=== PATIENT | male | born 1965 | race Caucasian/White ===

== ENCOUNTER → 2016-12-28 | Outpatient (CLI) | payer OTHER ==
--- NOTE | 2016-12-28 23:04 | MR ---
EXAMINATION TYPE: MR knee LT wo con DATE OF EXAM: 12/28/2016 6:12 PM COMPARISON: NONE HISTORY: Left Knee Pain for 30 years TECHNIQUE: Multiplanar, multisequence imaging of the left knee is performed without IV contrast. FINDINGS: The anterior and posterior cruciate ligaments are intact. There is a small horizontal defect in the a nterior horn of the medial meniscus. There is similar horizontal linear increased signal in the anter ior horn lateral meniscus. The collateral ligaments are intact. There is a small knee joint effusion. I see no bony destructive process. There is no sign of a fracture. There are small subchondral areas of increased signal on both sides of the medial joint space consistent with degenerative cyst format ion. There is slight narrowing of the medial joint space. IMPRESSION: Osteoarthritic changes mainly in the medial joint space. Small horizontal tears of the anterior horn of the lateral meniscus and the medial meniscus. Small degenerative cyst formation in the medial comp artment on both sides of the medial joint space. Small joint effusion.
== END | disposition home or self-care (01) ==
LOC: RADMRIMAIN 17:35
PROVIDERS: ATTEND Orthopaedic Surgery
DX: S83.282A Other tear of lateral meniscus, current injury, left knee, initial encounter (principal); M17.12 Unilateral primary osteoarthritis, left knee; M25.862 Other specified joint disorders, left knee

== ENCOUNTER 2019-09-22 11:52 | Inpatient (IN) | payer OTHER ==
[2019-09-22] MEDS ORDERED: KETOROLAC 60 MG/2 ML VIAL IVP STA (12:35)
[2019-09-22] MEDS ORDERED: ONDANSETRON 4 MG/2 ML VIAL IVP STA (12:35)
[2019-09-22] MEDS ORDERED: HYDROmorphone 1 MG/ML 1 ML SYRINGE IVP STA (12:35)
--- NOTE | 2019-09-22 12:40 | ED ---
General Adult HPI - General Chief complaint: Fall Stated complaint: Fell shoulder pain/[facility] Time Seen by Provider: 09/22/19 12:15 Source: patient, RN notes reviewed, old records reviewed Mode of arrival: wheelchair Limitations: no limitations - History of Present Illness Initial comments: This is a 53-year-old male who presents emergency Department complaining of left lateral left anterior rib pain. Patient states he fell on the ice yesterday went [facility] where they diagnosed him with 5 fractured ribs. Patient states the pain is unbearable today and he is not short of breath but it is difficult to breathe. His any kind of movement makes the pain worse. Patient denies any other injury at this time. Patient states yesterday did a CAT scan of his chest and an x-ray of his chest as well as a shoulder x-ray. Patient denies any fevers. Patient denies any belly pain. Patient has any back pain. Patient states he did hit his head history also CAT scan his head was normal. Patient denies any headache today or any neck pain today - Related Data Allergies Allergy/AdvReac Type Severity Reaction Status Date / Time Sulfa (Sulfonamide Allergy Rash/Hives Verified 09/22/19 12:19 Antibiotics) Review of Systems ROS Statement: Those systems with pertinent positive or pertinent negative responses have been documented in the HPI. ROS Other: All systems not noted in ROS Statement are negative. Past Medical History Past Medical History: Hypertension History of Any Multi-Drug Resistant Organisms: None Reported Past Surgical History: No Surgical Hx Reported Past Psychological History: Anxiety, Depression Smoking Status: Never smoker Past Alcohol Use History: None Reported Past Drug Use History: None Reported General Exam - General Exam Comments Initial Comments: GENERAL: Patient is well-developed and well-nourished. Patient is nontoxic and well- hydrated and is in moderate distress. Patient is diaphoretic ENT: Neck is soft and supple. No significant lymphadenopathy is noted. Oropharynx is clear. Moist mucous membranes. Neck has full range of motion without eliciting any pain. EYES: The sclera were anicteric and conjunctiva were pink and moist. Extraocular movements were intact and pupils were equal round and reactive to light. Eyelids were unremarkable. PULMONARY: Unlabored respirations. Good breath sounds bilaterally. No audible rales rhonchi or wheezing was noted. CARDIOVASCULAR: There is a regular rate and rhythm without any murmurs gallops or rubs. Patient has significant left anterior chest wall pain as well as left lateral chest wall pain. ABDOMEN: Soft and nontender with normal bowel sounds. No palpable organomegaly was noted. There is no palpable pulsatile mass. SKIN: Skin is clear with no lesions or rashes and otherwise unremarkable. NEUROLOGIC: Patient is alert and oriented x3. Cranial nerves II through XII are grossly intact. Motor and sensory are also intact. Normal speech, volume and content. Symmetrical smile. MUSCULOSKELETAL: Normal extremities with adequate strength and full range of motion. Moving the left arm does elicit pain in the chest and a little pain in the shoulder. Patient's pain. To be anterior shoulder LYMPHATICS: No significant lymphadenopathy is noted PSYCHIATRIC: Normal psychiatric evaluation. Limitations: no limitations Course Vital Signs 09/22/19 09/22/19 12:15 13:39 Temperature 99.2 F Pulse Rate 105 H 95 Respiratory 30 H 28 H Rate Blood Pressure 147/98 142/64 O2 Sat by Pulse 91 L 92 L Oximetry Medical Decision Making - Medical Decision Making Patient was given Toradol and Dilaudid when he arrived and was feeling considerably better but still having quite a bit of pain and the oxygen down to about 9192% on room air. Chest x-ray shows subcutaneous air and rib fractures. I reviewed the x-rays and CAT scan from [facility] from yesterday. I spoke with Dr. Borrero he wanted the patient admitted to him with a consult to anesthesia and pulmonary. At this time he did not want a CAT scan of the chest. I wrote admitting orders Disposition Clinical Impression: Subcutaneous air, Multiple fractures of ribs of left side Disposition: ADMITTED IP TO THIS HOSP Referrals: Joseph Turner DO [Primary Care Provider] - 1-2 days Time of Disposition: 14:04
--- NOTE | 2019-09-22 13:24 | XR ---
EXAMINATION TYPE: XR chest 2V DATE OF EXAM: 09/22/2019 COMPARISON: Outside study 09/21/2019 HISTORY: Shortness of breath TECHNIQUE: Frontal and lateral views of the chest are obtained. FINDINGS: Lung volumes are diminished. There is subcutaneous emphysema along the left chest wall extending into the neck. Multiple left-sided rib fractures are again noted. Definite pneumothorax not identified wi th certainty. Basilar atelectasis and elevation right hemidiaphragm. Heart size is stable. Mediastinal structures are stable and grossly unremarkable. No evidence for hilar prominence. Degenerative changes dorsal spine. IMPRESSION: 1. There is subcutaneous emphysema along the left chest wall extending into the neck. Multiple left-s ided rib fractures are again noted. Definite pneumothorax not identified with certainty. Basilar atel ectasis and elevation right hemidiaphragm.
[2019-09-22] MEDS ORDERED: NALOXONE 0.4 MG/ML 1 ML VIAL IV PRN (14:05)
[2019-09-22] MEDS: HYDROmorphone 1 MG/ML 1 ML SYRINGE IVP PRN ×3 (15:19→23:32)
[2019-09-22] MEDS: LIDOCAINE 5% PATCH TOPICAL SCH (18:48)
[2019-09-22] MEDS ORDERED: ALPRAZolam 0.25 MG TAB PO PRN (20:38)
[2019-09-22] MEDS ORDERED: ONDANSETRON 4 MG TAB PO PRN (20:38)
[2019-09-22] MEDS: AMITRIPTYLINE HCL 25 MG TAB PO SCH (21:54)
[2019-09-22] MEDS: busPIRone HCl 5 MG TAB PO SCH (21:54)
[2019-09-22] MEDS: TAMSULOSIN 0.4 MG CAP.ER.24H PO SCH (21:54)
[2019-09-22] MEDS: HYDROcodone/APAP 10-325MG 1 EACH TAB PO PRN (21:54)
[2019-09-22] MEDS: PANTOPRAZOLE 40 MG TABLET PO SCH (21:58)
[2019-09-23 00:29] LABS: Glucose,Whole Blood 135 mg/dL (75-99)
--- NOTE | 2019-09-23 01:24 | XR ---
EXAMINATION TYPE: XR chest 1V portable DATE OF EXAM: 09/23/2019 COMPARISON: Yesterday HISTORY: Difficulty breathing TECHNIQUE: Single view FINDINGS: There is poor inspiration. There is elevation of the diaphragms. There is apparent soft tis ramy air on the left lateral chest wall and base of the neck. There is no heart failure. There is no p neumothorax. IMPRESSION: Atelectasis at the lung bases unchanged compared to yesterday. Soft tissue air on the lef t side. No heart failure seen.
[2019-09-23] MEDS ORDERED: RX INFO: IV CONTRAST WAS GIVEN 1 EACH MISC MISCELLANE PRN (02:33)
[2019-09-23 03:28] LABS: Basophils # (A) 0.3 k/uL (0-0.2); Basophils % (A) 2 %; Eosinophils # (A) 0.3 k/uL (0-0.7); Eosinophils % (A) 1 %; HCT 45.6 % (39.0-53.0); HGB 14.8 gm/dL (13.0-17.5); Lymphocytes # (A) 0.7 k/uL (1.0-4.8); Lymphocytes % (A) 3 %; MCH 29.6 pg (25.0-35.0); MCHC 32.5 g/dL (31.0-37.0); MCV 91.1 fL (80.0-100.0); Mean Platelet Volume 7.3; Monocytes # (A) 1.3 k/uL (0-1.0); Monocytes % (A) 6 %; Neutrophils # (A) 19.4 k/uL (1.3-7.7); Neutrophils % (A) 87 %; Platelet Count 215 k/uL (150-450); RDW 13.2 % (11.5-15.5); WBC 22.3 k/uL (3.8-10.6)
[2019-09-23 03:34] LABS: Calcium 8.9 mg/dL (8.4-10.2); Potassium 4.6 mmol/L (3.5-5.1)
[2019-09-23] MEDS: HYDROmorphone 1 MG/ML 1 ML SYRINGE IVP PRN ×3 (03:40→14:23)
--- NOTE | 2019-09-23 04:27 | CT ---
EXAMINATION TYPE: CT chest angio for PE DATE OF EXAM: 09/23/2019 COMPARISON: HISTORY: SOB CT DLP: 1073 mGycm Automated exposure control for dose reduction was used. CONTRAST: Performed with IV Contrast, patient injected with 80 mL of Isovue 370. Multiple axial sections were obtained from the thoracic inlet to the diaphragm with intravenous contr ast. There are 3-D post processed images. There is extensive soft tissue air on the left side of the chest extending into the neck. There is no mediastinal adenopathy. There are no hilar masses. Heart size is normal. There is some atelectasis a t the lung bases. No pneumothorax. Thoracic aorta shows no aneurysm or dissection. Exam limited by zora alonzo's size. I see no filling defects in the pulmonary arteries. The bony thorax is intact. IMPRESSION: No evidence of pulmonary embolism. Extensive left-sided soft tissue air. Bilateral infiltrates and atelectasis in the mid and lower lung vela.
[2019-09-23] MEDS: HYDROcodone/APAP 10-325MG 1 EACH TAB PO PRN ×2 (06:14→09:56)
[2019-09-23] MEDS: PANTOPRAZOLE 40 MG TABLET PO SCH ×2 (06:23→18:26)
[2019-09-23] MEDS: LIDOCAINE 5% PATCH TOPICAL SCH (08:20)
[2019-09-23] MEDS: LISINOPRIL 20 MG TAB PO SCH (08:21)
[2019-09-23] MEDS: buPROPion XL 300 MG TAB.ER.24H PO SCH (08:21)
[2019-09-23] MEDS ORDERED: NON FORMULARY DRUG (Fluoxetine Hcl [Prozac] 40 MG) PO SCH (09:00)
[2019-09-23] MEDS ORDERED: FLUoxetine HCL 20 MG CAP PO SCH (09:00)
[2019-09-23] MEDS ORDERED: methylPREDNISolone SOD SUCCI 40 MG/ML 1 ML VIAL IV SCH (09:45)
[2019-09-23 11:30] LABS: ABG Base Excess 0.9 mmol/L; ABG HCO3 26 mmol/L (21-25); ABG PCO2 46 mmHg (35-45); ABG PH 7.36 (7.35-7.45); ABG PO2 92 mmHg (83-108); ABG TCO2 28 mmol/L (19-24); Allen Test Performed? Yes
[2019-09-23] MEDS: SODIUM CHLORIDE 0.9% 1,000 ML IV SCH ×2 (11:46→21:35)
[2019-09-23] MEDS: IPRATROPIUM-ALBUTEROL 3 ML NEB INHALATION SCH ×3 (11:50→20:09)
--- NOTE | 2019-09-23 13:02 | US ---
EXAMINATION TYPE: US kidneys/renal and bladder DATE OF EXAM: 09/23/2019 COMPARISON: NONE CLINICAL HISTORY: assess for CKD. CKD, exam done portable. EXAM MEASUREMENTS: Right Kidney: 11.9 x 5.9 x 5.3 cm Left Kidney: n/a Difficult and limited study due to patient body habitus Right Kidney: limited visualization, no hydronephrosis or masses seen Left Kidney: not visualized due to overlying bowel gas Bladder: wnl, sonolucent Bilateral Jets seen: no IMPRESSION: Limited examination with nonvisualization of the left kidney. Ultrasound portions visualized are unre markable
--- NOTE | 2019-09-23 13:52 | P.GSCN ---
History of Present Illness Consult date: 09/23/19 Reason for Consult: Fractured ribs Requesting physician: Leonela Lim History of present illness: This is a 53-year-old active gentleman who follows on an outpatient basis with Dr. Joseph Angel. He has a previous medical history of hypertension, anxiety/depression. Apparently he fell on the ice on Saturday in the parking lot on the way to his truck. He states he believes he fell on his shoulder but he blacked out so he is not positive, and there were no witnesses to his fall. He went to [facility] for evaluation, chest x-ray completed there demonstrated left-sided rib fractures. In addition a CT of the brain was completed per the emergency room notes, and there was no acute head injury. He was treated with pain medication and discharged home. Once home his pain continued to increase and he had increased difficulty breathing so he presented to [facility] emergency room for further evaluation and treatment. Chest x-ray demonstrated low lung volumes, subcutaneous emphysema on the left chest wall, and re- demonstration of left-sided rib fractures. He was admitted for pain control with consultation placed to Dr. Lim from pulmonology as well as anesthesia. He continued to have pain and increased shortness of breath and was taken for chest CTA this morning which confirmed subcutaneous emphysema, atelectasis, and rib fractures in ribs 2-7 with some displacement of rib #[address] Villaseñor from cardiothoracic surgery was consulted for recommendations. Review of Systems Review of systems was completed and was negative except as noted. - Cardiovascular Reports chest pain, Reports shortness of breath Past Medical History Past Medical History: Hypertension Additional Past Medical History / Comment(s): Fall from standing from ice with temporary loss of consciousness, rib fractures History of Any Multi-Drug Resistant Organisms: None Reported Past Surgical History: Tonsillectomy Additional Past Surgical History / Comment(s): (R) ankle repair, urethral strictures Past Anesthesia/Blood Transfusion Reactions: No Reported Reaction Past Psychological History: Anxiety, Depression Smoking Status: Never smoker Past Alcohol Use History: None Reported Past Drug Use History: None Reported - Past Family History Father Family Medical History: Renal Disease Additional Family Medical History / Comment(s): Still living, HD patient Mother Family Medical History: No Reported History Medications and Allergies Home Medications Medication Instructions Recorded Confirmed Type ALPRAZolam [Xanax] 0.25 mg PO BID PRN 09/22/19 09/22/19 History Amitriptyline HCl [Elavil] 25 mg PO HS 09/22/19 09/22/19 History Deplin .3/4 1 tab PO DAILY@1700 09/22/19 09/22/19 History Enalapril [Vasotec] 10 mg PO DAILY 09/22/19 09/22/19 History FLUoxetine HCL [PROzac] 20 mg PO DAILY 09/22/19 09/22/19 History FLUoxetine HCL [PROzac] 40 mg PO DAILY 09/22/19 09/22/19 History HYDROcodone/APAP 10-325MG [[place] 1 tab PO Q6HR PRN 09/22/19 09/22/19 History 10-325] Nortriptyline [Pamelor] 50 mg PO HS 09/22/19 09/22/19 History Omeprazole 20 mg PO BID 09/22/19 09/22/19 History Ondansetron [Zofran] 4 - 8 mg PO Q8H PRN 09/22/19 09/22/19 History Tamsulosin [Flomax] 0.4 mg PO HS 09/22/19 09/22/19 History buPROPion HCL [Wellbutrin XL] 300 mg PO DAILY 09/22/19 09/22/19 History buPROPion XL [Wellbutrin Xl] 150 mg PO DAILY 09/22/19 09/22/19 History busPIRone HCL 15 mg PO HS 09/22/19 09/22/19 History Allergies Allergy/AdvReac Type Severity Reaction Status Date / Time Sulfa (Sulfonamide Allergy Rash/Hives Verified 09/22/19 12:19 Antibiotics) Surgical - Exam Vital Signs Temp Pulse Resp BP Pulse Ox 99.2 F 105 H 30 H 147/98 91 L 09/22/19 12:15 09/22/19 12:15 09/22/19 12:15 09/22/19 12:15 09/22/19 12:15 - General well developed, well nourished, moderate distress, moderate pain, obese - Eyes PERRL, normal ocular movement - ENT no hearing loss - Neck no masses, no bruits, trachea midline - Respiratory Lungs sounds diminished bilaterally. Respirations even but slightly taccypneic. Currently on BiPAP at 50%, IPAP 14, EPAP 4. Was only able to achieve 500 mL on his incentive spirometry. There does appear to be some subcu emphysema on the left chest wall with left chest appearing slightly larger than the right chest. - Cardiovascular S1, S2 present. Tachycardic but regular rate and rhythm, sinus tach on telemetry. Palpable peripheral pulses bilaterally. No edema present. No calf pain or tenderness noted. - Abdomen Abdomen: soft, non tender, bowel sounds - Genitourinary Deferred - Rectum Deferred - Integumentary no rash, no growths - Neurologic normal coordination, normal sensation - Musculoskeletal normal posture - Psychiatric oriented to time, oriented to person, oriented to place, speech is normal Results - Labs 09/23/19 03:09 09/23/19 03:09 Abnormal Lab Results - Last 24 Hours (Table) 09/23/19 09/23/19 09/23/19 Range/Units 00:17 03:09 03:09 WBC 22.3 H (3.8-10.6) k/uL Neutrophils # 19.4 H (1.3-7.7) k/uL Lymphocytes # 0.7 L (1.0-4.8) k/uL Monocytes # 1.3 H (0-1.0) k/uL Basophils # 0.3 H (0-0.2) k/uL ABG pCO2 (35-45) mmHg ABG HCO3 (21-25) mmol/L ABG Total CO2 (19-24) mmol/L Sodium 132 L (137-145) mmol/L Chloride 94 L (98-107) mmol/L BUN 43 H (9-20) mg/dL Creatinine 1.40 H (0.66-1.25) mg/dL Glucose 141 H (74-99) mg/dL POC Glucose (mg/dL) 135 H (75-99) mg/dL 09/23/19 Range/Units 11:23 WBC (3.8-10.6) k/uL Neutrophils # (1.3-7.7) k/uL Lymphocytes # (1.0-4.8) k/uL Monocytes # (0-1.0) k/uL Basophils # (0-0.2) k/uL ABG pCO2 46 H (35-45) mmHg ABG HCO3 26 H (21-25) mmol/L ABG Total CO2 28 H (19-24) mmol/L Sodium (137-145) mmol/L Chloride (98-107) mmol/L BUN (9-20) mg/dL Creatinine (0.66-1.25) mg/dL Glucose (74-99) mg/dL POC Glucose (mg/dL) (75-99) mg/dL Diabetes panel 09/23/19 Range/Units 03:09 Sodium 132 L (137-145) mmol/L Potassium 4.6 (3.5-5.1) mmol/L Chloride 94 L (98-107) mmol/L Carbon Dioxide 28 (22-30) mmol/L BUN 43 H (9-20) mg/dL Creatinine 1.40 H (0.66-1.25) mg/dL Glucose 141 H (74-99) mg/dL Calcium 8.9 (8.4-10.2) mg/dL Calcium panel 09/23/19 Range/Units 03:09 Calcium 8.9 (8.4-10.2) mg/dL Pituitary panel 09/23/19 Range/Units 03:09 Sodium 132 L (137-145) mmol/L Potassium 4.6 (3.5-5.1) mmol/L Chloride 94 L (98-107) mmol/L Carbon Dioxide 28 (22-30) mmol/L BUN 43 H (9-20) mg/dL Creatinine 1.40 H (0.66-1.25) mg/dL Glucose 141 H (74-99) mg/dL Calcium 8.9 (8.4-10.2) mg/dL Adrenal panel 09/23/19 Range/Units 03:09 Sodium 132 L (137-145) mmol/L Potassium 4.6 (3.5-5.1) mmol/L Chloride 94 L (98-107) mmol/L Carbon Dioxide 28 (22-30) mmol/L BUN 43 H (9-20) mg/dL Creatinine 1.40 H (0.66-1.25) mg/dL Glucose 141 H (74-99) mg/dL Calcium 8.9 (8.4-10.2) mg/dL Assessment and Plan Assessment: 1. Fall from standing with loss of consciousness with subsequent rib fractures 2. Left-sided chest pain, shortness of breath secondary to rib fractures 3. Subcutaneous emphysema 4. History of hypertension 5. History of anxiety/depression Plan: The patient was seen and examined at the bedside in the intensive care unit with Dr. Villaseñor. Chart/diagnostics were reviewed. No recommendations for surgery at this time. Pain control per anesthesia. Pulmonary management per Dr. Lim. Medical management of other comorbidities per primary care service. Thank you Dr. Lim for this consult. Please call us with any further questions. Time with Patient: Greater than 30
[2019-09-23 14:02] LABS: Appearance,Urine Clear (Clear); Bacteria,Urine Rare /hpf; Bilirubin,Urine Negative (Negative); Blood,Urine Negative (Negative); Color,Urine Yellow; Glucose,Urine (UA) Negative (Negative); Ketones,Urine Negative (Negative); Leukocyte Esterase,Urine Trace (Negative); Mucus,Urine Few /hpf; Nitrite,Urine Negative (Negative); PH, Urine 5.5 (5.0-8.0); Protein,Urine Trace (Negative); RBC,Urine 3 /hpf (0-5); Squamous Epithelial Cell,Urine 3 /hpf (0-4); Urobilinogen,Urine <2.0 mg/dL (<2.0); WBC,Urine 7 /hpf (0-5)
[2019-09-23 14:04] LABS: Specific Gravity,Urine >1.050 (1.001-1.035)
--- NOTE | 2019-09-23 14:18 | P.GSHP ---
History of Present Illness H&P Date: 09/23/19 Chief Complaint: pain CHIEF COMPLAINT: pain HISTORY OF PRESENT ILLNESS: 53-year-old male who fell 2 days ago on a patch of ice. Patient was evaluated at [facility]. He was diagnosed with rib fractures and discharged home. Patient reports the pain continued to get worse along with some worsening shortness of breath so patient presented to the ER for further evaluation. Patient is currently resting in bed. He is on a bipap at 50% Fio2. PAST MEDICAL HISTORY: See list. PAST SURGICAL HISTORY: See list. SOCIAL HISTORY: No illicit drug use. REVIEW OF SYSTEMS: CONSTITUTIONAL: Denies fever or chills. HEENT: Denies blurred vision, vision changes, or eye pain. Denies hemoptysis CARDIOVASCULAR: Denies chest pain with inspiration secondary to rib fractures RESPIRATORY: Reports shortness of breath. GASTROINTESTINAL: Refer to [facility] for pertinent findings HEMATOLOGIC: Denies bleeding disorders. GENITOURINARY: Denies any blood in urine. SKIN: Denies pruitis. Denies rash. PHYSICAL EXAM: VITAL SIGNS: Reviewed. GENERAL: Well-developed in no acute distress. RESP: On bipap. Respirations equal. Subcutaneous emphysema present on the left side of chest. HEENT: No sclera icterus. Extraocular movements grossly intact. Moist buccal mucosa. Head is atraumatic, normocephalic. ABDOMEN: Soft. Nondistended. Nontender. NEUROLOGIC: Alert and oriented. Cranial nerves II through XII grossly intact. LABORATORY DATA: WBC 22.3. Hemoglobin 14.8. Platelet count 215. Sodium 132. Potassium 4.6. BUN 43. Creatinine 1.4. IMAGIN. Chest x-ray: Subcutaneous emphysema along the left chest wall extending to the neck. Multiple left-sided rib fractures are noted. 2. CTA: No evidence of pulmonary embolism. Extensive left-sided soft tissue air. Bilateral infiltrates and atelectasis in the mid and lower lung vela. ASSESSMENT: 1. Recent fall from standing 2. Left sided rib fractures 3. Subcutaneous emphysema PLAN: -Continue ICU management per Dr. Lim -Continue bipap -Incentive spirometer 10 times an hour -Activity as tolerated -Cardiothoracic surgery consulted. Await recommendations -Anesthesia consult placed for pain management. Nurse practitioner note has been reviewed by physician. Signing provider agrees with the documented findings, assessment, and plan of care. Past Medical History Past Medical History: Hypertension Additional Past Medical History / Comment(s): Fall from standing from ice with temporary loss of consciousness, rib fractures History of Any Multi-Drug Resistant Organisms: None Reported Past Surgical History: Tonsillectomy Additional Past Surgical History / Comment(s): (R) ankle repair, urethral strictures Past Anesthesia/Blood Transfusion Reactions: No Reported Reaction Past Psychological History: Anxiety, Depression Smoking Status: Never smoker Past Alcohol Use History: None Reported Past Drug Use History: None Reported - Past Family History Father Family Medical History: Renal Disease Additional Family Medical History / Comment(s): Still living, HD patient Mother Family Medical History: No Reported History Medications and Allergies Home Medications Medication Instructions Recorded Confirmed Type ALPRAZolam [Xanax] 0.25 mg PO BID PRN 09/22/19 09/22/19 History Amitriptyline HCl [Elavil] 25 mg PO HS 09/22/19 09/22/19 History Deplin 15/90.3/4 1 tab PO DAILY@1700 09/22/19 09/22/19 History Enalapril [Vasotec] 10 mg PO DAILY 09/22/19 09/22/19 History FLUoxetine HCL [PROzac] 20 mg PO DAILY 09/22/19 09/22/19 History FLUoxetine HCL [PROzac] 40 mg PO DAILY 09/22/19 09/22/19 History HYDROcodone/APAP 10-325MG [[place] 1 tab PO Q6HR PRN 09/22/19 09/22/19 History 10-325] Nortriptyline [Pamelor] 50 mg PO HS 09/22/19 09/22/19 History Omeprazole 20 mg PO BID 09/22/19 09/22/19 History Ondansetron [Zofran] 4 - 8 mg PO Q8H PRN 09/22/19 09/22/19 History Tamsulosin [Flomax] 0.4 mg PO HS 09/22/19 09/22/19 History buPROPion HCL [Wellbutrin XL] 300 mg PO DAILY 09/22/19 09/22/19 History buPROPion XL [Wellbutrin Xl] 150 mg PO DAILY 09/22/19 09/22/19 History busPIRone HCL 15 mg PO HS 09/22/19 09/22/19 History Allergies Allergy/AdvReac Type Severity Reaction Status Date / Time Sulfa (Sulfonamide Allergy Rash/Hives Verified 09/22/19 12:19 Antibiotics) Surgical - Exam Vital Signs Temp Pulse Resp BP Pulse Ox 99.2 F 105 H 30 H 147/98 91 L 09/22/19 12:15 09/22/19 12:15 09/22/19 12:15 09/22/19 12:15 09/22/19 12:15 Results - Labs 09/23/19 03:09 09/23/19 03:09 Abnormal Lab Results - Last 24 Hours (Table) 09/23/19 09/23/19 09/23/19 Range/Units 00:17 03:09 03:09 WBC 22.3 H (3.8-10.6) k/uL Neutrophils # 19.4 H (1.3-7.7) k/uL Lymphocytes # 0.7 L (1.0-4.8) k/uL Monocytes # 1.3 H (0-1.0) k/uL Basophils # 0.3 H (0-0.2) k/uL ABG pCO2 (35-45) mmHg ABG HCO3 (21-25) mmol/L ABG Total CO2 (19-24) mmol/L Sodium 132 L (137-145) mmol/L Chloride 94 L (98-107) mmol/L BUN 43 H (9-20) mg/dL Creatinine 1.40 H (0.66-1.25) mg/dL Glucose 141 H (74-99) mg/dL POC Glucose (mg/dL) 135 H (75-99) mg/dL Ur Specific [place] (1.001-1.035) Urine Protein (Negative) Ur Leukocyte Esterase (Negative) Urine WBC (0-5) /hpf Urine Bacteria (None) /hpf Urine Mucus (None) /hpf 09/23/19 09/23/19 Range/Units 11:23 13:25 WBC (3.8-10.6) k/uL Neutrophils # (1.3-7.7) k/uL Lymphocytes # (1.0-4.8) k/uL Monocytes # (0-1.0) k/uL Basophils # (0-0.2) k/uL ABG pCO2 46 H (35-45) mmHg ABG HCO3 26 H (21-25) mmol/L ABG Total CO2 28 H (19-24) mmol/L Sodium (137-145) mmol/L Chloride (98-107) mmol/L BUN (9-20) mg/dL Creatinine (0.66-1.25) mg/dL Glucose (74-99) mg/dL POC Glucose (mg/dL) (75-99) mg/dL Ur Specific [place] >1.050 H (1.001-1.035) Urine Protein Trace H (Negative) Ur Leukocyte Esterase Trace H (Negative) Urine WBC 7 H (0-5) /hpf Urine Bacteria Rare H (None) /hpf Urine Mucus Few H (None) /hpf Diabetes panel 09/23/19 Range/Units 03:09 Sodium 132 L (137-145) mmol/L Potassium 4.6 (3.5-5.1) mmol/L Chloride 94 L (98-107) mmol/L Carbon Dioxide 28 (22-30) mmol/L BUN 43 H (9-20) mg/dL Creatinine 1.40 H (0.66-1.25) mg/dL Glucose 141 H (74-99) mg/dL Calcium 8.9 (8.4-10.2) mg/dL Calcium panel 09/23/19 Range/Units 03:09 Calcium 8.9 (8.4-10.2) mg/dL Pituitary panel 09/23/19 Range/Units 03:09 Sodium 132 L (137-145) mmol/L Potassium 4.6 (3.5-5.1) mmol/L Chloride 94 L (98-107) mmol/L Carbon Dioxide 28 (22-30) mmol/L BUN 43 H (9-20) mg/dL Creatinine 1.40 H (0.66-1.25) mg/dL Glucose 141 H (74-99) mg/dL Calcium 8.9 (8.4-10.2) mg/dL Adrenal panel 09/23/19 Range/Units 03:09 Sodium 132 L (137-145) mmol/L Potassium 4.6 (3.5-5.1) mmol/L Chloride 94 L (98-107) mmol/L Carbon Dioxide 28 (22-30) mmol/L BUN 43 H (9-20) mg/dL Creatinine 1.40 H (0.66-1.25) mg/dL Glucose 141 H (74-99) mg/dL Calcium 8.9 (8.4-10.2) mg/dL
--- NOTE | 2019-09-23 14:29 | P.CNPUL ---
History of Present Illness Consult date: 09/23/19 Reason for consult: other (Multiple rib fractures and subcutaneous emphysema) Chief complaint: Chest pain and shortness of breath History of present illness: This is a 53-year-old white male with history of hypertension, depression, patient fell on ice on Saturday, 3 days ago. He landed on his left side and left shoulder. Patient developed significant pain and crepitation in the left sided chest wall area and neck area. Patient was seen at [facility], and he was diagnosed as having multiple left-sided rib fractures. Workup for acute head injury was negative. Patient was placed on mostly pain medications and sent home from the ER. However his shortness of breath has become more pronounced, and has been developing more left-sided chest pain. Presented to the ER here yesterday, and he was noted to have significant subcutaneous emphysema, multiple left-sided rib fractures, patient was admitted, and based on the initial chest x-ray, there was no evidence of pneumothorax. Patient was admitted, however late last night, the patient developed more shortness of breath, and he was developing more diaphoresis. Transferred to the ICU with worsening shortness of breath, and patient was noted to be diaphoretic. CT angiogram of the chest showed no evidence of pulmonary embolism, however there was evidence of significant subcutaneous emphysema, atelectasis, multiple rib fractures 2 through 7, some displacement of rib #6 and rib #7. There was also evidence of small left-sided pneumothorax. Not appreciated on the chest x-ray, but could be seen on the CT of the chest, extremely small and minimal. Patient was admitted to the ICU, and I was asked to see him on consultation. After reviewing his est x-ray, CT of the chest, and after evaluating the patient, I recommended cardiothoracic surgery to evaluate the patient, and the option would be either conservatively measures or possibly place a left sided chest tube since his subcutaneous emphysema seems to be getting worse, and he clearly has a small tiny left-sided pneumothorax. In the meantime I have recommended anesthesia to see the patient, and the patient will be going down for an epidural catheter placement for pain control. During my evaluation, patient was noted to have extremely shallow breathing, and I recommended placing the patient on BiPAP with IPAP of 14 and EPAP of 4. That seemed to help him significantly, and he was noted to breathe much easier while on BiPAP. I also recommended an echocardiogram to rule out any possibility of cardiac contusion, troponin was also ordered. EKG showed no evidence of acute ischemic changes Review of Systems Constitutional: Denies fever chills or weight loss. HEENT: Denies headache blurred vision dizziness sore throat or earache Pulmonary: As noted in HPI. Cardiac: As noted in HPI. Denies any chest pain, denies any palpitations, but he seems to be quite diaphoretic. GI: Denies any nausea vomiting abdominal pain melena or hematemesis. Genitourinary: Denies any dysuria frequency urgency or hematuria. Musculoskeletal: Mostly left sided chest wall pain. Skin: Denies any rashes. Psychiatric: History of depression presently inactive. Hematologic: Denies any clotting bleeding or bruising Neurologic: Denies any headache blurred vision dizziness or syncope. Lymphatics: Denies any lymphadenopathy. Past Medical History Past Medical History: Hypertension Additional Past Medical History / Comment(s): Fall from standing from ice with temporary loss of consciousness, rib fractures History of Any Multi-Drug Resistant Organisms: None Reported Past Surgical History: Tonsillectomy Additional Past Surgical History / Comment(s): (R) ankle repair, urethral strictures Past Anesthesia/Blood Transfusion Reactions: No Reported Reaction Past Psychological History: Anxiety, Depression Smoking Status: Never smoker Past Alcohol Use History: None Reported Past Drug Use History: None Reported - Past Family History Father Family Medical History: Renal Disease Additional Family Medical History / Comment(s): Still living, HD patient Mother Family Medical History: No Reported History Medications and Allergies Home Medications Medication Instructions Recorded Confirmed Type ALPRAZolam [Xanax] 0.25 mg PO BID PRN 09/22/19 09/22/19 History Amitriptyline HCl [Elavil] 25 mg PO HS 09/22/19 09/22/19 History Deplin 15/90.3/4 1 tab PO DAILY@1700 09/22/19 09/22/19 History Enalapril [Vasotec] 10 mg PO DAILY 09/22/19 09/22/19 History FLUoxetine HCL [PROzac] 20 mg PO DAILY 09/22/19 09/22/19 History FLUoxetine HCL [PROzac] 40 mg PO DAILY 09/22/19 09/22/19 History HYDROcodone/APAP 10-325MG [[place] 1 tab PO Q6HR PRN 09/22/19 09/22/19 History 10-325] Nortriptyline [Pamelor] 50 mg PO HS 09/22/19 09/22/19 History Omeprazole 20 mg PO BID 09/22/19 09/22/19 History Ondansetron [Zofran] 4 - 8 mg PO Q8H PRN 09/22/19 09/22/19 History Tamsulosin [Flomax] 0.4 mg PO HS 09/22/19 09/22/19 History buPROPion HCL [Wellbutrin XL] 300 mg PO DAILY 09/22/19 09/22/19 History buPROPion XL [Wellbutrin Xl] 150 mg PO DAILY 09/22/19 09/22/19 History busPIRone HCL 15 mg PO HS 09/22/19 09/22/19 History Allergies Allergy/AdvReac Type Severity Reaction Status Date / Time Sulfa (Sulfonamide Allergy Rash/Hives Verified 09/22/19 12:19 Antibiotics) Physical Exam Vitals: Vital Signs Temp Pulse Pulse Resp BP BP Pulse Ox 09/23/19 12:11 100 09/23/19 12:00 99.4 F 101 H 21 106/85 09/23/19 11:54 98 09/23/19 11:00 99 21 115/86 09/23/19 10:00 99 26 H 106/83 95 09/23/19 09:00 104 H 33 H 125/102 95 09/23/19 08:00 98.4 F 99 23 148/98 96 09/23/19 07:00 97 19 148/98 94 L 09/23/19 06:00 101 H 20 141/91 95 09/23/19 05:00 101 H 19 166/99 94 L 09/23/19 04:00 98.6 F 92 19 144/85 94 L 09/23/19 03:00 92 20 157/104 94 L 09/23/19 02:00 93 26 H 139/99 96 09/23/19 01:00 98.5 F 93 25 H 143/89 95 09/22/19 20:00 98.2 F 101 H 30 H 140/90 94 L 09/22/19 17:01 97.2 F L 98 24 121/89 92 L 09/22/19 15:00 93 24 144/71 91 L Intake and Output 09/22/19 09/23/19 09/23/19 22:59 06:59 14:59 Intake Total 100 245 Output Total 200 355 100 Balance -100 -355 145 Intake: Intake, IV Titration 125 Amount Sodium Chloride 0.9% 1, 125 000 ml @ 125 mls/hr IV . Q8H [facility] Rx#:[id number] Oral 100 120 Output: Urine 200 355 100 Other: Voiding Method Toilet Urinal # Voids 1 Weight 129.274 kg Physical Exam: Revealed a 53-year-old white male diaphoretic looking, complaining of severe pain in the left sided chest wall area Head: Atraumatic normocephalic. HEENT:[Neck is supple.] [No neck masses.] [No thyromegaly.] [No JVD.] PERRLA, EOMI, mild body less 4. Chest: [Palpable subcutaneous emphysema noted on the left side of the chest, tenderness on palpation, diminished breath sounds at the bases especially at the left base. Left side of the chest seems to be larger than the right side of the chest secondary to subcutaneous emphysema. Cardiac Exam: [Normal S1 and S2, no S3 gallop, no murmur.] Abdomen: Obese [Soft, nontender, no megaly, no rebound, no guarding, normal bowel sounds.] Extremities: [No clubbing, no edema, no cyanosis.] Neurological Exam: [No focal neurologic deficit.] Alert oriented 3. Psychiatric: Normal mood, affect and normal mental status examination. Skin: No rashes. Results - Laboratory Findings CBC and BMP: 09/23/19 03:09 09/23/19 03:09 ABG ABG pH 7.36 (7.35-7.45) 09/23/19 11:23 ABG pCO2 46 mmHg (35-45) H 09/23/19 11:23 ABG pO2 92 mmHg (83-108) 09/23/19 11:23 ABG O2 Saturation 97.0 % (94-97) 09/23/19 11:23 Abnormal lab findings: Abnormal Labs 09/23/19 09/23/19 09/23/19 00:17 03:09 03:09 WBC 22.3 H Neutrophils # 19.4 H Lymphocytes # 0.7 L Monocytes # 1.3 H Basophils # 0.3 H ABG pCO2 ABG HCO3 ABG Total CO2 Sodium 132 L Chloride 94 L BUN 43 H Creatinine 1.40 H Glucose 141 H POC Glucose (mg/dL) 135 H Ur Specific [place] Urine Protein Ur Leukocyte Esterase Urine WBC Urine Bacteria Urine Mucus 09/23/19 09/23/19 11:23 13:25 WBC Neutrophils # Lymphocytes # Monocytes # Basophils # ABG pCO2 46 H ABG HCO3 26 H ABG Total CO2 28 H Sodium Chloride BUN Creatinine Glucose POC Glucose (mg/dL) Ur Specific [place] >1.050 H Urine Protein Trace H Ur Leukocyte Esterase Trace H Urine WBC 7 H Urine Bacteria Rare H Urine Mucus Few H - Diagnostic Findings Chest x-ray: image reviewed (As noted in HPI.) CT scan - chest: image reviewed Assessment and Plan Assessment: Impression: Multiple left-sided rib fractures Small left-sided pneumothorax Significant left sided subcutaneous emphysema secondary to pneumothorax Severe pain secondary to multiple rib fractures History of hypertension History of depression. Recommendation: Placed on BiPAP because the patient seems to be having extremely shallow breathing, and obviously developing more atelectasis at the left base. Need control, I think epidural catheter placement would be an excellent idea and he is scheduled to have one in the next 2 hours. Encourage incentive spirometry. Continue bronchodilators. Reviewed EKG and recommended echocardiogram. Patient may benefit from left-sided chest tube placement if he continues to have worsening subcutaneous emphysema. However that decision will be made by the trauma surgeon will admit the patient and the thoracic surgery on consultation. We'll continue to follow. Patient will be kept in the ICU for the next 24 hours at least. Time with Patient: Greater than 30
--- NOTE | 2019-09-23 15:00 | ECHOF ---
Referral Reason:cardiac contusion MEASUREMENTS -------- HEIGHT: 182.9 cm WEIGHT: 129.3 kg BP: MV E Gwyn: 0.59 m/s MV DecT: 191 ms MV A Gwyn: 0.76 m/s MV E/A Ratio: 0.78 RAP: 5.00 mmHg RVSP: 12.80 mmHg FINDINGS -------- Resting tachycardia (HR>100bpm). This was a technically difficult study with suboptimal views. Limited Study. Pt has multiple rib fr actures Grossly normal LV size and systolic function. Unable to comment on regional wall motion. The RV was not well visualized. The left atrium was not well visualized. The right atrium was not well visualized. Lumason used The aortic valve was not well visualized. The mitral valve was not well visualized. The tricuspid valve was not well visualized. The pulmonic valve was not well visualized. There is no pericardial effusion. CONCLUSIONS -------- 1. Resting tachycardia (HR>100bpm). 2. This was a technically difficult study with suboptimal views. 3. Limited Study. Pt has multiple rib fractures 4. Grossly normal LV size and systolic function. Unable to comment on regional wall motion. 5. The RV was not well visualized. 6. The left atrium was not well visualized. 7. The right atrium was not well visualized. 8. Lumason used 9. The aortic valve was not well visualized. 10. The mitral valve was not well visualized. 11. The tricuspid valve was not well visualized. 12. The pulmonic valve was not well visualized. 13. There is no pericardial effusion. BLACK POWDER GLAZING OPERATOR: Korin Crowe RDCS
[2019-09-23] MEDS ORDERED: SODIUM CHLORIDE 0.9% 1,000 ML IV ONE (15:20)
[2019-09-23] MEDS ORDERED: NALOXONE 0.4 MG/ML 1 ML VIAL IV PRN (15:44)
--- NOTE | 2019-09-23 15:53 | P.PCN ---
Date of Procedure: 09/23/19 Description of Procedure: Pre- procedural diagnosis: 1-Multiple rib fractures T2 to T7 Post-procedural diagnosis: 1. Multiple rib fractures T2 to T7 PROCEDURE 1. Continuous thoracic epidural with indwelling catheter ANESTHESIA: Local with 1% lidocaine EBL:None PROCEDURE INDICATION: Consult placed to anesthesia services for thoracic epidural placement for analgesia secondary to multiple rib fractures. Patient having difficulty with adequate respiration and endorsing pleuritic chest pain as well as dyspnea with breathing. PROCEDURE DESCRIPTION / TECHNIQUE: The patient was seen and identified in the preoperative area. Risks, benefits, complications including but not limited to infections ,bleeding ,allergic reaction to the medications ,nerve damage and not complete pain releif, and alternatives were discussed with the patient. The patient agreed to proceed with the procedure and signed the consent. Procedure was done in ICU, patient was placed in the upright position with continuous EKG, blood pressure and SpO2 monitoring. The midthoracic region was prepped sterilely with Betadine 3. Utilizing palpation of spinous process, and localized with 25-gauge needle with 1% lidocaine between T6-T7 paramedian to the T7 spinous process. An 18-gauge 3- 1/2 cm was advanced until T7 lamina was contacted, I then redirected superior and medially, walking off the lamina into the ligamentum flavum. I then utilized a loss or resistance syringe containing 5 mL of preservative-free normal saline and advanced through the ligament until a "loss of resistance" was appreciated. Loss of resistance occurred at 7-1/2 cm. Epidural catheter was then threaded without resistance or difficulty and the Touhy was removed. Epidural catheter was left at 16 cm. Test dose of 1-1/2% lidocaine with 1- 200,000 epi was then administered, 4 mL. Patient denied any motor sensory deficits, any tinnitus, any metallic tastes in the perioral region. Patient did note relief with test dose, and endorsed ease with respiration. Drape was then removed, alcohol swab was utilized to clean the affected area, securement dressing was placed. COMPLICATIONS: None DISPOSITION / PLANS: We'll continue to follow on a daily basis. Please contact anesthesia for any complications or issues.
--- NOTE | 2019-09-23 15:58 | P.PAINCN ---
History of Present Illness - Reason for Consult Consult date: 09/23/19 - History of Present Illness This is a 53-year-old white male with history of hypertension, depression, patient fell on ice on Saturday, 3 days ago. He landed on his left side and left shoulder. Patient developed significant pain and crepitation in the left sided chest wall area and neck area. Patient was seen at [facility], and he was diagnosed as having multiple left-sided rib fractures. Workup for acute head i njury was negative. Patient was placed on mostly pain medications and sent home from the ER. However his shortness of breath has become more pronounced, and has been developing more left-sided chest pain. Presented to the ER here yesterday, and he was noted to have significant subcutaneous emphysema, multiple left-sided rib fractures, patient was admitted, and based on the initial chest x-ray, there was no evidence of pneumothorax. Pain management was contacted for placement of a continuous thoracic epidural for analgesia. Patient is not on any anticoagulation, has been having significa nt dyspnea on exertion, pleuritic chest pain, as well as significant pain with mobilization. He denies any bowel or bladder incontinence, any radicular symptoms into his upper or lower extremities. Review of Systems 14 point review of systems negative except as mentioned in HPI. Past Medical History Past Medical History: Hypertension Additional Past Medical History / Comment(s): Fall from standing from ice with temporary loss of consciousness, rib fractures History of Any Multi-Drug Resistant Organisms: None Reported Past Surgical History: Tonsillectomy Additional Past Surgical History / Comment(s): (R) ankle repair, urethral strictures Past Anesthesia/Blood Transfusion Reactions: No Reported Reaction Past Psychological History: Anxiety, Depression Smoking Status: Never smoker Past Alcohol Use History: None Reported Past Drug Use History: None Reported - Past Family History Father Family Medical History: Renal Disease Additional Family Medical History / Comment(s): Still living, HD patient Mother Family Medical History: No Reported History Medications and Allergies Home Medications Medication Instructions Recorded Confirmed Type ALPRAZolam [Xanax] 0.25 mg PO BID PRN 09/22/19 09/22/19 History Amitriptyline HCl [Elavil] 25 mg PO HS 09/22/19 09/22/19 History [place]in .3/4 1 tab PO DAILY@1700 09/22/19 09/22/19 History Enalapril [Vasotec] 10 mg PO DAILY 09/22/19 09/22/19 History FLUoxetine HCL [PROzac] 20 mg PO DAILY 09/22/19 09/22/19 History FLUoxetine HCL [PROzac] 40 mg PO DAILY 09/22/19 09/22/19 History HYDROcodone/APAP 10-325MG [[place] 1 tab PO Q6HR PRN 09/22/19 09/22/19 History 10-325] Nortriptyline [Pamelor] 50 mg PO HS 09/22/19 09/22/19 History Omeprazole 20 mg PO BID 09/22/19 09/22/19 History Ondansetron [Zofran] 4 - 8 mg PO Q8H PRN 09/22/19 09/22/19 History Tamsulosin [Flomax] 0.4 mg PO HS 09/22/19 09/22/19 History buPROPion HCL [Wellbutrin XL] 300 mg PO DAILY 09/22/19 09/22/19 History buPROPion XL [Wellbutrin Xl] 150 mg PO DAILY 09/22/19 09/22/19 History busPIRone HCL 15 mg PO HS 09/22/19 09/22/19 History Allergies Allergy/AdvReac Type Severity Reaction Status Date / Time Sulfa (Sulfonamide Allergy Rash/Hives Verified 09/22/19 12:19 Antibiotics) Physical Exam Vitals: Vital Signs Temp Pulse Pulse Resp BP BP Pulse Ox 09/23/19 15:31 98 18 94 L 09/23/19 15:25 99 18 99/72 95 09/23/19 15:20 103 H 20 100/72 94 L 09/23/19 14:01 22 123/90 09/23/19 13:00 95 26 H 116/82 09/23/19 12:11 100 09/23/19 12:00 99.4 F 101 H 21 106/85 09/23/19 11:54 98 09/23/19 11:00 99 21 115/86 09/23/19 10:00 99 26 H 106/83 95 09/23/19 09:00 104 H 33 H 125/102 95 09/23/19 08:00 98.4 F 99 23 148/98 96 09/23/19 07:00 97 19 148/98 94 L 01/15/20 06:00 101 H 20 141/91 95 09/23/19 05:00 101 H 19 166/99 94 L 09/23/19 04:00 98.6 F 92 19 144/85 94 L 09/23/19 03:00 92 20 157/104 94 L 09/23/19 02:00 93 26 H 139/99 96 09/23/19 01:00 98.5 F 93 25 H 143/89 95 09/22/19 20:00 98.2 F 101 H 30 H 140/90 94 L 09/22/19 17:01 97.2 F L 98 24 121/89 92 L Intake and Output 09/23/19 09/23/19 09/23/19 06:59 14:59 22:59 Intake Total 620 Output Total 355 350 Balance -355 270 Intake: Intake, IV Titration 375 Amount Sodium Chloride 0.9% 1, 375 000 ml @ 125 mls/hr IV . Q8H [facility] Rx#:[id number] Oral 245 Output: Urine 355 350 Other: Voiding Method Urinal Weight 129.274 kg - Constitutional General appearance: cooperative, mild distress, obese - EENT Eyes: PERRLA, dentition normal ENT: hearing grossly normal, normal oropharynx - Neck Neck: normal ROM - Musculoskeletal Musculoskeletal: strength equal bilaterally - Psychiatric Psychiatric: A&O x's 3, appropriate affect, intact judgment & insight Results CBC & Chem 7: 09/23/19 03:09 09/23/19 03:09 Labs: Abnormal Lab Results - Last 24 Hours (Table) 09/23/19 09/23/19 09/23/19 Range/Units 00:17 03:09 03:09 WBC 22.3 H (3.8-10.6) k/uL Neutrophils # 19.4 H (1.3-7.7) k/uL Lymphocytes # 0.7 L (1.0-4.8) k/uL Monocytes # 1.3 H (0-1.0) k/uL Basophils # 0.3 H (0-0.2) k/uL ABG pCO2 (35-45) mmHg ABG HCO3 (21-25) mmol/L ABG Total CO2 (19-24) mmol/L Sodium 132 L (137-145) mmol/L Chloride 94 L (98-107) mmol/L BUN 43 H (9-20) mg/dL Creatinine 1.40 H (0.66-1.25) mg/dL Glucose 141 H (74-99) mg/dL POC Glucose (mg/dL) 135 H (75-99) mg/dL Ur Specific [place] (1.001-1.035) Urine Protein (Negative) Ur Leukocyte Esterase (Negative) Urine WBC (0-5) /hpf Urine Bacteria (None) /hpf Urine Mucus (None) /hpf 09/23/19 09/23/19 Range/Units 11:23 13:25 WBC (3.8-10.6) k/uL Neutrophils # (1.3-7.7) k/uL Lymphocytes # (1.0-4.8) k/uL Monocytes # (0-1.0) k/uL Basophils # (0-0.2) k/uL ABG pCO2 46 H (35-45) mmHg ABG HCO3 26 H (21-25) mmol/L ABG Total CO2 28 H (19-24) mmol/L Sodium (137-145) mmol/L Chloride (98-107) mmol/L BUN (9-20) mg/dL Creatinine (0.66-1.25) mg/dL Glucose (74-99) mg/dL POC Glucose (mg/dL) (75-99) mg/dL Ur Specific [place] >1.050 H (1.001-1.035) Urine Protein Trace H (Negative) Ur Leukocyte Esterase Trace H (Negative) Urine WBC 7 H (0-5) /hpf Urine Bacteria Rare H (None) /hpf Urine Mucus Few H (None) /hpf Assessment and Plan Assessment: 1. Multiple fractures left T2 to T7 Plan: Plan for today is to place a continuous thoracic epidural between T5 and T7 for adequate analgesia. PQRS Measure Charge Sheet PQRS Narrative: Smoking Status Never smoker Do You Want the Pneumonia No Vaccine AT THIS TIME? Blood Pressure [Right Arm] 99/72 Blood Pressure 123/90 Pain Intensity [Left Chest] 3 Pain Intensity 5 Pain Scale Used Numeric (1 - 10) Scale Used Numeric (1 - 10) Home Medications: Ambulatory Orders ALPRAZolam [Xanax] 0.25 mg PO BID PRN 09/22/19 Amitriptyline HCl [Elavil] 25 mg PO HS 09/22/19 [place] .3/4 1 tab PO DAILY@1700 09/22/19 Enalapril [Vasotec] 10 mg PO DAILY 09/22/19 FLUoxetine HCL [PROzac] 20 mg PO DAILY 09/22/19 FLUoxetine HCL [PROzac] 40 mg PO DAILY 09/22/19 HYDROcodone/APAP 10-325MG [[place] 10-325] 1 tab PO Q6HR PRN 09/22/19 Nortriptyline [Pamelor] 50 mg PO HS 09/22/19 Omeprazole 20 mg PO BID 09/22/19 Ondansetron [Zofran] 4 - 8 mg PO Q8H PRN 09/22/19 Tamsulosin [Flomax] 0.4 mg PO HS 09/22/19 buPROPion HCL [Wellbutrin XL] 300 mg PO DAILY 09/22/19 buPROPion XL [Wellbutrin Xl] 150 mg PO DAILY 09/22/19 busPIRone HCL 15 mg PO HS 09/22/19
--- NOTE | 2019-09-23 16:22 | P.CONS ---
History of Present Illness - Reason for Consult Consult date: 09/23/19 Medical management Requesting physician: Gilmar Borrero - Chief Complaint rib fractures - History of Present Illness Consultation: This is a pleasant [address] Joseph Angel. Chronic stable medical conditions include hypertension, anxiety, depression, bladder outflow obstruction for which patient takes Flomax. Patient slipped on ice 2 days ago and suffered a fall following on his left chest wall. Patient went to [facility]. He was managed conservatively. Patient continued to feel short of breath. And of course uncontrolled pain. He presented down here. Admitted to the trauma service of Dr. Borrero. Patient is using the IS. No fever no c hills. Did not pass out. Significant pain present. Patient is requiring BiPAP earlier because of shortness of breath. Review of systems: GEN.: Tired EYES: None HEENT: None NECK: None RESPIRATORY: Short of breath and splinting with deep breath CARDIOVASCULAR: None GASTROINTESTINAL: None GENITOURINARY: None MUSCULOSKELETAL: Left chest wall pain LYMPHATICS: None HEMATOLOGICAL: None PSYCHIATRY: None NEUROLOGICAL: None. 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 EYES: Pupils equal. Conjunctiva normal. HEENT: External appearance of nose and ears normal, oral cavity grossly normal. NECK: JVD not raised; masses not palpable. HEART: First and second heart sounds are normal; no edema. LUNGS: Respiratory rate increased, diminished breath sounds on the left side. ABDOMEN: Soft, nontender, liver spleen not palpable, no masses palpable. PSYCH: Alert and oriented x3; mood and affect anxiousl. NEUROLOGICAL: Cranial nerves grossly intact; no facial asymmetry, power and sensation grossly intact. LYMPHATICS: No lymph nodes palpable in the axilla and neck CHEST full: Tenderness of the left chest wall INVESTIGATIONS, reviewed in the clinical context: White count 22.3 hemoglobin 14.8 potassium 4.6. 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 -Obesity BMI 36.6 -Renal failure, unclear at this time it is acute versus chronic. Plan: UA has been ordered. Renal ultrasound. ALSO HELP TO DETERMINE IF THERE IS ANY POSTVOID RESIDUAL. HE NEEDS RENAL OFFENSIVE MEDICATION BE TAKEN OFF. OTHER MEDICATIONS TO CONTINUE. PATIENT TO USE RESPIRATORY SPIROMETER FOR PULMONARY TOILET. Patient is being hydrated. We'll check patient's creatinine kinase to rule out rhabdomyolysis. Care was discussed the patient daughter the bedside. Questions were answered. Past Medical History Past Medical History: Hypertension History of Any Multi-Drug Resistant Organisms: None Reported Past Surgical History: Tonsillectomy Additional Past Surgical History / Comment(s): (R) ankle repair, urethral strictures Past Psychological History: Anxiety, Depression Smoking Status: Never smoker Past Alcohol Use History: None Reported Past Drug Use History: None Reported - Past Family History Father Family Medical History: Renal Disease Additional Family Medical History / Comment(s): Still living, HD patient Mother Family Medical History: No Reported History Medications and Allergies Home Medications Medication Instructions Recorded Confirmed Type ALPRAZolam [Xanax] 0.25 mg PO BID PRN 09/22/19 09/22/19 History Amitriptyline HCl [Elavil] 25 mg PO HS 09/22/19 09/22/19 History Deplin 15.3/4 1 tab PO DAILY@1700 09/22/19 09/22/19 History Enalapril [Vasotec] 10 mg PO DAILY 09/22/19 09/22/19 History FLUoxetine HCL [PROzac] 20 mg PO DAILY 09/22/19 09/22/19 History FLUoxetine HCL [PROzac] 40 mg PO DAILY 09/22/19 09/22/19 History HYDROcodone/APAP 10-325MG [[place] 1 tab PO Q6HR PRN 09/22/19 09/22/19 History 10-325] Nortriptyline [Pamelor] 50 mg PO HS 09/22/19 09/22/19 History Omeprazole 20 mg PO BID 09/22/19 09/22/19 History Ondansetron [Zofran] 4 - 8 mg PO Q8H PRN 09/22/19 09/22/19 History Tamsulosin [Flomax] 0.4 mg PO HS 09/22/19 09/22/19 History buPROPion HCL [Wellbutrin XL] 300 mg PO DAILY 09/22/19 09/22/19 History buPROPion XL [Wellbutrin Xl] 150 mg PO DAILY 09/22/19 09/22/19 History busPIRone HCL 15 mg PO HS 09/22/19 09/22/19 History Allergies Allergy/AdvReac Type Severity Reaction Status Date / Time Sulfa (Sulfonamide Allergy Rash/Hives Verified 09/22/19 12:19 Antibiotics) Physical Exam Vitals: Vital Signs Temp Pulse Pulse Resp BP BP Pulse Ox 09/23/19 07:00 97 19 148/98 94 L 09/23/19 06:00 101 H 20 141/91 95 09/23/19 05:00 101 H 19 166/99 94 L 09/23/19 04:00 98.6 F 92 19 144/85 94 L 09/23/19 03:00 92 20 157/104 94 L 09/23/19 02:00 93 26 H 139/99 96 09/23/19 01:00 98.5 F 93 25 H 143/89 95 09/22/19 20:00 98.2 F 101 H 30 H 140/90 94 L 09/22/19 17:01 97.2 F L 98 24 121/89 92 L 09/22/19 15:00 93 24 144/71 91 L 09/22/19 13:39 95 28 H 142/64 92 L 09/22/19 12:15 99.2 F 105 H 30 H 147/98 91 L Intake and Output 09/22/19 09/23/19 09/23/19 22:59 06:59 14:59 Intake Total 100 120 Output Total 200 355 100 Balance -100 -355 20 Intake: Oral 100 120 Output: Urine 200 355 100 Other: Voiding Method Toilet # Voids 1 Weight 129.274 kg Results CBC & Chem 7: 09/23/19 03:09 09/23/19 03:09 Labs: Abnormal Lab Results - Last 24 Hours (Table) 09/23/19 09/23/19 09/23/19 Range/Units 00:17 03:09 03:09 WBC 22.3 H (3.8-10.6) k/uL Neutrophils # 19.4 H (1.3-7.7) k/uL Lymphocytes # 0.7 L (1.0-4.8) k/uL Monocytes # 1.3 H (0-1.0) k/uL Basophils # 0.3 H (0-0.2) k/uL Sodium 132 L (137-145) mmol/L Chloride 94 L (98-107) mmol/L BUN 43 H (9-20) mg/dL Creatinine 1.40 H (0.66-1.25) mg/dL Glucose 141 H (74-99) mg/dL POC Glucose (mg/dL) 135 H (75-99) mg/dL
[2019-09-23] MEDS: ROPIVACAINE 250 MG, fentaNYL (PF) 1,250 MCG in SODIUM CHLORIDE 0.9% 175 ML EPIDURAL PRN (16:39)
[2019-09-23] MEDS: DEPLIN PO SCH (18:23)
[2019-09-23] MEDS: AMITRIPTYLINE HCL 25 MG TAB PO SCH (21:34)
[2019-09-23] MEDS: TAMSULOSIN 0.4 MG CAP.ER.24H PO SCH (21:34)
[2019-09-23] MEDS: busPIRone HCl 5 MG TAB PO SCH (21:34)
[2019-09-24 05:14] LABS: Basophils % (A) 0 %; Eosinophils # (A) 0.1 k/uL (0-0.7); Eosinophils % (A) 1 %; HCT 36.4 % (39.0-53.0); HGB 12.3 gm/dL (13.0-17.5); Lymphocytes # (A) 0.7 k/uL (1.0-4.8); Lymphocytes % (A) 4 %; MCH 30.6 pg (25.0-35.0); MCHC 33.8 g/dL (31.0-37.0); MCV 90.5 fL (80.0-100.0); Mean Platelet Volume 8.6; Monocytes # (A) 1.2 k/uL (0-1.0); Monocytes % (A) 7 %; Neutrophils # (A) 15.5 k/uL (1.3-7.7); Neutrophils % (A) 87 %; Platelet Count 183 k/uL (150-450); RBC 4.02 m/uL (4.30-5.90); RDW 13.4 % (11.5-15.5); WBC 17.9 k/uL (3.8-10.6)
[2019-09-24 05:30] LABS: Calcium 7.5 mg/dL (8.4-10.2); Potassium 4.1 mmol/L (3.5-5.1)
[2019-09-24] MEDS: PANTOPRAZOLE 40 MG TABLET PO SCH ×2 (06:14→18:31)
[2019-09-24] MEDS: SODIUM CHLORIDE 0.9% 1,000 ML IV SCH ×4 (06:14→23:47)
--- NOTE | 2019-09-24 07:47 | P.PN ---
Progress Note - Text Progress Note Date: 09/24/19 53-year-old gentleman status post thoracic epidural insertion secondary to multiple fractures catheter day #2. Patient doing well VAS 0 out of 10 in severity. No complaints of dyspnea on exertion or chest pain. Patient yet to ambulate will likely get out of bed today. Continue epidural settings are currently.
--- NOTE | 2019-09-24 08:12 | XR ---
EXAMINATION TYPE: XR chest 1V portable DATE OF EXAM: 09/24/2019 Comparison: 09/23/2019 Clinical History: 53-year-old male follow-up pneumothorax Findings: Very low lung volumes with crowded vascular markings, possible pulmonary vascular congestion. Patchy left basilar opacity. Small effusion difficult to exclude. Persistent subcutaneous emphysema left hem ithorax. Heart upper limits of normal in size. Multiple left-sided rib fractures. Impression: 1. Marked hypoventilatory changes, possible mild pulmonary vascular congestion. 2. Small left effusion with adjacent atelectasis and/or consolidation. 3. Persistent subcutaneous emphysema throughout the left hemithorax. Trace left pneumothorax seen on CT not radiographically apparent. No enlarging pneumothorax seen. Multiple left-sided rib fractures.
[2019-09-24] MEDS: IPRATROPIUM-ALBUTEROL 3 ML NEB INHALATION SCH ×4 (08:24→18:58)
[2019-09-24] MEDS: buPROPion XL 300 MG TAB.ER.24H PO SCH (08:34)
[2019-09-24] MEDS: LIDOCAINE 5% PATCH TOPICAL SCH (08:35)
[2019-09-24] MEDS: LISINOPRIL 20 MG TAB PO SCH (08:35)
[2019-09-24] MEDS: FLUOXETINE 20 MG PO SCH (08:36)
--- NOTE | 2019-09-24 12:57 | P.PN ---
Subjective Progress Note Date: 09/24/19 Principal diagnosis: Multiple rib fractures secondary to fall. subcutaneous emphysema This is a 53-year-old white male with history of hypertension, depression, patient fell on ice on Saturday, 3 days ago. He landed on his left side and left shoulder. Patient developed significant pain and crepitation in the left sided chest wall area and neck area. Patient was seen at [facility], and he was diagnosed as having multiple left-sided rib fractures. Workup for acute head injury was negative. Patient was placed on mostly pain medications and sent home from the ER. However his shortness of breath has become more pronounced, and has been developing more left-sided chest pain. Presented to the ER here yesterday, and he was noted to have significant subcutaneous emphysema, multiple left-sided rib fractures, patient was admitted, and based on the initial chest x-ray, there was no evidence of pneumothorax. Patient was admitted, however late last night, the patient developed more shortness of breath, and he was developing more diaphoresis. Transferred to the ICU with worsening shortness of breath, and patient was noted to be diaphoretic. CT angiogram of the chest showed no evidence of pulmonary embolism, however there was evidence of significant subcutaneous emphysema, atelectasis, multiple rib fractures 2 through 7, some displacement of rib #6 and rib #7. There was also evidence of small left-sided pneumothorax. Not appreciated on the chest x-ray, but could be seen on the CT of the chest, extremely small and minimal. Patient was admitted to the ICU, and I was asked to see him on consultation. After reviewing his chest x-ray, CT of the chest, and after evaluating the patient, I recommended cardiothoracic surgery to evaluate the patient, and the option would be either conservatively measures or possibly place a left sided chest tube since his subcutaneous emphysema seems to be getting worse, and he clearly has a small tiny left-sided pneumothorax. In the meantime I have recommended anesthesia to see the patient, and the patient will be going down for an epidural catheter placement for pain control. During my evaluation, patient was noted to have extremely shallow breathing, and I recommended placing the patient on BiPAP with IPAP of 14 and EPAP of 4. That seemed to help him significantly, and he was noted to breathe much easier while on BiPAP. I also recommended an echocardiogram to rule out any possibility of cardiac contusion, troponin was also ordered. EKG showed no evidence of acute ischemic changes Patient was reevaluated today on 09/24/2019, remains in the ICU, feeling much better, remains on epidural for pain control. Patient seems to be breathing easier, compliant with his incentive spirometer. Chest x-ray is reassuring. No evidence of pneumothorax on the chest x-ray, and the subcutaneous emphysema seems to be less. However his kidney functioning seems to be a bit worse, patient developed acute kidney injury most likely related to the contrast media that he received rule out thromboembolic disease when the patient became extremely short of breath and diaphoretic. At that time he was transferred to the ICU. Objective - Vital Signs Vital signs: Vital Signs Temp 98.3 F 09/24/19 08:00 Pulse 90 09/24/19 12:43 Resp 15 09/24/19 12:01 BP 122/84 09/24/19 11:00 Pulse Ox 94 L 09/24/19 12:01 Intake & Output 09/23/19 09/24/19 09/24/19 18:59 06:59 18:59 Intake Total 1989 1910 1432.6 Output Total 350 500 250 Balance 1640 1410 1182.6 Weight 129.274 kg Intake: IV 0 1375 800 Sodium Chloride 0.9% 1, 1375 800 000 ml @ 150 mls/hr IV . Q6H40M BERRY Rx#:[id number] Intake, IV Titration 1625 135 32.6 Amount Ropivacaine 250 mg 10 32.6 fentaNYL (PF) 1,250 mcg In Sodium Chloride 0.9% 175 ml @ Per Protocol EPIDURAL .Q0M PRN Rx#: [id number] Sodium Chloride 0.9% 1, 1625 125 000 ml @ 150 mls/hr IV . Q6H40M BERRY Rx#:[id number] Oral 365 400 600 Output: Urine 350 500 250 Other: Voiding Method Urinal Urinal Urinal - Exam Physical Exam: Revealed a 53-year-old white male in no distress. On few liters nasal cannula Head: Atraumatic normocephalic. HEENT:[Neck is supple.] [No neck masses.] [No thyromegaly.] [No JVD.] PERRLA, EOMI, mild body less 4. Chest: [Palpable subcutaneous emphysema noted on the left side of the chest, tenderness on palpation, diminished breath sounds at the bases especially at the left base. Cardiac Exam: [Normal S1 and S2, no S3 gallop, no murmur.] Abdomen: Obese [Soft, nontender, no megaly, no rebound, no guarding, normal bowel sounds.] Extremities: [No clubbing, no edema, no cyanosis.] Neurological Exam: [No focal neurologic deficit.] Alert oriented 3. Psychiatric: Normal mood, affect and normal mental status examination. Skin: No rashes. - Labs CBC & Chem 7: 09/24/19 04:50 09/24/19 04:50 Labs: Abnormal Lab Results - Last 24 Hours (Table) 09/23/19 09/24/19 09/24/19 Range/Units 13:25 04:50 04:50 WBC 17.9 H (3.8-10.6) k/uL RBC 4.02 L (4.30-5.90) m/uL Hgb 12.3 L (13.0-17.5) gm/dL Hct 36.4 L (39.0-53.0) % Neutrophils # 15.5 H (1.3-7.7) k/uL Lymphocytes # 0.7 L (1.0-4.8) k/uL Monocytes # 1.2 H (0-1.0) k/uL Sodium 130 L (137-145) mmol/L BUN 69 H (9-20) mg/dL Creatinine 2.70 H (0.66-1.25) mg/dL Glucose 111 H (74-99) mg/dL Calcium 7.5 L (8.4-10.2) mg/dL Ur Specific [place] >1.050 H (1.001-1.035) Urine Protein Trace H (Negative) Ur Leukocyte Esterase Trace H (Negative) Urine WBC 7 H (0-5) /hpf Urine Bacteria Rare H (None) /hpf Urine Mucus Few H (None) /hpf Assessment and Plan Assessment: Impression: Multiple left-sided rib fractures Small left-sided pneumothorax, not seen on chest x-ray Significant left sided subcutaneous emphysema secondary to pneumothorax, improving. Severe pain secondary to multiple rib fractures, better controlled with epidural History of hypertension History of depression. Acute kidney injury secondary most likely to contrast media. Recommendation: Continue oxygen Continue incentive spirometry Health Policy Manager nephrology for his acute kidney injury Ambulate as much as possible Transfer patient out of the ICU to a regular medical floor Continue bronchodilators. We'll continue to follow. Time with Patient: Less than 30
--- NOTE | 2019-09-24 13:38 | P.PN ---
Subjective Progress Note Date: 09/24/19 CHIEF COMPLAINT: pain HISTORY OF PRESENT ILLNESS: Patient examined at the bedside with Dr. Borrero. Patient had epidural placed yesterday. His pain is much better controlled today. Reports he is breathing easier today as well. He is on nasal cannula. Using incentive spirometer. PHYSICAL EXAM: VITAL SIGNS: Reviewed. GENERAL: Well-developed in no acute distress. RESP: Respirations equal. Subcutaneous emphysema present on the left side of chest. HEENT: No sclera icterus. Extraocular movements grossly intact. Moist buccal mucosa. Head is atraumatic, normocephalic. ABDOMEN: Soft. Nondistended. Nontender. NEUROLOGIC: Alert and oriented. Cranial nerves II through XII grossly intact. ASSESSMENT: 1. Recent fall from standing 2. Left sided rib fractures 3. Subcutaneous emphysema PLAN: -Pulmonary, Dr. Lim, following -Incentive spirometer 10 times an hour -Activity as tolerated -Continue epidural -Medical management per Dr. Contreras Nurse practitioner note has been reviewed by physician. Signing provider agrees with the documented findings, assessment, and plan of care. Objective - Vital Signs Vital signs: Vital Signs Temp 98.3 F 09/24/19 08:00 Pulse 100 09/24/19 12:54 Resp 15 09/24/19 12:01 BP 122/84 09/24/19 11:00 Pulse Ox 94 L 09/24/19 12:01 Intake & Output 09/23/19 09/24/19 09/24/19 18:59 06:59 18:59 Intake Total 19890 1432.6 Output Total 350 500 250 Balance 1640 1410 1182.6 Weight 129.274 kg Intake: IV 0 1375 800 Sodium Chloride 0.9% 1, 1375 800 000 ml @ 150 mls/hr IV . Q6H40M BERRY Rx#:[id number] Intake, IV Titration 1625 135 32.6 Amount Ropivacaine 250 mg 10 32.6 fentaNYL (PF) 1,250 mcg In Sodium Chloride 0.9% 175 ml @ Per Protocol EPIDURAL .Q0M PRN Rx#: [id number] Sodium Chloride 0.9% 1, 1625 125 000 ml @ 150 mls/hr IV . Q6H40M BERRY Rx#:[id number] Oral 365 400 600 Output: Urine 350 500 250 Other: Voiding Method Urinal Urinal Urinal - Labs CBC & Chem 7: 09/24/19 04:50 09/24/19 04:50 Labs: Abnormal Lab Results - Last 24 Hours (Table) 09/23/19 09/24/19 09/24/19 Range/Units 13:25 04:50 04:50 WBC 17.9 H (3.8-10.6) k/uL RBC 4.02 L (4.30-5.90) m/uL Hgb 12.3 L (13.0-17.5) gm/dL Hct 36.4 L (39.0-53.0) % Neutrophils # 15.5 H (1.3-7.7) k/uL Lymphocytes # 0.7 L (1.0-4.8) k/uL Monocytes # 1.2 H (0-1.0) k/uL Sodium 130 L (137-145) mmol/L BUN 69 H (9-20) mg/dL Creatinine 2.70 H (0.66-1.25) mg/dL Glucose 111 H (74-99) mg/dL Calcium 7.5 L (8.4-10.2) mg/dL Ur Specific [place] >1.050 H (1.001-1.035) Urine Protein Trace H (Negative) Ur Leukocyte Esterase Trace H (Negative) Urine WBC 7 H (0-5) /hpf Urine Bacteria Rare H (None) /hpf Urine Mucus Few H (None) /hpf
[2019-09-24] MEDS ORDERED: HYDROcodone/APAP 7.5-325MG 1 EACH TAB PO ONE (13:40)
[2019-09-24] MEDS: DEPLIN PO SCH (18:30)
--- NOTE | 2019-09-24 20:43 | P.PN ---
Progress Note - Text Progress Note Date: 09/24/19 - Chief Complaint rib fractures Interval history: This is a pleasant [address] Joseph Angel. Chronic stable medical conditions include hypertension, anxiety, depression, bladder outflow obstruction for which patient takes Flomax. Patient slipped on ice 2 days ago and suffered a fall following on his left chest wall. Patient went to [facility]. He was managed conservatively. Patient continued to feel short of breath. And of course uncontrolled pain. He presented down here. Admitted to the trauma service of Dr. Borrero. Patient is using the IS. No fever no chills. Did not pass out. Significant pain present. Patient is requiring BiPAP earlier because of shortness of breath. Today-ICU. Breathing a bit better. Still left chest wall pain present. Oral intake improvement. Has not had a bowel movement for 3-4 days. No nausea vomiting. Awake. at the bedside. Review of systems: Was done for constitutional, cardiovascular, GI, pulmonary. relevant finding as above Active Medications Hydrocodone Bitart/Acetaminophen ([place] 10) 1 each PO Q4H PRN PRN Reason: Pain Last Admin: 09/23/19 09:56 Dose: 1 each Documented by: Albuterol/Ipratropium (Duoneb 0.5 Mg-3 Mg/3 Ml Soln) 3 ml INHALATION RT-QID [facility] Last Admin: 09/24/19 18:58 Dose: 3 ml Documented by: Albuterol/Ipratropium (Duoneb 0.5 Mg-3 Mg/3 Ml Soln) 3 ml INHALATION RT-Q2H PRN PRN Reason: Shortness Of Breath Or Wheezing Alprazolam (Xanax) 0.25 mg PO BID PRN PRN Reason: Anxiety Amitriptyline HCl (Elavil) 25 mg PO HS [facility] Last Admin: 09/23/19 21:34 Dose: 25 mg Documented by: Bupropion HCl (Wellbutrin Xl) 300 mg PO DAILY [facility] Last Admin: 09/24/19 08:34 Dose: 300 mg Documented by: Buspirone HCl (Buspar) 15 mg PO [facility] Last Admin: 09/23/19 21:34 Dose: 15 mg Documented by: Hydromorphone HCl (Dilaudid) 1 mg IVP Q2HR PRN PRN Reason: Breakthrough Pain Last Admin: 09/23/19 14:23 Dose: 1 mg Documented by: Sodium Chloride (Saline 0.9%) 1,000 mls @ 150 mls/hr IV .Q6H40M [facility] Last Admin: 09/24/19 18:31 Dose: 150 mls/hr Documented by: Ropivacaine 250 mg/ Fentanyl Citrate 1,250 mcg/ Sodium Chloride 250 mls @ 0 mls/hr EPIDURAL .Q0M PRN; Protocol PRN Reason: Pain Control Last Infusion: 09/24/19 08:31 Dose: 4 mls/hr Documented by: Lidocaine (Lidoderm) 1 patch TOPICAL DAILY [facility] Last Admin: 09/24/19 08:35 Dose: 1 patch Documented by: Lisinopril (Zestril) 20 mg PO DAILY [facility] Last Admin: 09/24/19 08:35 Dose: 20 mg Documented by: Miscellaneous Information (Rx Info: Iv Contrast Was Given) 1 each MISCELLANE DAILY PRN PRN Reason: Per Protocol Stop: 09/25/19 02:36 Naloxone HCl (Narcan) 0.2 mg IV Q2M PRN PRN Reason: Opioid Reversal Patient's Own Med ( Deplin 15/90.3/4 1 Tab) 1 tab PO DAILY@1700 [facility] Last Admin: 09/24/19 18:30 Dose: Not Given Documented by: Fluoxetine (Prozac) (20 Mg) 1 each PO DAILY [facility] Last Admin: 09/24/19 08:36 Dose: 1 each Documented by: Ondansetron HCl (Zofran) 4 mg PO Q8H PRN PRN Reason: Nausea Pantoprazole Sodium (Protonix) 40 mg PO AC-BID [facility] Last Admin: 09/24/19 18:31 Dose: 40 mg Documented by: Tamsulosin HCl (Flomax) 0.4 mg PO HS [facility] Last Admin: 09/23/19 21:34 Dose: 0.4 mg Documented by: Physical examination: VITAL SIGNS: Pulse 100, 15, 122/84, 94% on nasal cannula GENERAL: BMI 36.6, laying in bed, tired EYES: Pupils equal. Conjunctiva normal. HEENT: External appearance of nose and ears normal, oral cavity grossly normal. NECK: JVD not raised; masses not palpable. HEART: First and second heart sounds are normal; no edema. LUNGS: Respiratory rate increased, diminished breath sounds on the left side. ABDOMEN: Soft, nontender, liver spleen not palpable, no masses palpable. PSYCH: Alert and oriented x3; mood and affect anxiousl. CHEST full: Tenderness of the left chest wall INVESTIGATIONS, reviewed in the clinical context: White count 17.9 hemoglobin 12.3 potassium 4.1 bun 69 creatine 2.70 UA-trace protein White count 22.3 hemoglobin 14.8 potassium 4.6. 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 -Obesity BMI 36.6 -Acute renal failure, worsening. Plan: Await creatinine kinase. Getting IV fluids. We'll stop the Zestril. Getting nephrology opinion. Renal ultrasound. Patient denies taking any NSAIDs. Repeat labs in the morning. Care was discussed with the patient and at the bedside.
[2019-09-24] MEDS: busPIRone HCl 5 MG TAB PO SCH (21:15)
[2019-09-24] MEDS: AMITRIPTYLINE HCL 25 MG TAB PO SCH (21:15)
[2019-09-24] MEDS: TAMSULOSIN 0.4 MG CAP.ER.24H PO SCH (21:17)
[2019-09-24] MEDS: HYDROcodone/APAP 10-325MG 1 EACH TAB PO PRN (21:59)
--- NOTE | 2019-09-24 22:22 | US ---
EXAMINATION TYPE: US kidneys/renal and bladder DATE OF EXAM: 09/24/2019 COMPARISON: US 09/23/2019 CLINICAL HISTORY: Acute kidney injury. Acute kidney injury. EXAM MEASUREMENTS: Right Kidney: 12.5 x 6.9 x 7.3 cm Left Kidney: Not visualized due to overlying bowel gas. Very limited exam. Right Kidney: No hydronephrosis or masses seen Left Kidney: Not visualized Bladder: Possible internal echoes seen posteriorly vs. artifact. Bilateral Jets seen: No IMPRESSION: Left kidney is not visualized. Right kidney shows no hydronephrosis. Large urinary bladde r. No definite bladder stone or mass. No adverse change.
[2019-09-24] MEDS: NORTRIPTYLINE 50 MG PO SCH ×2 (22:36→22:37)
[2019-09-24] MEDS: IPRATROPIUM-ALBUTEROL 3 ML NEB INHALATION PRN (23:52)
[2019-09-25] MEDS: IPRATROPIUM-ALBUTEROL 3 ML NEB INHALATION PRN (03:09)
--- NOTE | 2019-09-25 06:28 | P.PN ---
Progress Note - Text Progress Note Date: 09/25/19 53-year-old male with multiple rib fracture status post thoracic epidural placement catheter day #3. Patient doing well also been comfortably. Rates currently at 8 ML's an hour. VAS is 0 out of 10 in severity. No motor sensory deficits. No back pain or discomfort. Epidural catheter can stay in place for 1 more day, and removed on 09/26. Be cautious of removal if anticoagulation is being given.
[2019-09-25] MEDS: PANTOPRAZOLE 40 MG TABLET PO SCH ×2 (07:26→16:57)
[2019-09-25] MEDS: LIDOCAINE 5% PATCH TOPICAL SCH (07:27)
[2019-09-25] MEDS: buPROPion XL 300 MG TAB.ER.24H PO SCH (07:27)
[2019-09-25] MEDS: SODIUM CHLORIDE 0.9% 1,000 ML IV SCH ×2 (07:28→13:23)
[2019-09-25] MEDS: FLUOXETINE 20 MG PO SCH (07:29)
[2019-09-25 08:14] LABS: Basophils # (A) 0.1 k/uL (0-0.2); Basophils % (A) 1 %; Eosinophils # (A) 0.2 k/uL (0-0.7); Eosinophils % (A) 1 %; HCT 35.3 % (39.0-53.0); Lymphocytes # (A) 0.5 k/uL (1.0-4.8); Lymphocytes % (A) 4 %; MCH 30.9 pg (25.0-35.0); MCV 90.9 fL (80.0-100.0); Monocytes # (A) 1.3 k/uL (0-1.0); Monocytes % (A) 11 %; Neutrophils # (A) 10.4 k/uL (1.3-7.7); Neutrophils % (A) 82 %; Platelet Count 176 k/uL (150-450); RBC 3.89 m/uL (4.30-5.90); RDW 13.3 % (11.5-15.5); WBC 12.7 k/uL (3.8-10.6)
[2019-09-25] MEDS: IPRATROPIUM-ALBUTEROL 3 ML NEB INHALATION SCH ×4 (08:27→21:42)
[2019-09-25 08:42] LABS: Calcium 7.4 mg/dL (8.4-10.2); Potassium 4.6 mmol/L (3.5-5.1)
--- NOTE | 2019-09-25 09:19 | XR ---
EXAMINATION TYPE: XR chest 1V portable DATE OF EXAM: 09/25/2019 COMPARISON: 09/24/2019 INDICATION: Pneumothorax TECHNIQUE: Single frontal view of the chest is obtained. FINDINGS: The heart size is upper limits of normal. The pulmonary vasculature is normal. Some mild infiltrate is at the left base. Correlate for subsegmental atelectasis. IMPRESSION: 1. No pneumothorax evident on the current exam. 2. Subsegmental atelectasis at the left base
--- NOTE | 2019-09-25 10:48 | P.PN ---
Subjective Progress Note Date: 09/25/19 CHIEF COMPLAINT: pain HISTORY OF PRESENT ILLNESS: Patient examined at the bedside. Patient reports shortness of breath is improving. He is currently on 7 L nasal cannula. Oxygen saturations greater than 92%. Patient reports his pain is controlled with epidural. Using IS 10 times an hour. PHYSICAL EXAM: VITAL SIGNS: Reviewed. GENERAL: Well-developed in no acute distress. RESP: Respirations equal. Subcutaneous emphysema present on the left side of chest. HEENT: No sclera icterus. Extraocular movements grossly intact. Moist buccal mucosa. Head is atraumatic, normocephalic. ABDOMEN: Soft. Nondistended. Nontender. NEUROLOGIC: Alert and oriented. Cranial nerves II through XII grossly intact. ASSESSMENT: 1. Recent fall from standing 2. Left sided rib fractures 3. Subcutaneous emphysema PLAN: -Pulmonary, Dr. Lim, following -Incentive spirometer 10 times an hour -Activity as tolerated -Continue epidural. Likely will DC epidural tomorrow -Medical management per Dr. Contreras Nurse practitioner note has been reviewed by physician. Signing provider agrees with the documented findings, assessment, and plan of care. Objective - Vital Signs Vital signs: Vital Signs Temp 97.6 F 09/25/19 05:07 Pulse 100 09/25/19 08:39 Resp 19 09/25/19 08:00 BP 121/77 09/25/19 05:07 Pulse Ox 95 09/25/19 05:07 Intake & Output 09/24/19 09/25/19 09/25/19 18:59 06:59 18:59 Intake Total 1972.6 753.867 Output Total 650 350 0 Balance 1322.6 403.867 0 Intake: IV 1100 300 Sodium Chloride 0.9% 1, 1100 300 000 ml @ 150 mls/hr IV . Q6H40M [facility] Rx#:[id number] Intake, IV Titration 32.6 53.867 Amount Ropivacaine 250 mg 32.6 53.867 fentaNYL (PF) 1,250 mcg In Sodium Chloride 0.9% 175 ml @ Per Protocol EPIDURAL .Q0M PRN Rx#: [id number] Oral 840 400 Output: Urine 650 350 Post Void Residual 0 Other: Voiding Method Urinal Urinal # Voids 1 1 - Labs CBC & Chem 7: 09/25/19 07:12 09/25/19 07:12 Labs: Abnormal Lab Results - Last 24 Hours (Table) 09/24/19 09/25/19 09/25/19 Range/Units 04:50 07:12 07:12 WBC 12.7 H (3.8-10.6) k/uL RBC 3.89 L (4.30-5.90) m/uL Hgb 12.0 L (13.0-17.5) gm/dL Hct 35.3 L (39.0-53.0) % Neutrophils # 10.4 H (1.3-7.7) k/uL Lymphocytes # 0.5 L (1.0-4.8) k/uL Monocytes # 1.3 H (0-1.0) k/uL Sodium 129 L (137-145) mmol/L Carbon Dioxide 19 L (22-30) mmol/L BUN 92 H (9-20) mg/dL Creatinine 3.01 H (0.66-1.25) mg/dL Calcium 7.4 L (8.4-10.2) mg/dL Creatine Kinase 820 H (55-170) U/L
[2019-09-25] MEDS: ROPIVACAINE 250 MG, fentaNYL (PF) 1,250 MCG in SODIUM CHLORIDE 0.9% 175 ML EPIDURAL PRN (11:49)
--- NOTE | 2019-09-25 12:16 | P.PN ---
Subjective Progress Note Date: 09/25/19 Principal diagnosis: Multiple rib fractures secondary to fall, subcutaneous emphysema, suspect pulmonary contusion This is a 53-year-old white male with history of hypertension, depression, patient fell on ice on Saturday, 3 days ago. He landed on his left side and left shoulder. Patient developed significant pain and crepitation in the left sided chest wall area and neck area. Patient was seen at [facility], and he was diagnosed as having multiple left-sided rib fractures. Workup for acute head injury was negative. Patient was placed on mostly pain medications and sent home from the ER. However his shortness of breath has become more pronounced, and has been developing more left-sided chest pain. Presented to the ER here yesterday, and he was noted to have significant subcutaneous emphysema, multiple left-sided rib fractures, patient was admitted, and based on the initial chest x-ray, there was no evidence of pneumothorax. Patient was admitted, however late last night, the patient developed more shortness of breath, and he was developing more diaphoresis. Transferred to the ICU with worsening shortness of breath, and patient was noted to be diaphoretic. CT angiogram of the chest showed no evidence of pulmonary embolism, however there was evidence of significant subcutaneous emphysema, atelectasis, multiple rib fractures 2 through 7, some displacement of rib #6 and rib #7. There was also evidence of small left-sided pneumothorax. Not appreciated on the chest x-ray, but could be seen on the CT of the chest, extremely small and minimal. Patient was admitted to the ICU, and I was asked to see him on consultation. After reviewing his chest x-ray, CT of the chest, and after evaluating the patient, I recommended cardiothoracic surgery to evaluate the patient, and the option would be either conservatively measures or possibly place a left sided chest tube since his subcutaneous emphysema seems to be getting worse, and he clearly has a small tiny left-sided pneumothorax. In the meantime I have recommended anesthesia to see the patient, and the patient will be going down for an epidural catheter placement for pain control. During my evaluation, patient was noted to have extremely shallow breathing, and I recommended placing the patient on BiPAP with IPAP of 14 and EPAP of 4. That seemed to help him significantly, and he was no eugene to breathe much easier while on BiPAP. I also recommended an echocardiogram to rule out any possibility of cardiac contusion, troponin was also ordered. EKG showed no evidence of acute ischemic changes Patient was reevaluated today on 09/24/2019, remains in the ICU, feeling much better, remains on epidural for pain control. Patient seems to be breathing easier, compliant with his incentive spirometer. Chest x-ray is reassuring. No evidence of pneumothorax on the chest x-ray, and the subcutaneous emphysema seems to be less. However his kidney functioning seems to be a bit worse, patie nt developed acute kidney injury most likely related to the contrast media that he received rule out thromboembolic disease when the patient became extremely short of breath and diaphoretic. At that time he was transferred to the ICU. The patient is seen today 09/25/2019 in follow-up on the regular medical floor. He is awake and alert in no acute distress. His pain is better controlled with an epidural pain medications. Anesthesia is following. Lidoderm patch in place. He is less short of breath today compared to yesterday. Still with some wheezing. Receiving DuoNeb inhalations. Still on 7 L high flow nasal cannula. Currently off the BiPAP. O2 saturation 95%. Working well with the incentive spirometer. He is afebrile. White count 12.7. Hemoglobin 12.0. Sodium 129. Creatinine 3.01. Objective - Vital Signs Vital signs: Vital Signs Temp 97.6 F 09/25/19 05:07 Pulse 100 09/25/19 08:39 Resp 19 09/25/19 08:00 BP 121/77 09/25/19 05:07 Pulse Ox 95 09/25/19 05:07 Intake & Output 09/24/19 09/25/19 09/25/19 18:59 06:59 18:59 Intake Total 1972.6 753.867 110.667 Output Total 650 350 0 Balance 1322.6 403.867 110.667 Intake: IV 1100 300 Sodium Chloride 0.9% 1, 1100 300 000 ml @ 150 mls/hr IV . Q6H40M [facility] Rx#:[id number] Intake, IV Titration 32.6 53.867 110.667 Amount Ropivacaine 250 mg 32.6 53.867 110.667 fentaNYL (PF) 1,250 mcg In Sodium Chloride 0.9% 175 ml @ Per Protocol EPIDURAL .Q0M PRN Rx#: [id number] Oral 840 400 Output: Urine 650 350 Post Void Residual 0 Other: Voiding Method Urinal Urinal # Voids 1 1 2 - Exam GENERAL EXAM: Alert, pleasant 53-year-old gentleman, on 7 L high flow nasal cannula, more comfortable in no apparent distress. HEAD: Normocephalic. EYES: Normal reaction of pupils, equal size. NOSE: Clear with pink turbinates. THROAT: No erythema or exudates. NECK: No masses, no JVD. CHEST: No chest wall deformity. LUNGS: Equal air entry with bilateral end expiratory wheeze, crackles in left base, diminished. CVS: S1 and S2 normal with no audible murmur, regular rhythm. ABDOMEN: No hepatosplenomegaly, normal bowel sounds, no guarding or rigidity. SPINE: No scoliosis or deformity SKIN: Subcutaneous emphysema in the left shoulder area No rashes CENTRAL NERVOUS SYSTEM: No focal deficits, tone is normal in all 4 extremities. EXTREMITIES: There is no peripheral edema. No clubbing, no cyanosis. Peripheral pulses are intact. - Labs CBC & Chem 7: 09/25/19 07:12 09/25/19 07:12 Labs: Abnormal Lab Results - Last 24 Hours (Table) 09/24/19 09/25/19 09/25/19 Range/Units 04:50 07:12 07:12 WBC 12.7 H (3.8-10.6) k/uL RBC 3.89 L (4.30-5.90) m/uL Hgb 12.0 L (13.0-17.5) gm/dL Hct 35.3 L (39.0-53.0) % Neutrophils # 10.4 H (1.3-7.7) k/uL Lymphocytes # 0.5 L (1.0-4.8) k/uL Monocytes # 1.3 H (0-1.0) k/uL Sodium 129 L (137-145) mmol/L Carbon Dioxide 19 L (22-30) mmol/L BUN 92 H (9-20) mg/dL Creatinine 3.01 H (0.66-1.25) mg/dL Calcium 7.4 L (8.4-10.2) mg/dL Creatine Kinase 820 H (55-170) U/L Assessment and Plan Assessment: Multiple left-sided rib fractures secondary to previous fall Small left-sided pneumothorax, not seen on chest x-ray today. Subsegmental atelectasis in left lung base him a suspect contusion Significant left sided subcutaneous emphysema secondary to pneumothorax, improving Severe pain secondary to multiple rib fractures, better controlled with epidural History of hypertension History of depression Acute kidney injury secondary most likely to contrast media, 0.9 normal saline at 60 ML's per hour Plan: The patient was seen and evaluated by Dr. Lim, chest x-ray and labs reviewed. Continue to work with the incentive spirometer and cough and deep breathing exercises Titrate down the FiO2 as tolerated Increase his activity as tolerated Holding off on steroids to allow healing, continue bronchodilators We will continue to follow I, the cosigning physician, performed a history & physical examination of the patient. Lungs sounds with bilateral end expiratory wheeze, crackles in left base Maintaining good O2 saturations in the 90s on 7 L high flow nasal cannula. I discussed the assessment and plan of care with my nurse practitioner, Nasrin Bui. I attest to the above note as dictated by her.
--- NOTE | 2019-09-25 12:17 | CONS ---
CONSULTATION REASON FOR CONSULT: Renal failure. HISTORY OF PRESENT ILLNESS: Patient is a 53-year-old male who was initially admitted to the hospital on 09/22/2019 with a history of fall as he had slipped on ice. He sustained 5 fractured ribs. The patient had a chest CTA on 09/23/2019. His serum creatinine has been progressively increasing. It was noted to be 1.4 on 09/23 and is up to 3.01 today. No prior labs available. Patient denies any history of kidney diseases. He is currently maintained on BiPAP. The patient has been voiding on his own. A postvoid residual was checked today which was zero. Blood pressures have been on the lower side with systolic 95 to 99 mmHg on 09/23 and 09/24 and as low as 77/46 on 09/23/2019. In terms of other medications, I do see that patient was on lisinopril which was discontinued yesterday. Patient was also on Toradol on initial admission, which is now discontinued. Ultrasound of the kidneys yesterday does not show any evidence of hydronephrosis. PAST MEDICAL HISTORY: Hypertension. PAST SURGICAL HISTORY: Tonsillectomy. SOCIAL HISTORY: Negative for smoking, drug abuse or alcohol abuse. MEDICATIONS: Medications prior to admission included Vasotec, Elavil, Xanax, fluoxetine, Pamelor, omeprazole, Zofran, Flomax, Wellbutrin, buspirone. ALLERGIES: Allergies include SULFA which causes rash and hives. PHYSICAL EXAMINATION: On examination, patient is currently comfortable, awake. He is currently on BiPAP. Blood pressure this morning was 121/77, heart rate 102 per minute. Patient is afebrile. EXAMINATION OF THE HEART: S1, S2. EXAMINATION OF THE LUNGS: Decreased breath sounds at the bases. ABDOMEN: Soft, obese. Examination of lower extremities shows no evidence of edema. DRAWING BOX TENDER EXAM: Grossly intact. Patient moving all 4 extremities. LABS: Labs show sodium 129, potassium 4.6, CO2 is 19, BUN 92, creatinine 3.01. UA shows trace leukocyte esterase, WBCs 7, RBCs 3, and protein is trace. Hemoglobin 12.0. ASSESSMENT: 1. Acute kidney injury secondary to hypotension hypoperfusion in the setting of use of BETH inhibitors. The patient also received IV contrast for CTA 2 days ago and he was also on Toradol on initial admission, which is now discontinued. Continue to maintain patient off of lisinopril. I will hold off on IV hydration as he is mildly hypervolemic. We need to rule out urine retention, although there is no evidence of hydronephrosis on the ultrasound. No nephrotoxic agents on board. We will repeat his labs in a.m. 2. Multiple left-sided rib fractures with a small left-sided pneumothorax and subcutaneous emphysema. 3. History of hypertension, blood pressure currently on the lower side. 4. History of depression. 5. Hyponatremia, appears to be hypervolemic. Decrease normal saline. Patient may need IV Lasix. 6. Mild rhabdomyolysis, status post fall. CK was 820 yesterday. PLAN: Repeat postvoid residual check. Decrease IV fluids. Continue off of BETH inhibitors. Thank you for this consultation. We will continue to follow the patient with you during his hospitalization. ABISAI / GIOVANNIN: [id number] /
[2019-09-25] MEDS ORDERED: DOCUSATE 100 MG CAP PO STA (14:10)
[2019-09-25] MEDS: DEPLIN PO SCH (17:07)
[2019-09-25] MEDS: busPIRone HCl 5 MG TAB PO SCH (21:00)
[2019-09-25] MEDS: TAMSULOSIN 0.4 MG CAP.ER.24H PO SCH (21:01)
[2019-09-25] MEDS: AMITRIPTYLINE HCL 25 MG TAB PO SCH (21:01)
--- NOTE | 2019-09-25 23:30 | P.PN ---
Progress Note - Text Progress Note Date: 09/25/19 - Chief Complaint rib fractures Interval history: This is a pleasant [address] Joseph Angel. Chronic stable medical conditions include hypertension, anxiety, depression, bladder outflow obstruction for which patient takes Flomax. Patient slipped on ice 2 days ago and suffered a fall following on his left chest wall. Patient went to [facility]. He was managed conservatively. Patient continued to feel short of breath. And of course uncontrolled pain. He presented down here. Admitted to the trauma service of Dr. Borrero. Patient is using the IS. No fever no chills. Did not pass out. Significant pain present. Patient is requiring BiPAP earlier . Suspected of left-sided atelectasis and some lung contusion. Today-was moved out of the ICU. Breathing better. Oral intake better. Pain is better controlled. is present. Review of systems: Was done for constitutional, cardiovascular, GI, pulmonary. relevant finding as above Active Medications Hydrocodone Bitart/Acetaminophen ([place] 10) 1 each PO Q4H PRN PRN Reason: Pain Last Admin: 09/24/19 21:59 Dose: 1 each Documented by: Albuterol/Ipratropium (Duoneb 0.5 Mg-3 Mg/3 Ml Soln) 3 ml INHALATION RT-QID [facility] Last Admin: 09/25/19 21:42 Dose: 3 ml Documented by: Albuterol/Ipratropium (Duoneb 0.5 Mg-3 Mg/3 Ml Soln) 3 ml INHALATION RT-Q2H PRN PRN Reason: Shortness Of Breath Or Wheezing Last Admin: 09/25/19 03:09 Dose: 3 ml Documented by: Alprazolam (Xanax) 0.25 mg PO BID PRN PRN Reason: Anxiety Amitriptyline HCl (Elavil) 25 mg PO HS [facility] Last Admin: 09/25/19 21:01 Dose: 25 mg Documented by: Bupropion HCl (Wellbutrin Xl) 300 mg PO DAILY [facility] Last Admin: 09/25/19 07:27 Dose: 300 mg Documented by: Buspirone HCl (Buspar) 15 mg PO [facility] Last Admin: 09/25/19 21:00 Dose: 15 mg Documented by: Hydromorphone HCl (Dilaudid) 1 mg IVP Q2HR PRN PRN Reason: Breakthrough Pain Last Admin: 09/23/19 14:23 Dose: 1 mg Documented by: Sodium Chloride (Saline 0.9%) 1,000 mls @ 60 mls/hr IV .[id number] [facility] Last Admin: 09/25/19 13:23 Dose: 60 mls/hr Documented by: Ropivacaine 250 mg/ Fentanyl Citrate 1,250 mcg/ Sodium Chloride 250 mls @ 0 mls/hr EPIDURAL .Q0M PRN; Protocol PRN Reason: Pain Control Last Admin: 09/25/19 11:49 Dose: 8 mls/hr Documented by: Lidocaine (Lidoderm) 1 patch TOPICAL DAILY [facility] Last Admin: 09/25/19 07:27 Dose: 1 patch Documented by: Naloxone HCl (Narcan) 0.2 mg IV Q2M PRN PRN Reason: Opioid Reversal Patient's Own Med ( [place] 15/90.3/4 1 Tab) 1 tab PO DAILY@1700 [facility] Last Admin: 09/25/19 17:07 Dose: Not Given Documented by: Fluoxetine (Prozac) (20 Mg) 1 each PO DAILY [facility] Last Admin: 09/25/19 07:29 Dose: 1 each Documented by: Ondansetron HCl (Zofran) 4 mg PO Q8H PRN PRN Reason: Nausea Pantoprazole Sodium (Protonix) 40 mg PO AC-BID [facility] Last Admin: 09/25/19 16:57 Dose: 40 mg Documented by: Tamsulosin HCl (Flomax) 0.4 mg PO HS [facility] Last Admin: 09/25/19 21:01 Dose: 0.4 mg Documented by: Physical examination: VITAL SIGNS: 98.7, 95, 22, 94/65, 94% on 7 L GENERAL: Laying in bed, awake EYES: Pupils equal. Conjunctiva normal. HEENT: External appearance of nose and ears normal, oral cavity grossly normal. NECK: JVD not raised; masses not palpable. HEART: First and second heart sounds are normal; no edema. LUNGS: Respiratory rate increased, diminished breath sounds on the left side. ABDOMEN: Soft, nontender, liver spleen not palpable, no masses palpable. PSYCH: Alert and oriented x3; mood and affect anxiousl. CHEST full: Tenderness of the left chest wall INVESTIGATIONS, reviewed in the clinical context: White count 12.7 hemoglobin 12 progression 4.6 bun 92 creatinine 3.01 Previous testing UA-trace protein White count 22.3 hemoglobin 14.8 potassium 4.6. 43 creatinine 1.40 No recent labs to compare the renal function to Assessment: -Left chest wall 5 ribs fracture secondary to fall, mechanical by slipping on ice -Acute hypoxic respiratory failure secondary to splinting of the chest or rib fractures requiring BiPAP -Left-sided atelectasis and possibly lung contusion suspected -Essential hypertension -Anxiety depression not otherwise specified -Bladder outflow obstructive which patient uses Flomax. -Obesity BMI 36.6 -Acute renal failure, possibly from contrast nephropathy worsening. Plan: Continue current medication treatment plan. Seen by nephrology. IV fluids will be stopped felt to be mildly hyper or drink. Keep BETH inhibitor resolved. Care discussed with the patient and . Follow
--- NOTE | 2019-09-26 06:37 | XR ---
EXAMINATION TYPE: XR chest 1V portable DATE OF EXAM: 09/26/2019 HISTORY: pnuemothorax. REFERENCE: Previous study dated 09/25/2019. FINDINGS: The study is rotated. This gives increased opacity of the left side of the chest. Heart size upper limits of normal. There is atelectasis in the left midlung, unchanged from previous. There is developing left basilar airspace disease. I could not exclude a small left effusion. IMPRESSION: WORSENING LEFT BASILAR AIRSPACE DISEASE.
[2019-09-26 07:48] LABS: Basophils % (A) 0 %; Eosinophils # (A) 0.2 k/uL (0-0.7); Eosinophils % (A) 2 %; HCT 35.5 % (39.0-53.0); Lymphocytes # (A) 0.5 k/uL (1.0-4.8); Lymphocytes % (A) 5 %; MCH 30.7 pg (25.0-35.0); MCHC 33.8 g/dL (31.0-37.0); Mean Platelet Volume 7.7; Monocytes # (A) 0.9 k/uL (0-1.0); Monocytes % (A) 9 %; Neutrophils # (A) 7.4 k/uL (1.3-7.7); Neutrophils % (A) 81 %; Platelet Count 191 k/uL (150-450); RDW 13.2 % (11.5-15.5); WBC 9.1 k/uL (3.8-10.6)
[2019-09-26] MEDS: LIDOCAINE 5% PATCH TOPICAL SCH (08:01)
[2019-09-26] MEDS: buPROPion XL 300 MG TAB.ER.24H PO SCH (08:02)
[2019-09-26] MEDS: FLUOXETINE 20 MG PO SCH (08:02)
[2019-09-26] MEDS: PANTOPRAZOLE 40 MG TABLET PO SCH ×2 (08:02→17:54)
[2019-09-26] MEDS: SODIUM CHLORIDE 0.9% 1,000 ML IV SCH (08:22)
[2019-09-26] MEDS: IPRATROPIUM-ALBUTEROL 3 ML NEB INHALATION SCH ×4 (08:27→19:53)
--- NOTE | 2019-09-26 11:00 | P.PN ---
Subjective Progress Note Date: 09/26/19 Principal diagnosis: Multiple rib fractures secondary to fall, subcutaneous emphysema, suspect pulmonary contusion This is a 53-year-old white male with history of hypertension, depression, patient fell on ice on Saturday, 3 days ago. He landed on his left side and left shoulder. Patient developed significant pain and crepitation in the left sided chest wall area and neck area. Patient was seen at [facility], and he was diagnosed as having multiple left-sided rib fractures. Workup for acute head injury was negative. Patient was placed on mostly pain medications and sent home from the ER. However his shortness of breath has become more pronounced, and has been developing more left-sided chest pain. Presented to the ER here yesterday, and he was noted to have significant subcutaneous emphysema, multiple left-sided rib fractures, patient was admitted, and based on the initial chest x-ray, there was no evidence of pneumothorax. Patient was admitted, however late last night, the patient developed more shortness of breath, and he was developing more diaphoresis. Transferred to the ICU with worsening shortness of breath, and patient was noted to be diaphoretic. CT angiogram of the chest showed no evidence of pulmonary embolism, however there was evidence of significant subcutaneous emphysema, atelectasis, multiple rib fractures 2 through 7, some displacement of rib #6 and rib #7. There was also evidence of small left-sided pneumothorax. Not appreciated on the chest x-ray, but could be seen on the CT of the chest, extremely small and minimal. Patient was admitted to the ICU, and I was asked to see him on consultation. After reviewing his chest x-ray, CT of the chest, and after evaluating the patient, I recommended cardiothoracic surgery to evaluate the patient, and the option would be either conservatively measures or possibly place a left sided chest tube since his subcutaneous emphysema seems to be getting worse, and he clearly has a small tiny left-sided pneumothorax. In the meantime I have recommended anesthesia to see the patient, and the patient will be going down for an epidural catheter placement for pain control. During my evaluation, patient was noted to have extremely shallow breathing, and I recommended placing the patient on BiPAP with IPAP of 14 and EPAP of 4. That seemed to help him significantly, and he was no eugene to breathe much easier while on BiPAP. I also recommended an echocardiogram to rule out any possibility of cardiac contusion, troponin was also ordered. EKG showed no evidence of acute ischemic changes Patient was reevaluated today on 09/24/2019, remains in the ICU, feeling much better, remains on epidural for pain control. Patient seems to be breathing easier, compliant with his incentive spirometer. Chest x-ray is reassuring. No evidence of pneumothorax on the chest x-ray, and the subcutaneous emphysema seems to be less. However his kidney functioning seems to be a bit worse, patie nt developed acute kidney injury most likely related to the contrast media that he received rule out thromboembolic disease when the patient became extremely short of breath and diaphoretic. At that time he was transferred to the ICU. The patient is seen today 09/25/2019 in follow-up on the regular medical floor. He is awake and alert in no acute distress. His pain is better controlled with an epidural pain medications. Anesthesia is following. Lidoderm patch in place. He is less short of breath today compared to yesterday. Still with some wheezing. Receiving DuoNeb inhalations. Still on 7 L high flow nasal cannula. Currently off the BiPAP. O2 saturation 95%. Working well with the incentive spirometer. He is afebrile. White count 12.7. Hemoglobin 12.0. Sodium 129. Creatinine 3.01. The patient is seen today 09/26/2019 in follow-up on the regular medical floor. He is currently sitting up in a chair at the bedside. Awake and alert in no acute distress. Breathing easier today as compared to yesterday. He is down to 6 L high flow nasal cannula. Epidural remains in place. He is working well with the incentive spirometer. Ambulating in the room and hallway. Chest x-ray shows atelectasis of the left midlung and developing airspace disease in the left base. White count 9.1. Hemoglobin 12.0. Continued on bronchodilators. Objective - Vital Signs Vital signs: Vital Signs Temp 97.7 F 09/26/19 07:00 Pulse 90 09/26/19 08:41 Resp 22 09/26/19 07:00 BP 103/67 09/26/19 07:00 Pulse Ox 97 09/26/19 07:00 Intake & Output 09/25/19 09/26/19 09/26/19 18:59 06:59 18:59 Intake Total 890.667 Output Total 0 1100 Balance 890.667 -1100 Intake: Intake, IV Titration 110.667 Amount Ropivacaine 250 mg 110.667 fentaNYL (PF) 1,250 mcg In Sodium Chloride 0.9% 175 ml @ Per Protocol EPIDURAL .Q0M PRN Rx#: [id number] Oral 780 Output: Urine 1100 Post Void Residual 0 Other: Voiding Method Toilet Toilet Urinal Urinal # Voids 2 - Exam GENERAL EXAM: Alert, pleasant 53-year-old gentleman, on 6L high flow nasal cannula, more comfortable in no apparent distress. HEAD: Normocephalic. EYES: Normal reaction of pupils, equal size. NOSE: Clear with pink turbinates. THROAT: No erythema or exudates. NECK: No masses, no JVD. CHEST: No chest wall deformity. LUNGS: Equal air entry with bilateral end expiratory wheeze, crackles in left base, diminished. CVS: S1 and S2 normal with no audible murmur, regular rhythm. ABDOMEN: No hepatosplenomegaly, normal bowel sounds, no guarding or rigidity. SPINE: No scoliosis or deformity SKIN: Subcutaneous emphysema in the left shoulder area No rashes CENTRAL NERVOUS SYSTEM: No focal deficits, tone is normal in all 4 extremities. EXTREMITIES: There is no peripheral edema. No clubbing, no cyanosis. Peripheral pulses are intact. - Labs CBC & Chem 7: 09/26/19 07:09 09/25/19 07:12 Labs: Abnormal Lab Results - Last 24 Hours (Table) 09/26/19 Range/Units 07:09 RBC 3.90 L (4.30-5.90) m/uL Hgb 12.0 L (13.0-17.5) gm/dL Hct 35.5 L (39.0-53.0) % Lymphocytes # 0.5 L (1.0-4.8) k/uL Assessment and Plan Assessment: Multiple left-sided rib fractures secondary to previous fall Small left-sided pneumothorax, not seen on chest x-ray today. Subsegmental atelectasis in left lung base suspect contusion Significant left sided subcutaneous emphysema secondary to pneumothorax, improving Severe pain secondary to multiple rib fractures, better controlled with epidural History of hypertension History of depression Acute kidney injury secondary most likely to contrast media, 0.9 normal saline at 60 ML's per hour Plan: The patient was seen and evaluated by Dr. Lim, chest x-ray and labs reviewed. Improved today compared to yesterday Continue to work with the incentive spirometer and cough and deep breathing exercises Titrate down the FiO2 as tolerated Increase his activity as tolerated Continue bronchodilators We will continue to follow I, the cosigning physician, performed a history & physical examination of the patient. Lungs sounds with bilateral end expiratory wheeze, crackles in left base Maintaining good O2 saturations in the 90s on 6 L high flow nasal cannula. I discussed the assessment and plan of care with my nurse practitioner, Nasrin Bui. I attest to the above note as dictated by her.
--- NOTE | 2019-09-26 12:36 | P.PN ---
Progress Note - Text Progress Note Date: 09/26/19 The patient is sitting in his chair. He has good pain control from his rib fractures after epidural placement. On exam his vital signs are stable. Right chest is tender. Abdomen soft. Patient continued epidural for pain management of his rib fractures. We will just be discharged home the next 48 hours.
--- NOTE | 2019-09-26 14:59 | P.PN ---
Subjective Progress Note Date: 09/26/19 Principal diagnosis: This is a 53 year old male who is seen in consultation Acute kidney injury secondary to combination of contrast, Toradol, low blood pressure and Felipe inhibitors. He came in after a fall which was accidental and fracture of ribs. His creatinine continues to go up, on admission it was 1.4 on 09/23/2019, has gone up to 3 as of yesterday 09/25/2019. Labs are pending He does have mild cough without any expectoration. No chest pains or shortness of breath or lies on nasal cannula oxygen. He was admitted and then transferred to ICU and then transferred back to the floor. The reason for transferred to ICU was shortness of breath. CTA was done there to rule out PE Objective - Vital Signs Vital signs: Vital Signs Temp 97.4 F L 09/26/19 14:51 Pulse 72 09/26/19 14:51 Resp 18 09/26/19 14:51 BP 123/76 09/26/19 14:51 Pulse Ox 98 09/26/19 14:51 Intake & Output 09/25/19 09/26/19 09/26/19 18:59 06:59 18:59 Intake Total 890.667 400 Output Total 0 1100 Balance 890.667 -1100 400 Intake: Intake, IV Titration 110.667 Amount Ropivacaine 250 mg 110.667 fentaNYL (PF) 1,250 mcg In Sodium Chloride 0.9% 175 ml @ Per Protocol EPIDURAL .Q0M PRN Rx#: [id number] Oral 780 400 Output: Urine 1100 Post Void Residual 0 Other: Voiding Method Toilet Toilet Urinal Urinal # Voids 2 2 On examination is awake alert oriented. HEENT exam no JVP neck is supple no facial asymmetry Lungs are significant for bilateral fine crackles at bases good air entry bi laterally due to not clear but coughing Heart sounds are unremarkable for any murmur rub gallop Abdomen soft nontender no organomegaly ascites masses no bladder distention Extremity exam was minimal edema Neurologically awake alert oriented - Labs CBC & Chem 7: 09/26/19 07:09 09/25/19 07:12 Labs: Abnormal Lab Results - Last 24 Hours (Table) 09/26/19 Range/Units 07:09 RBC 3.90 L (4.30-5.90) m/uL Hgb 12.0 L (13.0-17.5) gm/dL Hct 35.5 L (39.0-53.0) % Lymphocytes # 0.5 L (1.0-4.8) k/uL Assessment and Plan Assessment: Impression 1. Acute kidney injury secondary to ATN, from combination of contrast low blood pressure Toradol and Felipe inhibitors. Creatinine 1. From 1.4 in addition to 3. We expect the creatinine to increase and then stabilize and improve over the next few days 2.. Hyponatremia from acute kidney injury sodium is 129 down from 1:30 3. Mild degree of gap and non-gap acidosis. Bicarb went down from 24-19 and gap went up from 8-12 this is from acute kidney injury 4. Total CK is a 20 unlikely rhabdomyolysis Recommendation 1. Gentle hydration. 2. The crackles heard on his lung exam likely from subcutaneous emphysema. We will watch his shortness of breath and if it. Results obtain a repeat chest x- ray 3. Regarding the acidosis will start her on sodium bicarb 650 twice a day
--- NOTE | 2019-09-26 15:52 | P.PN ---
Progress Note - Text Progress Note Date: 09/26/19 53 years old male , with multiple rib fracture ,thoracic epidural catheter placed for analgesia,( day #4 ) patient doing well epidural site okay, patient currently on combination of epidural infusion solution of Ropivacaine 0.0625% and Dilaudid 20 g per mL the infusion rate at 8 ml per hour , patient had no motor deficit epidural site okay , vital signs stable ,VAS 0/10 , Assessment and plan= epidural catheter day #4 patient doing well ,pain well controlled , there is no anesthesia related complications, we'll discontinue the epidural catheter tomorrow
[2019-09-26] MEDS: DEPLIN PO SCH (17:52)
[2019-09-26] MEDS: SODIUM BICARBONATE TAB 650 MG TAB PO SCH ×2 (17:54→20:33)
[2019-09-26] MEDS: AMITRIPTYLINE HCL 25 MG TAB PO SCH (20:32)
[2019-09-26] MEDS: busPIRone HCl 5 MG TAB PO SCH (20:33)
[2019-09-26] MEDS: TAMSULOSIN 0.4 MG CAP.ER.24H PO SCH (20:33)
[2019-09-26] MEDS: HYDROcodone/APAP 10-325MG 1 EACH TAB PO PRN (20:36)
--- NOTE | 2019-09-26 23:25 | P.PN ---
Progress Note - Text Progress Note Date: 09/26/19 - Chief Complaint rib fractures Interval history: This is a pleasant [address] Joseph Angel. Chronic stable medical conditions include hypertension, anxiety, depression, bladder outflow obstruction for which patient takes Flomax. Patient slipped on ice 2 days ago and suffered a fall following on his left chest wall. Patient went to [facility]. He was managed conservatively. Patient continued to feel short of breath. And of course uncontrolled pain. He presented down here. Admitted to the trauma service of Dr. Borrero. Patient is using the IS. No fever no chills. Did not pass out. Significant pain present. Patient is requiring BiPAP earlier . Suspected of left-sided atelectasis and some lung contusion. Today-feeding slowly improving. Feeling better. Starting some diet. No new issues. Review of systems: Was done for constitutional, cardiovascular, GI, pulmonary. relevant finding as above Active Medications Hydrocodone Bitart/Acetaminophen (Kemp 10) 1 each PO Q4H PRN PRN Reason: Pain Last Admin: 09/26/19 20:36 Dose: 1 each Documented by: Albuterol/Ipratropium (Duoneb 0.5 Mg-3 Mg/3 Ml Soln) 3 ml INHALATION RT-QID [facility] Last Admin: 09/26/19 19:53 Dose: 3 ml Documented by: Albuterol/Ipratropium (Duoneb 0.5 Mg-3 Mg/3 Ml Soln) 3 ml INHALATION RT-Q2H PRN PRN Reason: Shortness Of Breath Or Wheezing Last Admin: 09/25/19 03:09 Dose: 3 ml Documented by: Alprazolam (Xanax) 0.25 mg PO BID PRN PRN Reason: Anxiety Amitriptyline HCl (Elavil) 25 mg PO HS [facility] Last Admin: 09/26/19 20:32 Dose: 25 mg Documented by: Bupropion HCl (Wellbutrin Xl) 300 mg PO DAILY [facility] Last Admin: 09/26/19 08:02 Dose: 300 mg Documented by: Buspirone HCl (Buspar) 15 mg PO [facility] Last Admin: 09/26/19 20:33 Dose: 15 mg Documented by: Hydromorphone HCl (Dilaudid) 1 mg IVP Q2HR PRN PRN Reason: Breakthrough Pain Last Admin: 09/23/19 14:23 Dose: 1 mg Documented by: Sodium Chloride (Saline 0.9%) 1,000 mls @ 60 mls/hr IV .[id number] [facility] Last Admin: 09/26/19 08:22 Dose: Not Given Documented by: Ropivacaine 250 mg/ Fentanyl Citrate 1,250 mcg/ Sodium Chloride 250 mls @ 0 mls/hr EPIDURAL .Q0M PRN; Protocol PRN Reason: Pain Control Last Admin: 09/25/19 11:49 Dose: 8 mls/hr Documented by: Lidocaine (Lidoderm) 1 patch TOPICAL DAILY [facility] Last Admin: 09/26/19 08:01 Dose: 1 patch Documented by: Naloxone HCl (Narcan) 0.2 mg IV Q2M PRN PRN Reason: Opioid Reversal Patient's Own Med ( Deplin 1590.3/4 1 Tab) 1 tab PO DAILY@1700 [facility] Last Admin: 09/26/19 17:52 Dose: Not Given Documented by: Fluoxetine (Prozac) (20 Mg) 1 each PO DAILY [facility] Last Admin: 09/26/19 08:02 Dose: 1 each Documented by: Ondansetron HCl (Zofran) 4 mg PO Q8H PRN PRN Reason: Nausea Pantoprazole Sodium (Protonix) 40 mg PO AC-BID [facility] Last Admin: 09/26/19 17:54 Dose: 40 mg Documented by: Sodium Bicarbonate (Sodium Bicarbonate Tab) 650 mg PO QID [facility] Last Admin: 09/26/19 20:33 Dose: 650 mg Documented by: Tamsulosin HCl (Flomax) 0.4 mg PO HS [facility] Last Admin: 09/26/19 20:33 Dose: 0.4 mg Documented by: Physical examination: VITAL SIGNS: 97.4, 72, 18, 123/76, 98% on nasal cannula GENERAL: Laying in bed, awake EYES: Pupils equal. Conjunctiva normal. HEENT: External appearance of nose and ears normal, oral cavity grossly normal. NECK: JVD not raised; masses not palpable. HEART: First and second heart sounds are normal; no edema. LUNGS: Respiratory rate increased, diminished breath sounds on the left side. ABDOMEN: Soft, nontender, liver spleen not palpable, no masses palpable. PSYCH: Alert and oriented x3; mood and affect anxiousl. CHEST full: Tenderness of the left chest wall INVESTIGATIONS, reviewed in the clinical context: White count 9.1 hemoglobin 12 Previous testing UA-trace protein White count 22.3 hemoglobin 14.8 potassium 4.6. 43 creatinine 1.40 No recent labs to compare the renal function to Assessment: -Left chest wall 5 ribs fracture secondary to fall, mechanical by slipping on ice -Acute hypoxic respiratory failure secondary to splinting of the chest or rib fractures requiring BiPAP -Left-sided atelectasis and possibly lung contusion suspected -Essential hypertension -Anxiety depression not otherwise specified -Bladder outflow obstructive which patient uses Flomax. -Obesity BMI 36.6 -Acute renal failure, possibly from contrast nephropathy worsening. Plan: Continue current medication treatment plan. Discussed with the patient. Repeat labs in the morning.
[2019-09-27] MEDS: HYDROmorphone 1 MG/ML 1 ML SYRINGE IVP PRN ×3 (00:21→09:04)
[2019-09-27] MEDS: SODIUM CHLORIDE 0.9% 1,000 ML IV SCH (01:37)
[2019-09-27] MEDS: HYDROcodone/APAP 10-325MG 1 EACH TAB PO PRN ×4 (03:14→21:19)
[2019-09-27 08:15] LABS: Calcium 8.2 mg/dL (8.4-10.2); Potassium 4.6 mmol/L (3.5-5.1)
[2019-09-27] MEDS: LIDOCAINE 5% PATCH TOPICAL SCH (08:53)
[2019-09-27] MEDS: PANTOPRAZOLE 40 MG TABLET PO SCH ×2 (08:53→17:43)
[2019-09-27] MEDS: buPROPion XL 300 MG TAB.ER.24H PO SCH (08:53)
[2019-09-27] MEDS: SODIUM BICARBONATE TAB 650 MG TAB PO SCH ×4 (08:53→21:12)
[2019-09-27] MEDS: FLUOXETINE 20 MG PO SCH (08:53)
[2019-09-27] MEDS: IPRATROPIUM-ALBUTEROL 3 ML NEB INHALATION SCH ×4 (10:06→19:49)
--- NOTE | 2019-09-27 12:13 | P.PN ---
Progress Note - Text Progress Note Date: 09/27/19 The patient had his epidural catheter removed yesterday. The patient states he has more pain today due to his catheter removal. He is able to ambulate minimally. On exam vital signs are stable. Right chest wall is sore. Status post fall with multiple rib fractures. Patient will most likely be discharged to [facility] tomorrow.
[2019-09-27] MEDS: BUDESONIDE 1 MG/2 ML NEBU INHALATION SCH ×2 (12:23→19:49)
--- NOTE | 2019-09-27 12:31 | P.PN ---
Subjective Progress Note Date: 09/27/19 Principal diagnosis: This is a 53 year old male who is seen in consultation with Acute kidney injury secondary to combination of contrast, Toradol, low blood pressure and Felipe inhib itors. He came in after a fall which was accidental and fracture of ribs. His creatinine continued to go up, on admission it was 1.4 on 09/23/2019, had gone up to 3 as of 09/25/2019. Creatinine improved then to 1.25 as of this morning He does have mild cough without any expectoration. No chest pains or shortness of breath or lies on nasal cannula oxygen. He was admitted and then transferred to ICU and then transferred back to the floor. The reason for transferred to ICU was shortness of breath. CTA was done there to rule out PE Objective - Vital Signs Vital signs: Vital Signs Temp 97.4 F L 09/27/19 05:06 Pulse 89 09/27/19 10:19 Resp 20 09/27/19 05:06 BP 155/93 09/27/19 05:06 Pulse Ox 97 09/27/19 10:06 Intake & Output 09/26/19 09/27/19 09/27/19 18:59 06:59 18:59 Intake Total 700 540 Output Total 1750 Balance 700 -1750 540 Intake: Oral 700 540 Output: Urine 1750 Other: Voiding Method Toilet Toilet Urinal Urinal # Voids 2 1 Examination is awake alert oriented comfortable on nasal cannula oxygen Complains of cough A chin exam no JVP neck is supple no facial asymmetry Lungs are significant for coarse crackle at bases. A chest x-ray shows decreased lung volume. Heart sounds are unremarkable for any murmur rub gallop Abdomen soft obese nontender Extremity exam was moderate edema Neurologically awake alert oriented - Labs CBC & Chem 7: 09/26/19 07:09 09/27/19 07:41 Labs: Abnormal Lab Results - Last 24 Hours (Table) 09/27/19 Range/Units 07:41 Sodium 134 L (137-145) mmol/L BUN 43 H (9-20) mg/dL Glucose 111 H (74-99) mg/dL Calcium 8.2 L (8.4-10.2) mg/dL Assessment and Plan Assessment: Impression 1. Acute kidney injury secondary to ATN, from combination of contrast low blood pressure Toradol and Felipe inhibitors. Creatinine was 1.4, peaked at 3 and then is improved to 1.5 as this morning. Resolving 2.. Hyponatremia from acute kidney injury sodium improved to 134 this morning 3. Mild degree of gap and non-gap acidosis. Bicarb went down from 24-19 and gap went up from 8-12 , improved bicarb 26 and anion gap down to 7 4. Total CK is a 20 unlikely rhabdomyolysis Recommendation 1. DC hydration IV fluid, 2. Discontinue sodium bicarbonate. 3. Start gentle diuresis because of the ezekiel, with 20 mg of Lasix by mouth daily and follow-up labs a
[2019-09-27] MEDS: FUROSEMIDE 20 MG TAB PO SCH (13:20)
--- NOTE | 2019-09-27 15:42 | P.PN ---
Subjective Progress Note Date: 09/27/19 Principal diagnosis: Multiple rib fractures secondary to fall, subcutaneous emphysema, suspect pulmonary contusion This is a 53-year-old white male with history of hypertension, depression, patient fell on ice on Saturday, 3 days ago. He landed on his left side and left shoulder. Patient developed significant pain and crepitation in the left sided chest wall area and neck area. Patient was seen at [facility], and he was diagnosed as having multiple left-sided rib fractures. Workup for acute head injury was negative. Patient was placed on mostly pain medications and sent home from the ER. However his shortness of breath has become more pronounced, and has been developing more left-sided chest pain. Presented to the ER here yesterday, and he was noted to have significant subcutaneous emphysema, multiple left-sided rib fractures, patient was admitted, and based on the initial chest x-ray, there was no evidence of pneumothorax. Patient was admitted, however late last night, the patient developed more shortness of breath, and he was developing more diaphoresis. Transferred to the ICU with worsening shortness of breath, and patient was noted to be diaphoretic. CT angiogram of the chest showed no evidence of pulmonary embolism, however there was evidence of significant subcutaneous emphysema, atelectasis, multiple rib fractures 2 through 7, some displacement of rib #6 and rib #7. There was also evidence of small left-sided pneumothorax. Not appreciated on the chest x-ray, but could be seen on the CT of the chest, extremely small and minimal. Patient was admitted to the ICU, and I was asked to see him on consultation. After reviewing his chest x-ray, CT of the chest, and after evaluating the patient, I recommended cardiothoracic surgery to evaluate the patient, and the option would be either conservatively measures or possibly place a left sided chest tube since his subcutaneous emphysema seems to be getting worse, and he clearly has a small tiny left-sided pneumothorax. In the meantime I have recommended anesthesia to see the patient, and the patient will be going down for an epidural catheter placement for pain control. During my evaluation, patient was noted to have extremely shallow breathing, and I recommended placing the patient on BiPAP with IPAP of 14 and EPAP of 4. That seemed to help him significantly, and he was no eugene to breathe much easier while on BiPAP. I also recommended an echocardiogram to rule out any possibility of cardiac contusion, troponin was also ordered. EKG showed no evidence of acute ischemic changes Patient was reevaluated today on 09/24/2019, remains in the ICU, feeling much better, remains on epidural for pain control. Patient seems to be breathing easier, compliant with his incentive spirometer. Chest x-ray is reassuring. No evidence of pneumothorax on the chest x-ray, and the subcutaneous emphysema seems to be less. However his kidney functioning seems to be a bit worse, patie mark developed acute kidney injury most likely related to the contrast media that he received rule out thromboembolic disease when the patient became extremely short of breath and diaphoretic. At that time he was transferred to the ICU. The patient is seen today 09/25/2019 in follow-up on the regular medical floor. He is awake and alert in no acute distress. His pain is better controlled with an epidural pain medications. Anesthesia is following. Lidoderm patch in place. He is less short of breath today compared to yesterday. Still with some wheezing. Receiving DuoNeb inhalations. Still on 7 L high flow nasal cannula. Currently off the BiPAP. O2 saturation 95%. Working well with the incentive spirometer. He is afebrile. White count 12.7. Hemoglobin 12.0. Sodium 129. Creatinine 3.01. The patient is seen today 09/26/2019 in follow-up on the regular medical floor. He is currently sitting up in a chair at the bedside. Awake and alert in no acute distress. Breathing easier today as compared to yesterday. He is down to 6 L high flow nasal cannula. Epidural remains in place. He is working well with the incentive spirometer. Ambulating in the room and hallway. Chest x-ray shows atelectasis of the left midlung and developing airspace disease in the left base. White count 9.1. Hemoglobin 12.0. Continued on bronchodilators. The patient is seen today 09/27/2019 in follow-up on the regular medical floor. He is awake and alert in no acute distress. Doing better today as compared to yesterday. He's been up ambulating in the hallway with physical therapy. His pain is controlled. He is working well with the incentive spirometer. He does get wheezing at times. He remains on bronchodilators. Maintaining O2 saturations in the upper 90s on 3 L nasal cannula now. He is afebrile. Hemodynamically stable. Objective - Vital Signs Vital signs: Vital Signs Temp 98.0 F 09/27/19 14:46 Pulse 82 09/27/19 15:34 Resp 16 09/27/19 14:46 BP 143/85 09/27/19 14:46 Pulse Ox 98 09/27/19 14:46 Intake & Output 09/26/19 09/27/19 09/27/19 18:59 06:59 18:59 Intake Total 700 1620 Output Total 1750 Balance 700 -1750 1620 Intake: Intake, IV Titration 1080 Amount Sodium Chloride 0.9% 1, 1080 000 ml @ 60 mls/hr IV . [id number] BERRY Rx#:[id number] Oral 700 540 Output: Urine 1750 Other: Voiding Method Toilet Toilet Urinal Urinal # Voids 2 1 3 - Exam GENERAL EXAM: Alert, pleasant 53-year-old gentleman, on 3 L nasal cannula, more comfortable in no apparent distress. HEAD: Normocephalic. EYES: Normal reaction of pupils, equal size. NOSE: Clear with pink turbinates. THROAT: No erythema or exudates. NECK: No masses, no JVD. CHEST: No chest wall deformity. LUNGS: Equal air entry with bilateral end expiratory wheeze, crackles in left base, diminished. CVS: S1 and S2 normal with no audible murmur, regular rhythm. ABDOMEN: No hepatosplenomegaly, normal bowel sounds, no guarding or rigidity. SPINE: No scoliosis or deformity SKIN: Subcutaneous emphysema in the left shoulder area No rashes CENTRAL NERVOUS SYSTEM: No focal deficits, tone is normal in all 4 extremities. EXTREMITIES: There is no peripheral edema. No clubbing, no cyanosis. Peripheral pulses are intact. - Labs CBC & Chem 7: 09/26/19 07:09 09/27/19 07:41 Labs: Abnormal Lab Results - Last 24 Hours (Table) 09/27/19 Range/Units 07:41 Sodium 134 L (137-145) mmol/L BUN 43 H (9-20) mg/dL Glucose 111 H (74-99) mg/dL Calcium 8.2 L (8.4-10.2) mg/dL Assessment and Plan Assessment: Multiple left-sided rib fractures secondary to previous fall Small left-sided pneumothorax, not seen on chest x-ray today. Subsegmental atelectasis in left lung base suspect contusion Significant left sided subcutaneous emphysema secondary to pneumothorax, improving Severe pain secondary to multiple rib fractures, better controlled with epidural History of hypertension History of depression Acute kidney injury secondary most likely to contrast media, 0.9 normal saline at 60 ML's per hour Plan: The patient was seen and evaluated by Dr. Lim Improved today compared to yesterday. Up ambulating in the hallway with assistance. Continue to work with the incentive spirometer and cough and deep breathing exercises Titrate down the FiO2 as tolerated Increase his activity as tolerated Continue bronchodilators Repeat chest x-ray in a.m. We will continue to follow I, the cosigning physician, performed a history & physical examination of the patient. Lungs sounds with bilateral end expiratory wheeze, crackles in left base Maintaining good O2 saturations in the 90s on 3 L nasal cannula. I discussed the assessment and plan of care with my nurse practitioner, Nasrin Bui. I attest to the above note as dictated by her.
[2019-09-27] MEDS: DEPLIN PO SCH (16:11)
[2019-09-27] MEDS: busPIRone HCl 5 MG TAB PO SCH (21:11)
[2019-09-27] MEDS: TAMSULOSIN 0.4 MG CAP.ER.24H PO SCH (21:11)
[2019-09-27] MEDS: AMITRIPTYLINE HCL 25 MG TAB PO SCH (21:12)
--- NOTE | 2019-09-27 22:08 | P.PN ---
Progress Note - Text Progress Note Date: 09/27/19 - Chief Complaint rib fractures Interval history: This is a pleasant [address] Joseph Angel. Chronic stable medical conditions include hypertension, anxiety, depression, bladder outflow obstruction for which patient takes Flomax. Patient slipped on ice 2 days ago and suffered a fall following on his left chest wall. Patient went to [facility]. He was managed conservatively. Patient continued to feel short of breath. And of course uncontrolled pain. He presented down here. Admitted to the trauma service of Dr. Borrero. Patient is using the IS. No fever no chills. Did not pass out. Significant pain present. Patient is requiring BiPAP earlier . Suspected of left-sided atelectasis and some lung contusion. Acute contrast nephropathy. Today-breathing condition improved. Using the IS Minimal cough. Fair diet. Kidney function is improving. Review of systems: Was done for constitutional, cardiovascular, GI, pulmonary. relevant finding as above Active Medications Hydrocodone Bitart/Acetaminophen ([place] 10) 1 each PO Q4H PRN PRN Reason: Pain Last Admin: 09/27/19 21:19 Dose: 1 each Documented by: Albuterol/Ipratropium (Duoneb 0.5 Mg-3 Mg/3 Ml Soln) 3 ml INHALATION RT-QID [facility] Last Admin: 09/27/19 19:49 Dose: 3 ml Documented by: Albuterol/Ipratropium (Duoneb 0.5 Mg-3 Mg/3 Ml Soln) 3 ml INHALATION RT-Q2H PRN PRN Reason: Shortness Of Breath Or Wheezing Last Admin: 09/25/19 03:09 Dose: 3 ml Documented by: Alprazolam (Xanax) 0.25 mg PO BID PRN PRN Reason: Anxiety Amitriptyline HCl (Elavil) 25 mg PO [facility] Last Admin: 09/27/19 21:12 Dose: 25 mg Documented by: Budesonide (Pulmicort) 1 mg INHALATION RT-BID [facility] Last Admin: 09/27/19 19:49 Dose: 1 mg Documented by: Bupropion HCl (Wellbutrin Xl) 300 mg PO DAILY [facility] Last Admin: 09/27/19 08:53 Dose: 300 mg Documented by: Buspirone HCl (Buspar) 15 mg PO [facility] Last Admin: 09/27/19 21:11 Dose: 15 mg Documented by: Furosemide (Lasix) 20 mg PO DAILY [facility] Last Admin: 09/27/19 13:20 Dose: 20 mg Documented by: Hydromorphone HCl (Dilaudid) 1 mg IVP Q2HR PRN PRN Reason: Breakthrough Pain Last Admin: 09/27/19 09:04 Dose: 1 mg Documented by: Ropivacaine 250 mg/ Fentanyl Citrate 1,250 mcg/ Sodium Chloride 250 mls @ 0 mls/hr EPIDURAL .Q0M PRN; Protocol PRN Reason: Pain Control Last Admin: 09/25/19 11:49 Dose: 8 mls/hr Documented by: Lidocaine (Lidoderm) 1 patch TOPICAL DAILY [facility] Last Admin: 09/27/19 08:53 Dose: 1 patch Documented by: Naloxone HCl (Narcan) 0.2 mg IV Q2M PRN PRN Reason: Opioid Reversal Patient's Own Med ( Deplin 15/90.3/4 1 Tab) 1 tab PO DAILY@1700 [facility] Last Admin: 09/27/19 16:11 Dose: Not Given Documented by: Fluoxetine (Prozac) (20 Mg) 1 each PO DAILY [facility] Last Admin: 09/27/19 08:53 Dose: 1 each Documented by: Ondansetron HCl (Zofran) 4 mg PO Q8H PRN PRN Reason: Nausea Pantoprazole Sodium (Protonix) 40 mg PO AC-BID [facility] Last Admin: 09/27/19 17:43 Dose: 40 mg Documented by: Sodium Bicarbonate (Sodium Bicarbonate Tab) 650 mg PO QID [facility] Last Admin: 09/27/19 21:12 Dose: 650 mg Documented by: Tamsulosin HCl (Flomax) 0.4 mg PO [facility] Last Admin: 09/27/19 21:11 Dose: 0.4 mg Documented by: Physical examination: VITAL SIGNS: 98, 87, 16, 143/85, 98% room air GENERAL: Sitting up in a chair, awake EYES: Pupils equal. Conjunctiva normal. HEENT: External appearance of nose and ears normal, oral cavity grossly normal. NECK: JVD not raised; masses not palpable. HEART: First and second heart sounds are normal; no edema. LUNGS: Respiratory rate increased, diminished breath sounds on the left side. ABDOMEN: Soft, nontender, liver spleen not palpable, no masses palpable. PSYCH: Alert and oriented x3; mood and affect anxiousl. CHEST f: Tenderness of the left chest wall INVESTIGATIONS, reviewed in the clinical context: Bun 43 creatinine 4-5 Previous testing UA-trace protein White count 22.3 hemoglobin 14.8 potassium 4.6. 43 creatinine 1.40 than increased to 3.10 No recent labs to compare the renal function to Assessment: -Left chest wall 5 ribs fracture secondary to fall, mechanical by slipping on ice -Acute hypoxic respiratory failure secondary to splinting of the chest or rib fractures requiring BiPAP, now improved -Left-sided atelectasis and possibly lung contusion suspected -Essential hypertension -Anxiety depression not otherwise specified -Bladder outflow obstructive which patient uses Flomax. -Obesity BMI 36.6 -Acute renal failure, possibly from contrast nephropathy improving Plan: Oral looking much better. IV fluids discontinued. Encouraged to ambulate. Hypoxia much improved. Hopefully Discharge in next 24 hours
[2019-09-28] MEDS: HYDROmorphone 1 MG/ML 1 ML SYRINGE IVP PRN (03:40)
--- NOTE | 2019-09-28 07:45 | XR ---
EXAMINATION TYPE: XR chest 2V DATE OF EXAM: 09/28/2019 COMPARISON: Chest x-ray from 2 days ago and older studies. CTA chest 5 days ago. HISTORY: Left-sided rib fractures and contusion injury. TECHNIQUE: Frontal and lateral views of the chest are obtained. FINDINGS: Exam suboptimal due to patient's large body habitus, particularly limited value of lateral image. There is persistent low lung volumes with small moderate size left pleural fluid collection o r probable hemothorax. There is associated left basilar atelectasis and/or infiltrate. Right lung addy ws patchy atelectatic change. Cardiac silhouette size stable and mildly enlarged with ectatic aortic knob. Multiple displaced left rib fractures redemonstrated. IMPRESSION: Overall stable findings from most recent chest x-ray, low lung volumes and cardiomegaly with multiple left displaced rib fractures and small to moderate size associated left pleural fluid c ollection or hemothorax and associated left basilar atelectasis and/or infiltrate are all redemonstra eugene.
[2019-09-28] MEDS: BUDESONIDE 1 MG/2 ML NEBU INHALATION SCH (08:25)
[2019-09-28] MEDS: IPRATROPIUM-ALBUTEROL 3 ML NEB INHALATION SCH ×2 (08:25→11:40)
[2019-09-28] MEDS: SODIUM BICARBONATE TAB 650 MG TAB PO SCH (08:57)
[2019-09-28] MEDS: FUROSEMIDE 20 MG TAB PO SCH (08:57)
[2019-09-28] MEDS: buPROPion XL 300 MG TAB.ER.24H PO SCH (08:58)
[2019-09-28] MEDS: LIDOCAINE 5% PATCH TOPICAL SCH (08:58)
[2019-09-28] MEDS: PANTOPRAZOLE 40 MG TABLET PO SCH (08:58)
[2019-09-28] MEDS ORDERED: FUROSEMIDE 20 MG TAB PO SCH (09:00)
[2019-09-28] MEDS: FLUOXETINE 20 MG PO SCH (09:00)
--- NOTE | 2019-09-28 11:30 | P.PN ---
Subjective Patient is seen in follow-up for acute kidney injury. Renal function is improved. Creatinine 1.25 as of yesterday. Oral intake is good. Admits to good urine output. No hematuria or dysuria. Vital signs are stable. General: The patient appeared well nourished and normally developed. HEENT: Head exam is unremarkable. Neck is without jugular venous distension. LUNGS: Lungs are clear to auscultation and percussion. Breath sounds decreased. HEART: Rate and Rhythm are regular. First and second heart sounds normal. No murmurs, rubs or gallops. ABDOMEN: Abdominal exam reveals normal bowel sounds. Non-tender and non- distended. No evidence of peritonitis. EXTREMITITES: 1+ edema. Objective - Vital Signs Vital signs: Vital Signs Temp 97.8 F 09/28/19 04:52 Pulse 90 09/28/19 08:38 Resp 20 09/28/19 04:52 BP 166/94 09/28/19 04:52 Pulse Ox 96 09/28/19 04:52 Intake & Output 09/27/19 09/28/19 09/28/19 18:59 06:59 18:59 Intake Total 1620 850 Balance 1620 850 Intake: Intake, IV Titration 1080 Amount Sodium Chloride 0.9% 1, 1080 000 ml @ 60 mls/hr IV . [id number] [facility] Rx#:[id number] Oral 540 850 Other: Voiding Method Toilet Toilet Urinal Urinal # Voids 3 2 # Bowel Movements 1 - Labs CBC & Chem 7: 09/26/19 07:09 09/27/19 07:41 Assessment and Plan Plan: Assessment: 1. Acute kidney injury secondary to ATN secondary to hypotension, nonsteroidals and BETH inhibitor use. Also component of contrast-induced acute kidney injury. Better. Creatinine 1.25 as of yesterday. 2. Status post fall with rib fractures. 3. Hypovolemic hyponatremia improved with IV hydration. 4. Metabolic acidosis secondary to acute kidney injury and IV fluids. Better. 5. Mild volume overload. Plan: IV fluids have been discontinued. Maintain Lasix 20 mg once daily. Repeat CK level in the morning. Repeat electrolytes in the morning. Discontinue sodium bicarbonate.
[2019-09-28 13:07] VITALS: BP 147/92; PULSE 84; RESP 16; TEMP 97.6
--- NOTE | 2019-09-28 14:01 | P.DS ---
Providers Date of admission: 09/22/19 14:05 Expected date of discharge: 09/28/19 Attending physician: Gilmar Borrero Consults: 09/22/19 14:05 Consult Physician Routine Consulting Provider: [facility] Consult Reason/Comments: Pain control rib fractures Do you want consulting provider notified?: Yes Consult Physician Routine Consulting Provider: Leonela Lim Consult Reason/Comments: Multiple rib fractures Do you want consulting provider notified?: Yes 09/22/19 20:18 Consult Physician Routine Consulting Provider: Luther Contreras Consult Reason/Comments: medical doctor Do you want consulting provider notified?: Yes 09/23/19 02:37 Consult Physician Routine Consulting Provider: Eleazar Villaseñor Consult Reason/Comments: fractured ribs Do you want consulting provider notified?: Yes, Notify in am 09/24/19 10:42 Consult Physician Routine Consulting Provider: Hailee Sanchez Consult Reason/Comments: ej/contrast related Do you want consulting provider notified?: Yes, Notify in am 09/24/19 20:44 Consult Physician Routine Consulting Provider: Hailee Sanchez Consult Reason/Comments: Acute kidney injury Do you want consulting provider notified?: Yes Primary care physician: Joseph Turner Hospital Course: This is a 53-year-old male who was admitted to the hospital after a traumatic fall. Patient's had multiple right rib fractures. Patient had difficulties with significant pain. Please see hospital chart for details. Patient Condition at Discharge: Good Plan - Discharge Summary Discharge Rx Participant: No New Discharge Prescriptions: New HYDROcodone/APAP 5-325MG [[place] 5-325] 1 tab PO Q6HR PRN #10 tab PRN Reason: Pain Continue HYDROcodone/APAP 10-325MG [[place] 10-325] 1 tab PO Q6HR PRN PRN Reason: Pain No Action busPIRone HCL 15 mg PO HS FLUoxetine HCL [PROzac] 20 mg PO DAILY FLUoxetine HCL [PROzac] 40 mg PO DAILY Ondansetron [Zofran] 4 - 8 mg PO Q8H PRN PRN Reason: Nausea Enalapril [Vasotec] 10 mg PO DAILY ALPRAZolam [Xanax] 0.25 mg PO BID PRN PRN Reason: Anxiety Nortriptyline [Pamelor] 50 mg PO HS Amitriptyline HCl [Elavil] 25 mg PO HS buPROPion XL [Wellbutrin Xl] 150 mg PO DAILY buPROPion HCL [Wellbutrin XL] 300 mg PO DAILY Tamsulosin [Flomax] 0.4 mg PO HS Omeprazole 20 mg PO BID [place] .3/4 1 tab PO DAILY@1700 Discharge Medication List ALPRAZolam [Xanax] 0.25 mg PO BID PRN 09/22/19 [History] Amitriptyline HCl [Elavil] 25 mg PO HS 09/22/19 [History] Deplin .3/4 1 tab PO DAILY@1700 09/22/19 [History] Enalapril [Vasotec] 10 mg PO DAILY 09/22/19 [History] FLUoxetine HCL [PROzac] 20 mg PO DAILY 09/22/19 [History] FLUoxetine HCL [PROzac] 40 mg PO DAILY 09/22/19 [History] HYDROcodone/APAP 10-325MG [[place] 10-325] 1 tab PO Q6HR PRN 09/22/19 [History] Nortriptyline [Pamelor] 50 mg PO HS 09/22/19 [History] Omeprazole 20 mg PO BID 09/22/19 [History] Ondansetron [Zofran] 4 - 8 mg PO Q8H PRN 09/22/19 [History] Tamsulosin [Flomax] 0.4 mg PO HS 09/22/19 [History] buPROPion HCL [Wellbutrin XL] 300 mg PO DAILY 09/22/19 [History] buPROPion XL [Wellbutrin Xl] 150 mg PO DAILY 09/22/19 [History] busPIRone HCL 15 mg PO HS 09/22/19 [History] HYDROcodone/APAP 5-325MG [[place] 5-325] 1 tab PO Q6HR PRN #10 tab 09/28/19 [Rx] Follow up Appointment(s)/Referral(s): Joseph Turner DO [Primary Care Provider] - 1-2 days Gilmar Borrero MD [STAFF PHYSICIAN] - 1 Week Discharge Disposition: HOME SELF-CARE
--- NOTE | 2019-09-28 14:05 | P.PN ---
Subjective Progress Note Date: 09/28/19 Principal diagnosis: Multiple rib fractures secondary to fall, subcutaneous emphysema, suspect pulmonary contusion This is a 53-year-old white male with history of hypertension, depression, patient fell on ice on Saturday, 3 days ago. He landed on his left side and left shoulder. Patient developed significant pain and crepitation in the left sided chest wall area and neck area. Patient was seen at [facility], and he was diagnosed as having multiple left-sided rib fractures. Workup for acute head injury was negative. Patient was placed on mostly pain medications and sent home from the ER. However his shortness of breath has become more pronounced, and has been developing more left-sided chest pain. Presented to the ER here yesterday, and he was noted to have significant subcutaneous emphysema, multiple left-sided rib fractures, patient was admitted, and based on the initial chest x-ray, there was no evidence of pneumothorax. Patient was admitted, however late last night, the patient developed more shortness of breath, and he was developing more diaphoresis. Transferred to the ICU with worsening shortness of breath, and patient was noted to be diaphoretic. CT angiogram of the chest showed no evidence of pulmonary embolism, however there was evidence of significant subcutaneous emphysema, atelectasis, multiple rib fractures 2 through 7, some displacement of rib #6 and rib #7. There was also evidence of small left-sided pneumothorax. Not appreciated on the chest x-ray, but could be seen on the CT of the chest, extremely small and minimal. Patient was admitted to the ICU, and I was asked to see him on consultation. After reviewing his chest x-ray, CT of the chest, and after evaluating the patient, I recommended cardiothoracic surgery to evaluate the patient, and the option would be either conservatively measures or possibly place a left sided chest tube since his subcutaneous emphysema seems to be getting worse, and he clearly has a small tiny left-sided pneumothorax. In the meantime I have recommended anesthesia to see the patient, and the patient will be going down for an epidural catheter placement for pain control. During my evaluation, patient was noted to have extremely shallow breathing, and I recommended placing the patient on BiPAP with IPAP of 14 and EPAP of 4. That seemed to help him significantly, and he was no eugene to breathe much easier while on BiPAP. I also recommended an echocardiogram to rule out any possibility of cardiac contusion, troponin was also ordered. EKG showed no evidence of acute ischemic changes Patient was reevaluated today on 09/24/2019, remains in the ICU, feeling much better, remains on epidural for pain control. Patient seems to be breathing easier, compliant with his incentive spirometer. Chest x-ray is reassuring. No evidence of pneumothorax on the chest x-ray, and the subcutaneous emphysema seems to be less. However his kidney functioning seems to be a bit worse, patie mark developed acute kidney injury most likely related to the contrast media that he received rule out thromboembolic disease when the patient became extremely short of breath and diaphoretic. At that time he was transferred to the ICU. The patient is seen today 09/25/2019 in follow-up on the regular medical floor. He is awake and alert in no acute distress. His pain is better controlled with an epidural pain medications. Anesthesia is following. Lidoderm patch in place. He is less short of breath today compared to yesterday. Still with some wheezing. Receiving DuoNeb inhalations. Still on 7 L high flow nasal cannula. Currently off the BiPAP. O2 saturation 95%. Working well with the incentive spirometer. He is afebrile. White count 12.7. Hemoglobin 12.0. Sodium 129. Creatinine 3.01. The patient is seen today 09/26/2019 in follow-up on the regular medical floor. He is currently sitting up in a chair at the bedside. Awake and alert in no acute distress. Breathing easier today as compared to yesterday. He is down to 6 L high flow nasal cannula. Epidural remains in place. He is working well with the incentive spirometer. Ambulating in the room and hallway. Chest x-ray shows atelectasis of the left midlung and developing airspace disease in the left base. White count 9.1. Hemoglobin 12.0. Continued on bronchodilators. The patient is seen today 09/27/2019 in follow-up on the regular medical floor. He is awake and alert in no acute distress. Doing better today as compared to yesterday. He's been up ambulating in the hallway with physical therapy. His pain is controlled. He is working well with the incentive spirometer. He does get wheezing at times. He remains on bronchodilators. Maintaining O2 saturations in the upper 90s on 3 L nasal cannula now. He is afebrile. Hemodynamically stable. The patient is seen today 09/28/2019 in follow-up on the regular medical floor. He is currently sitting up at the bedside. Awake and alert in no acute distress. Doing quite a bit better. Pain is better controlled. Chest x-ray is stable with ongoing multiple left displaced rib fractures and small to moderate size associated left pleural fluid collection or hemothorax associated left basilar atelectasis. Maintaining O2 saturations in the mid 90s on room air. He's afebrile. Hemodynamically stable. Continues to work well with the incentive spirometer. Objective - Vital Signs Vital signs: Vital Signs Temp 97.6 F 09/28/19 12:47 Pulse 84 09/28/19 12:47 Resp 16 09/28/19 12:47 BP 147/92 09/28/19 12:47 Pulse Ox 97 09/28/19 12:47 Intake & Output 09/27/19 09/28/19 09/28/19 18:59 06:59 18:59 Intake Total 1620 850 Balance 1620 850 Intake: Intake, IV Titration 1080 Amount Sodium Chloride 0.9% 1, 1080 000 ml @ 60 mls/hr IV . [id number] [facility] Rx#:[id number] Oral 540 850 Other: Voiding Method Toilet Toilet Urinal Urinal # Voids 3 2 # Bowel Movements 1 - Exam GENERAL EXAM: Alert, pleasant 53-year-old gentleman, on room air, more comfortab le in no apparent distress. HEAD: Normocephalic. EYES: Normal reaction of pupils, equal size. NOSE: Clear with pink turbinates. THROAT: No erythema or exudates. NECK: No masses, no JVD. CHEST: No chest wall deformity. LUNGS: Equal air entry with crackles in left base, diminished. CVS: S1 and S2 normal with no audible murmur, regular rhythm. ABDOMEN: No hepatosplenomegaly, normal bowel sounds, no guarding or rigidity. SPINE: No scoliosis or deformity SKIN: Subcutaneous emphysema in the left shoulder area No rashes CENTRAL NERVOUS SYSTEM: No focal deficits, tone is normal in all 4 extremities. EXTREMITIES: There is no peripheral edema. No clubbing, no cyanosis. Peripheral pulses are intact. - Labs CBC & Chem 7: 09/26/19 07:09/27/19 07:41 Assessment and Plan Assessment: Multiple left-sided rib fractures secondary to previous fall Small left-sided pneumothorax, not seen on follow-up chest x-ray. Subsegmental atelectasis in left lung base suspect contusion Significant left sided subcutaneous emphysema secondary to pneumothorax, improving Severe pain secondary to multiple rib fractures, better controlled with epidural History of hypertension History of depression Acute kidney injury secondary most likely to contrast media, 0.9 normal saline at 60 ML's per hour Plan: The patient was seen and evaluated by Dr. Wilkinson He is cleared for discharge from the pulmonary standpoint. Continue to work with the incentive spirometer and cough and deep breathing exercises Follow-up in our office in 1-2 weeks' time. We'll repeat a chest x-ray then. He is encouraged to call sooner if any worsening of symptoms or other questions or concerns. I, the cosigning physician, performed a history & physical examination of the patient. Lungs sounds with crackles in left base. Maintaining good O2 saturations in the 90s on room air. I discussed the assessment and plan of care with my nurse practitioner, Nasrin Bui. I attest to the above note as dictated by her.
--- NOTE | 2019-09-29 00:42 | P.PN ---
Progress Note - Text Progress Note Date: 09/28/19 - Chief Complaint rib fractures Interval history: This is a pleasant [address] Joseph Angel. Chronic stable medical conditions include hypertension, anxiety, depression, bladder outflow obstruction for which patient takes Flomax. Patient slipped on ice 2 days ago and suffered a fall following on his left chest wall. Patient went to [facility]. He was managed conservatively. Patient continued to feel short of breath. And of course uncontrolled pain. He presented down here. Admitted to the trauma service of Dr. Borrero. Patient is using the IS. No fever no chills. Did not pass out. Significant pain present. Patient is requiring BiPAP earlier . Suspected of left-sided atelectasis and some lung contusion. Acute contrast nephropathy. Today-feeling much improved. Renal function not improve. Getting better. Pain much improved. at the bedside. Discussed with the patient . Review of systems: Was done for constitutional, cardiovascular, GI, pulmonary. relevant finding as above Current medications reviewed and today's electronic records Physical examination: VITAL SIGNS: 97.6, 84, 16, 147/92, 97% on room air GENERAL: Sitting up in a chair, comfortable EYES: Pupils equal. Conjunctiva normal. HEENT: External appearance of nose and ears normal, oral cavity grossly normal. NECK: JVD not raised; masses not palpable. HEART: First and second heart sounds are normal; no edema. LUNGS: Respiratory rate normal, improved air entry. ABDOMEN: Soft, nontender, liver spleen not palpable, no masses palpable. PSYCH: Alert and oriented x3; mood and affect anxiousl. CHEST f: Tenderness of the left chest wall, much decreased INVESTIGATIONS, reviewed in the clinical context: Bun 43 creatinine 1.25 Previous testing UA-trace protein White count 22.3 hemoglobin 14.8 potassium 4.6. 43 creatinine 1.40 than increased to 3.10 No recent labs to compare the renal function to Assessment: -Left chest wall 5 ribs fracture secondary to fall, mechanical by slipping on ice -Acute hypoxic respiratory failure secondary to splinting of the chest or rib fractures requiring BiPAP, corrected -Left-sided atelectasis and possibly lung contusion suspected -Essential hypertension -Anxiety depression not otherwise specified -Bladder outflow obstructive which patient uses Flomax. -Obesity BMI 36.6 -Acute renal failure, possibly from contrast nephropathy much improved Plan: Care discussed the patient . Oral much improved. Continue to ambulate. If discharged to follow his family doctor. Continue to use the IS
== END 2019-09-28 15:41 | disposition home or self-care (01) | DRG 183 ==
LOC: EC 11:52 → 3SCARD 14:05 → 2SICU 09-23 00:10 → 6NMEDSUR 09-24 22:15
PROVIDERS: ADMIT Surgery; ATTEND Surgery
PROC: 5A09457 Assistance with Respiratory Ventilation, 24-96 Consecutive Hours, Continuous Positive Airway Pressure (ICD-10-PCS; 2019-09-23)
PROC: 00HU33Z Insertion of Infusion Device into Spinal Canal, Percutaneous Approach (ICD-10-PCS; principal; 2019-09-23 15:00)
PROC: 3E0R3NZ Introduction of Analgesics, Hypnotics, Sedatives into Spinal Canal, Percutaneous Approach (ICD-10-PCS; principal; 2019-09-23 15:00)
DX: S22.42XA Multiple fractures of ribs, left side, initial encounter for closed fracture (principal); J96.01 Acute respiratory failure with hypoxia; N17.0 Acute kidney failure with tubular necrosis; E87.1 Hypo-osmolality and hyponatremia; E87.2 Acidosis; S27.0XXA Traumatic pneumothorax, initial encounter; T79.7XXA Traumatic subcutaneous emphysema, initial encounter; I10 Essential (primary) hypertension; W00.0XXA Fall on same level due to ice and snow, initial encounter; E66.9 Obesity, unspecified; F41.8 Other specified anxiety disorders; E86.1 Hypovolemia; T50.8X5A Adverse effect of diagnostic agents, initial encounter; Z90.89 Acquired absence of other organs; Z68.36 Body mass index [BMI] 36.0-36.9, adult; Z98.890 Other specified postprocedural states; Z84.1 Family history of disorders of kidney and ureter; Z79.899 Other long term (current) drug therapy; Z88.2 Allergy status to sulfonamides
CPT/HCPCS: 36600; 62325; 71045; 71046; 71275; 76770; 80048; 81001; 82550; 82805; 83605; 84484; 85025; 93306; 94640; 94660; 94760; 96374; 96375; 96376; 99285

== ENCOUNTER 2020-03-25 08:51 | Day surgery (SDC) | payer OTHER ==
[2020-03-25 09:05] VITALS: BP 145/87; PULSE 82; RESP 18; TEMP 98.3
[2020-03-25] MEDS ORDERED: ALPRAZolam 0.5 MG TAB PO STA (09:07)
[2020-03-25 09:35] LABS: Mean Platelet Volume 7.7; Platelet Count 190 k/uL (150-450)
[2020-03-25 09:43] LABS: INR 1.2 (<1.2); Prothrombin Time 11.8 sec (9.0-12.0)
--- NOTE | 2020-03-25 14:12 | US ---
EXAMINATION TYPE: US discontinued thoracentesis DATE OF EXAM: 03/25/2020 COMPARISON: Outside institution CT thorax 02/17/2020. HISTORY: Pleural effusion. FINDINGS: Preliminary ultrasound scanning of the left chest was performed, demonstrating small locula eugene left pleural effusion which had mildly decreased in size versus 02/17/2020 CT comparison. This thoracentesis was ordered for therapeutic purposes. The small size of the pleural effusion and l ikely low therapeutic benefit was discussed with the patient. The patient reports intermittent coughi ng, some anterior rib pain with deep inspiration due to healing rib fractures, and no shortness of br eath. The risks, benefits, and alternatives of the thoracentesis were discussed with the patient and the decision was made to forego thoracentesis at this time. IMPRESSION: Small loculated left pleural effusion, mildly decreased in size versus 02/17/2020 CT comparison. After discussion with the patient, thoracentesis was not performed due to suspected low therapeutic benefi t. There is likely enough fluid to perform diagnostic thoracentesis should the clinical need arise. A lso discussed with patient that he could reschedule thoracentesis if symptoms worsen.
== END 2020-03-25 10:20 | disposition home or self-care (01) ==
LOC: RADPROMAIN 08:51
PROVIDERS: ATTEND Thoracic Surgery (Cardiothoracic Vascular Surgery)
DX: J90 Pleural effusion, not elsewhere classified (principal); Z88.2 Allergy status to sulfonamides
CPT/HCPCS: 36415; 76604; 85049; 85610

== ENCOUNTER 2020-05-16 00:52 | Emergency (ER) | payer OTHER, BC ==
[2020-05-16 00:58] VITALS: TEMP 98.2
[2020-05-16 01:19] VITALS: RESP 18
--- NOTE | 2020-05-16 01:43 | XR ---
EXAMINATION TYPE: XR chest 2V DATE OF EXAM: 05/16/2020 COMPARISON: 09/28/2019 HISTORY: Chest pain TECHNIQUE: FINDINGS: Heart is normal. There is pleural thickening left chest wall and blunting left costophrenic angle. There are multiple left-sided old rib fractures. There are chest leads. There is no heart krysten lure. Thoracic spine is intact. IMPRESSION: No acute lung disease. There is improved aeration of the left lung compared to old exam. Old left-sided rib fractures. Pleural scarring at the lateral left lung base.
[2020-05-16 01:50] LABS: Basophils % (A) 0 %; Eosinophils # (A) 0.2 k/uL (0-0.7); Eosinophils % (A) 2 %; HCT 43.2 % (39.0-53.0); HGB 14.4 gm/dL (13.0-17.5); Lymphocytes # (A) 1.1 k/uL (1.0-4.8); Lymphocytes % (A) 10 %; MCH 28.9 pg (25.0-35.0); MCHC 33.2 g/dL (31.0-37.0); Mean Platelet Volume 7.3; Monocytes # (A) 0.6 k/uL (0-1.0); Monocytes % (A) 5 %; Neutrophils # (A) 8.4 k/uL (1.3-7.7); Neutrophils % (A) 81 %; Platelet Count 209 k/uL (150-450); RBC 4.96 m/uL (4.30-5.90); RDW 13.5 % (11.5-15.5); WBC 10.4 k/uL (3.8-10.6)
[2020-05-16 01:57] LABS: INR 1.1 (<1.2); Partial Thromboplastin Time 27.1 sec (22.0-30.0); Prothrombin Time 11.3 sec (9.0-12.0)
[2020-05-16 02:01] LABS: ALT 24 U/L (4-49); AST 24 U/L (17-59); African American GFR (CKD) >90 (>60 ml/min/1.73 sqM); Alkaline Phosphatase 49 U/L (38-126); Anion Gap 9 mmol/L; Blood Urea Nitrogen 18 mg/dL (9-20); Calcium 8.8 mg/dL (8.4-10.2); Carbon Dioxide 25 mmol/L (22-30); Chloride 106 mmol/L (98-107); Creatine Kinase 110 U/L (55-170); Glucose 123 mg/dL (74-99); Magnesium 1.8 mg/dL (1.6-2.3); Non-African American GFR(CKD) 89 (>60 ml/min/1.73 sqM); Sodium 140 mmol/L (137-145); Total Bilirubin 0.3 mg/dL (0.2-1.3); Total Protein 6.6 g/dL (6.3-8.2)
--- NOTE | 2020-05-16 02:44 | ED ---
Chest Pain HPI - General Chief Complaint: Chest Pain Stated Complaint: Back and Chest Pain Time Seen by Provider: 05/16/20 01:07 Source: patient Mode of arrival: ambulatory - History of Present Illness Initial Comments: Rodolfo is a 54-year-old male who reports that earlier in the week he was doing some heavy lifting and he has subsequently developed some upper back pain. Patient reports he's had similar back in the past. He's been taking [id number] medications but feels like his back is very tight. This evening he cannot get comfortable or falsely. Patient states that he was taken by from the hospital and he became to very anxious felt like he had some pressure in his chest. Patient states this happens to him when he has anxiety. He does not have any cardiac history. He did not have any exertional chest pain, chest pain is not associated with diaphoresis lightheadedness or shortness of breath. - Related Data Home Medications Medication Instructions Recorded Confirmed ALPRAZolam [Xanax] 0.25 mg PO BID PRN 09/22/19 03/25/20 Amitriptyline HCl [Elavil] 25 mg PO HS 09/22/19 03/25/20 Enalapril [Vasotec] 10 mg PO DAILY 09/22/19 03/25/20 Nortriptyline [Pamelor] 50 mg PO HS 09/22/19 03/25/20 Omeprazole 20 mg PO BID 09/22/19 03/25/20 Ondansetron [Zofran] 4 - 8 mg PO Q8H PRN 09/22/19 03/25/20 Tamsulosin [Flomax] 0.4 mg PO HS 09/22/19 03/25/20 buPROPion HCL [Wellbutrin XL] 300 mg PO DAILY 09/22/19 03/25/20 Albuterol Sulfate [Proair 1 puff INHALATION Q6H PRN 03/14/20 03/25/20 Digihaler] Cholecalciferol (Vitamin D3) 50 mcg PO DAILY 03/14/20 03/25/20 [Vitamin D3] Previous Rx's Medication Instructions Recorded HYDROcodone/APAP 5-325MG [[place] 1 tab PO Q6HR PRN #10 tab 09/28/19 5-325] Lidocaine 5% Patch [Lidoderm] 1 patch TOPICAL DAILY #30 patch 05/16/20 Methocarbamol [Robaxin-750] 750 mg PO TID #30 tablet 05/16/20 Allergies Allergy/AdvReac Type Severity Reaction Status Date / Time milk Allergy Nausea & Verified 05/16/20 00:59 Vomiting Sulfa (Sulfonamide Allergy Rash/Hives Verified 05/16/20 00:59 Antibiotics) sulfamethoxazole Allergy Swelling Verified 05/16/20 00:59 [From Bactrim] trimethoprim [From Bactrim] Allergy Swelling Verified 05/16/20 00:59 Review of Systems ROS Statement: Those systems with pertinent positive or pertinent negative responses have been documented in the HPI. ROS Other: All systems not noted in ROS Statement are negative. EKG Findings - EKG Comments: EKG Findings:: EKG was obtained due to complaint of chest pain, EKG was obtained at 1:14 AM, rate 71 rhythm is sinus PACs are noted, HI 154, QRS is 86, QTC is 419 there are no acute ST elevations or depressions no evidence of acute ischemia or infarction Past Medical History Past Medical History: Asthma, Hypertension Additional Past Medical History / Comment(s): Fall from standing from ice with temporary loss of consciousness, rib fractures History of Any Multi-Drug Resistant Organisms: None Reported Past Surgical History: Tonsillectomy Additional Past Surgical History / Comment(s): (R) ankle repair, urethral strictures surgery Past Anesthesia/Blood Transfusion Reactions: No Reported Reaction Past Psychological History: Anxiety Smoking Status: Never smoker Past Alcohol Use History: None Reported Past Drug Use History: None Reported - Past Family History Father Family Medical History: Renal Disease Additional Family Medical History / Comment(s): Still living, HD patient Mother Family Medical History: No Reported History General Exam - General Exam Comments Initial Comments: Physical Exam GENERAL: Patient is well-developed and well-nourished. Patient is nontoxic and well- hydrated and is in no distress. HENT: Normocephalic, Atraumatic. EYES: PERRL, EOMI PULMONARY: Unlabored respirations. No audible rales rhonchi or wheezing was noted. CARDIOVASCULAR: There is a regular rate and rhythm without any murmurs gallops or rubs. ABDOMEN: Soft and nontender with normal bowel sounds. SKIN: Skin is clear with no lesions or rashes and otherwise unremarkable. : Deferred NEUROLOGIC: Patient is alert and oriented x3. Moving all extremities spontaneously MUSCULOSKELETAL: Hypertonic paraspinal muscles bilaterally, tenderness to patient paraspinals, no midline spinal tenderness Normal extremities with adequate strength and full range of motion. No lower extremity swelling or edema. No calf tenderness. PSYCHIATRIC: Normal psychiatric evaluation. Course Vital Signs 05/16/20 05/16/20 05/16/20 00:55 01:18 02:57 Temperature 98.2 F 98.2 F Pulse Rate 68 70 89 Respiratory 19 18 18 Rate Blood Pressure 162/104 148/86 138/86 O2 Sat by Pulse 100 100 99 Oximetry Chest Pain MDM - MDM The patient was seen and evaluated history is obtained from patient Patient with mechanical back pain that is not in the midline not associated with any focal neurologic deficits no weakness in the legs no saddle paresthesias no urinary or bowel retention or incontinence Patient reported some chest pressure prior to arrival in the emergency department resolved at this time similar to previous episodes of panic attack Labs are unremarkable troponin is negative EKG is nonischemic chest x-ray with no acute findings, chronic previous rib fractures noted Supportive care was discussed with the patient he was treated with anti-in flammatories and Lidoderm he will be discharged home with muscle relaxers and Lidoderm patches patient does have [place] at home from previous diagnoses. All questions pertaining care were answered return parameters were discussed patient was discharged home in stable condition. Disposition Clinical Impression: Mechanical back pain Disposition: HOME SELF-CARE Condition: Stable Instructions (If sedation given, give patient instructions): Back Pain (ED) Additional Instructions: As we discussed I believe your pain is due to muscle strain Take the Robaxin as needed for muscle spasm, apply lidoderm to painful area Follow up with your doctor this week for re-evaluation Return to the ER if you have any worsening or develop any new or concerning symptoms including numbness or weakness in your extremities, difficulty walking, urinating or having bowel movement or any new or concerning symptoms Prescriptions: Lidocaine 5% Patch [Lidoderm] 1 patch TOPICAL DAILY #30 patch Methocarbamol [Robaxin-750] 750 mg PO TID #30 tablet Is patient prescribed a controlled substance at d/c from ED?: No Referrals: Joseph Turner DO [Primary Care Provider] - 1-2 days
[2020-05-16] MEDS ORDERED: MORPHINE SULFATE 4 MG/ML SYRINGE IVP STA (02:48)
[2020-05-16] MEDS ORDERED: ORPHENADRINE 30 MG/ML 2 ML VIAL IM STA (02:48)
[2020-05-16] MEDS ORDERED: LIDOCAINE 5% PATCH TOPICAL STA (02:49)
[2020-05-16 02:58] VITALS: BP 138/86; PULSE 89
== END 2020-05-16 03:11 | disposition home or self-care (01) ==
LOC: EC 00:52
DX: M54.6 Pain in thoracic spine (principal); I10 Essential (primary) hypertension; J45.909 Unspecified asthma, uncomplicated; F41.9 Anxiety disorder, unspecified; Z79.899 Other long term (current) drug therapy; Z88.1 Allergy status to other antibiotic agents; Z91.011 Allergy to milk products; Z88.2 Allergy status to sulfonamides
CPT/HCPCS: 36415; 93005; 80053; 82550; 83735; 84484; 85025; 85610; 85730; 71046; 99285; 96374; 96372; J2270; J2360

== ENCOUNTER 2022-03-06 04:06 | Emergency (ER) | payer OTHER ==
[2022-03-06 04:10] VITALS: PULSE 95; RESP 20; TEMP 98.2
--- NOTE | 2022-03-06 04:27 | ED ---
URI HPI - General Chief Complaint: Upper Respiratory Infection Stated Complaint: Cough Time Seen by Provider: 03/06/22 04:16 Source: patient, RN notes reviewed, old records reviewed Mode of arrival: ambulatory Limitations: no limitations - History of Present Illness Initial Comments: This is a 56-year-old male to the emergency department for evaluation. Patient has significant cough and congestion no known sick contacts no fevers no travel history. Patient has no significant medical history takes no medications patient does have history of asthma but no current wheezing or shortness of breath MD Complaint: cough, sore throat, nasal congestion -: days(s) Severity: mild Severity scale (1-10): 2 Quality: dull Consistency: intermittent Improves With: nothing Worsens With: nothing Context: sick contacts Associated Symptoms: headache, rhinorrhea, nasal congestion, sore throat Treatments Prior to Arrival: none - Related Data Home Medications Medication Instructions Recorded Confirmed ALPRAZolam [Xanax] 0.25 mg PO BID PRN 09/22/19 03/25/20 Amitriptyline HCl [Elavil] 25 mg PO HS 09/22/19 03/25/20 Enalapril [Vasotec] 10 mg PO DAILY 09/22/19 03/25/20 Nortriptyline [Pamelor] 50 mg PO HS 09/22/19 03/25/20 Omeprazole 20 mg PO BID 09/22/19 03/25/20 Ondansetron [Zofran] 4 - 8 mg PO Q8H PRN 09/22/19 03/25/20 Tamsulosin [Flomax] 0.4 mg PO HS 09/22/19 03/25/20 buPROPion HCL [Wellbutrin XL] 300 mg PO DAILY 09/22/19 03/25/20 Albuterol Sulfate [Proair 1 puff INHALATION Q6H PRN 03/14/20 03/25/20 Digihaler] Cholecalciferol (Vitamin D3) 50 mcg PO DAILY 03/14/20 03/25/20 [Vitamin D3] Previous Rx's Medication Instructions Recorded HYDROcodone/APAP 5-325MG [Risingsun 1 tab PO Q6HR PRN #10 tab 09/28/19 5-325] Lidocaine 5% Patch [Lidoderm] 1 patch TOPICAL DAILY #30 patch 05/16/20 methocarbamoL [Robaxin-750] 750 mg PO TID #30 tablet 05/16/20 Amoxic-Pot Clav 875-125Mg 1 tab PO Q12HR #20 tablet 03/06/22 [Augmentin 875-125] Benzonatate [Tessalon Perles] 100 mg PO TID PRN #15 capsule 03/06/22 Allergies Allergy/AdvReac Type Severity Reaction Status Date / Time milk Allergy Nausea & Verified 03/06/22 04:10 Vomiting Sulfa (Sulfonamide Allergy Rash/Hives Verified 03/06/22 04:10 Antibiotics) sulfamethoxazole Allergy Swelling Verified 03/06/22 04:10 [From Bactrim] trimethoprim [From Bactrim] Allergy Swelling Verified 03/06/22 04:10 Review of Systems ROS Statement: Those systems with pertinent positive or pertinent negative responses have been documented in the HPI. ROS Other: All systems not noted in ROS Statement are negative. Past Medical History Past Medical History: Asthma, Hypertension Additional Past Medical History / Comment(s): Fall from standing from ice with temporary loss of consciousness, rib fractures History of Any Multi-Drug Resistant Organisms: None Reported Past Surgical History: Tonsillectomy Additional Past Surgical History / Comment(s): (R) ankle repair, urethral str ictures surgery Past Anesthesia/Blood Transfusion Reactions: No Reported Reaction Past Psychological History: Anxiety Smoking Status: Never smoker Past Alcohol Use History: None Reported Past Drug Use History: None Reported - Past Family History Father Family Medical History: Renal Disease Additional Family Medical History / Comment(s): Still living, HD patient Mother Family Medical History: No Reported History General Exam Limitations: no limitations General appearance: alert, in no apparent distress Head exam: Present: atraumatic, normocephalic, normal inspection Eye exam: Present: normal appearance, PERRL, EOMI. Absent: scleral icterus, conjunctival injection, periorbital swelling ENT exam: Present: normal exam, mucous membranes moist Neck exam: Present: normal inspection. Absent: tenderness, meningismus, lymphadenopathy Respiratory exam: Present: normal lung sounds bilaterally. Absent: respiratory distress, wheezes, rales, rhonchi, stridor Cardiovascular Exam: Present: regular rate, normal rhythm, normal heart sounds. Absent: systolic murmur, diastolic murmur, rubs, gallop, clicks GI/Abdominal exam: Present: soft, normal bowel sounds. Absent: distended, tenderness, guarding, rebound, rigid Extremities exam: Present: normal inspection, full ROM, normal capillary refill. Absent: tenderness, pedal edema, joint swelling, calf tenderness Back exam: Present: normal inspection Neurological exam: Present: alert, oriented X3, CN II-XII intact Psychiatric exam: Present: normal affect, normal mood Skin exam: Present: warm, dry, intact, normal color. Absent: rash Course Vital Signs 03/06/22 03/06/22 04:07 06:05 Temperature 98.2 F Pulse Rate 95 Respiratory 20 Rate Blood Pressure 166/88 149/80 O2 Sat by Pulse 97 Oximetry - Reevaluation(s) Reevaluation #1: 03/06/22 Medical record is reviewed Reevaluation #2: 03/06/22 Patient informed of results and questions answered Reevaluation #3: 03/06/22 Patient is no significant change in symptoms here in the ER Medical Decision Making - Medical Decision Making 56 male to the emergency department with cough and nonproductive cough his cough has lasted for about a week, is normal chest x-ray here in the ER no fevers no other significant findings patient can be discharged home - Radiology Data Radiology results: report reviewed (Chest x-rays negative for acute disease), image reviewed Disposition Clinical Impression: Acute upper respiratory infection Disposition: HOME SELF-CARE Condition: Good Instructions (If sedation given, give patient instructions): Upper Respiratory Infection (ED) Prescriptions: Amoxic-Pot Clav 875-125Mg [Augmentin 875-125] 1 tab PO Q12HR #20 tablet Benzonatate [Tessalon Perles] 100 mg PO TID PRN #15 capsule PRN Reason: Cough Is patient prescribed a controlled substance at d/c from ED?: No Referrals: Joseph Turner DO [Primary Care Provider] - 1-2 days Time of Disposition: 05:20
[2022-03-06] MEDS ORDERED: BENZONATATE 100 MG CAP PO STA (04:54)
[2022-03-06] MEDS ORDERED: dexAMETHasone 2 MG TAB PO STA (04:54)
[2022-03-06] MEDS ORDERED: AMOXIC-POT CLAV 875-125MG 1 EACH TAB PO STA (04:54)
[2022-03-06 06:07] VITALS: BP 149/80
--- NOTE | 2022-03-06 06:18 | XR ---
EXAM: XR Chest, 1 View CLINICAL HISTORY: ITS.REASON XR Reason: coughj TECHNIQUE: Frontal view of the chest. COMPARISON: 04/21/2021. FINDINGS: Lungs: Unremarkable. No consolidation. Pleural space: Blunting of the left costophrenic angle similar to the prior and likely chronic changes. No pneumothorax. Heart: Unremarkable. No cardiomegaly. Mediastinum: Unremarkable. Bones/joints: Multiple old left rib fracture deformities, stable. IMPRESSION: 1. No evidence of acute cardiopulmonary disease. No significant interval change. 2. Stable chronic left-sided rib fractures and blunting of the left costophrenic angle/scarring.
== END 2022-03-06 06:06 | disposition home or self-care (01) ==
LOC: EC 04:06
DX: J06.9 Acute upper respiratory infection, unspecified (principal); I10 Essential (primary) hypertension; Z91.011 Allergy to milk products; Z88.2 Allergy status to sulfonamides; Z88.8 Allergy status to other drugs, medicaments and biological substances
CPT/HCPCS: 71045; 99284; J8540

== ENCOUNTER 2023-04-22 02:52 | Emergency (ER) | payer OTHER ==
[2023-04-22 02:58] VITALS: RESP 18; TEMP 97.8
[2023-04-22] MEDS ORDERED: IPRATROPIUM-ALBUTEROL 3 ML NEB INHALATION STA (03:13)
[2023-04-22] MEDS ORDERED: predniSONE 20 MG TAB PO STA (03:13)
[2023-04-22] MEDS ORDERED: ALBUTEROL NEBULIZED 2.5 MG/3 ML INHALATION STA ×2 (03:13→04:34)
--- NOTE | 2023-04-22 05:31 | ED ---
SOB HPI - General Chief Complaint: Shortness of Breath Stated Complaint: SOB Time Seen by Provider: 04/22/23 03:02 Source: patient Mode of arrival: ambulatory Limitations: no limitations - History of Present Illness Initial Comments: This patient is a 57-year-old man with history of asthma who presents with complaint that he is having wheezing and dyspnea. The patient states that about a week ago he was doing some sanding and believes that he had inhaled some dust and thinks that this set off his asthma. The patient states that since that time he has been having progressively more shortness of breath and wheezing associated with a little bit of nonproductive cough. He denies chest pain. No fever or chills. MD Complaint: shortness of breath, cough Onset/Timin -: days(s) Severity scale (1-10): 0 Consistency: constant Improves With: nothing Worsens With: nothing Known History Of: asthma Associated Symptoms: cough Treatments Prior to Arrival: none - Related Data Home Oxygen Therapy: No Home Medications Medication Instructions Recorded Confirmed ALPRAZolam [Xanax] 0.25 mg PO BID PRN 09/22/19 03/25/20 Amitriptyline HCl [Elavil] 25 mg PO HS 09/22/19 03/25/20 Enalapril [Vasotec] 10 mg PO DAILY 09/22/19 03/25/20 Nortriptyline [Pamelor] 50 mg PO HS 09/22/19 03/25/20 Omeprazole 20 mg PO BID 09/22/19 03/25/20 Ondansetron [Zofran] 4 - 8 mg PO Q8H PRN 09/22/19 03/25/20 Tamsulosin [Flomax] 0.4 mg PO HS 09/22/19 03/25/20 buPROPion HCL [Wellbutrin XL] 300 mg PO DAILY 09/22/19 03/25/20 Albuterol Sulfate [Proair 1 puff INHALATION Q6H PRN 03/14/20 03/25/20 Digihaler] Cholecalciferol (Vitamin D3) 50 mcg PO DAILY 03/14/20 03/25/20 [Vitamin D3] Previous Rx's Medication Instructions Recorded HYDROcodone/APAP 5-325MG [Siler 1 tab PO Q6HR PRN #10 tab 09/28/19 5-325] Lidocaine 5% Patch [Lidoderm] 1 patch TOPICAL DAILY #30 patch 05/16/20 methocarbamoL [Robaxin-750] 750 mg PO TID #30 tablet 05/16/20 Amoxic-Pot Clav 875-125Mg 1 tab PO Q12HR #20 tablet 03/06/22 [Augmentin 875-125] Benzonatate [Tessalon Perles] 100 mg PO TID PRN #15 capsule 03/06/22 Albuterol Inhaler [Ventolin Hfa 2 puff INHALATION Q4HR PRN #8 gm 04/22/23 Inhaler] predniSONE 60 mg PO DAILY #30 tab 04/22/23 Albuterol Nebulized [Ventolin 2.5 mg INHALATION Q4H 8 Days #150 05/05/23 Nebulized] ml predniSONE 50 mg PO DAILY #5 tab 05/05/23 Allergies Allergy/AdvReac Type Severity Reaction Status Date / Time milk Allergy Nausea & Verified 05/04/23 21:43 Vomiting Sulfa (Sulfonamide Allergy Rash/Hives Verified 05/04/23 21:43 Antibiotics) sulfamethoxazole Allergy Swelling Verified 05/04/23 21:43 [From Bactrim] trimethoprim [From Bactrim] Allergy Swelling Verified 05/04/23 21:43 Review of Systems ROS Statement: Those systems with pertinent positive or pertinent negative responses have been documented in the HPI. ROS Other: All systems not noted in ROS Statement are negative. Constitutional: Denies: fever, chills Respiratory: Reports: cough, dyspnea, wheezes. Denies: hemoptysis Cardiovascular: Denies: chest pain, palpitations, edema, syncope Gastrointestinal: Denies: abdominal pain, nausea, vomiting Genitourinary: Denies: dysuria, hematuria Musculoskeletal: Denies: back pain Skin: Denies: rash Neurological: Denies: headache, weakness Past Medical History Past Medical History: Asthma, Hypertension Additional Past Medical History / Comment(s): Fall from standing from ice with temporary loss of consciousness, rib fractures History of Any Multi-Drug Resistant Organisms: None Reported Past Surgical History: Tonsillectomy Additional Past Surgical History / Comment(s): (R) ankle repair, urethral strictures surgery Past Anesthesia/Blood Transfusion Reactions: No Reported Reaction Past Psychological History: Anxiety Smoking Status: Never smoker Past Alcohol Use History: None Reported Past Drug Use History: None Reported - Past Family History Father Family Medical History: Renal Disease Additional Family Medical History / Comment(s): Still living, HD patient Mother Family Medical History: No Reported History General Exam Limitations: no limitations General appearance: alert, in no apparent distress Head exam: Present: atraumatic, normocephalic Eye exam: Present: normal appearance. Absent: scleral icterus, conjunctival injection Neck exam: Present: normal inspection Respiratory exam: Present: wheezes. Absent: respiratory distress, rales, rhonchi, stridor, accessory muscle use, decreased breath sounds Cardiovascular Exam: Present: regular rate, normal rhythm, normal heart sounds. Absent: systolic murmur, diastolic murmur, rubs, gallop GI/Abdominal exam: Present: soft. Absent: distended, tenderness, guarding, rebound, rigid Extremities exam: Present: normal inspection, normal capillary refill. Absent: pedal edema, calf tenderness Back exam: Present: normal inspection. Absent: CVA tenderness (R), CVA tenderness (L) Neurological exam: Present: alert Skin exam: Present: warm, dry, intact, normal color. Absent: rash Course Vital Signs 04/22/23 04/22/23 04/22/23 02:56 04:05 04:17 Temperature 97.8 F Pulse Rate 92 92 88 Respiratory 18 Rate Blood Pressure 117/76 O2 Sat by Pulse 95 Oximetry 04/22/23 04/22/23 04/22/23 04:47 04:58 05:50 Temperature Pulse Rate 88 84 95 Respiratory 18 Rate Blood Pressure 133/79 O2 Sat by Pulse 93 L Oximetry Medical Decision Making - Medical Decision Making The patient had chest x-ray which I interpreted as being negative for acute infiltrate, pneumothorax, congestive heart failure. Was pt. sent in by a medical professional or institution (, PA, SUPERVISOR BLOOD, urgent care, hospital, or penitentiary...) When possible be specific @ -[No] Did you speak to anyone other than the patient for history (EMS, parent, family, police, friend...)? What history was obtained from this source @ -[No] Did you review nursing and triage notes (agree or disagree)? Why? @ -[I reviewed and agree with nursing and triage notes] Were old charts reviewed (outside hosp., previous admission, EMS record, old EKG, old radiological studies, urgent care reports/EKG's, penitentiary records)? Report findings @ -[No old charts were reviewed] Differential Diagnosis (chest pain, altered mental status, abdominal pain women, abdominal pain men, vaginal bleeding, weakness, fever, dyspnea, syncope, headache, dizziness, GI bleed, back pain, seizure, CVA, palpatations, mental health, musculoskeletal)? @ -[Differential Dyspnea: Coronary syndrome, arrhythmia, tamponade, asthma, COPD, pulmonary embolism, pneumonia, pneumothorax, pulmonary effusion, anaphylaxis, diabetic ketoacidosis, flailed chest, pulmonary contusion, diaphragmatic rupture, anemia, neuromuscular, this is not meant to be an all-inclusive list. EKG interpreted by me (3pts min.). @ -[As above] X-rays interpreted by me (1pt min.). @ -[I interpreted as above CT interpreted by me (1pt min.). @ -[None done] U/S interpreted by me (1pt. min.). @ -[None done] What testing was considered but not performed or refused? (CT, X-rays, U/S, labs)? Why? @ -[None] What meds were considered but not given or refused? Why? @ -[None] Did you discuss the management of the patient with other professionals (professionals i.e. , PA, SUPERVISOR BLOOD, lab, RT, psych nurse, social work instructor, funeral assistant, teacher, commissary officer, correctional casework specialist)? Give summary @ -[No] Was smoking cessation discussed for >3mins.? @ -[No] Was critical care preformed (if so, how long)? @ -[No] Were there social determinants of health that impacted care today? How? (Homelessness, low income, unemployed, alcoholism, drug addiction, transportation, low edu. Level, literacy, decrease access to med. care, fpc, rehab)? @ -[No] Was there de-escalation of care discussed even if they declined (Discuss DNR or withdrawal of care, Hospice)? DNR status @ -[No] What co-morbidities impacted this encounter? (DM, HTN, Smoking, COPD, CAD, Cancer, CVA, ARF, Chemo, Hep., AIDS, mental health diagnosis, sleep apnea, morbid obesity)? @ -[None] Was patient admitted / discharged? Hospital course, mention meds given and route, prescriptions, significant lab abnormalities, going to OR and other pertinent info. @ -[This patient is 57-year-old man presenting with dyspnea. The history and physical exam consistent with asthma exacerbation. The patient has had improvement with treatment, feeling well enough to have discharge. We discussed appropriate further care and follow-up as well as return parameters. Undiagnosed new problem with uncertain prognosis? @ -[No] Drug Therapy requiring intensive monitoring for toxicity (Heparin, Nitro, Insulin, Cardizem)? @ -[No] Were any procedures done? @ -[No] Diagnosis/symptom? @ -[Acute exacerbation of asthma Acute, or Chronic, or Acute on Chronic? @ -[Acute on chronic Uncomplicated (without systemic symptoms) or Complicated (systemic symptoms)? @ -[Uncomplicated Side effects of treatment? @ -[No] Exacerbation, Progression, or Severe Exacerbation? @ -[Exacerbation Poses a threat to life or bodily function? How? (Chest pain, [place], NC, pneumonia, PE, COPD, DKA, ARF, appy, cholecystitis, CVA, Diverticulitis, Homicidal, Suicidal, threat to staff... and all critical care pts) @ -[No] - Lab Data Lab Results 04/22/23 Range/Units 03:21 Coronavirus (PCR) Not Detected (Not Detectd) Disposition Clinical Impression: Asthma with acute exacerbation Disposition: HOME SELF-CARE Condition: Good Instructions (If sedation given, give patient instructions): Asthma (ED) Prescriptions: predniSONE 60 mg PO DAILY #30 tab Albuterol Inhaler [Ventolin Hfa Inhaler] 2 puff INHALATION Q4HR PRN #8 gm PRN Reason: Wheezing Is patient prescribed a controlled substance at d/c from ED?: No Referrals: Joseph Turner DO [Primary Care Provider] - 1-2 days
[2023-04-22 05:51] VITALS: BP 133/79; PULSE 95
--- NOTE | 2023-04-22 07:17 | XR ---
EXAMINATION TYPE: XR chest 2V DATE OF EXAM: 04/22/2023 3:30 AM COMPARISON: Chest radiographs from 02/26/2022 TECHNIQUE: XR chest 2V Frontal and lateral views of the chest. CLINICAL INDICATION:Male, 57 years old with history of dyspnea; FINDINGS: Lungs/Pleura: Low lung volumes are present. There is no evidence of pleural effusion, focal consolida tion, or pneumothorax. Pulmonary vascularity: Unremarkable. Heart/mediastinum: Cardiomediastinal silhouette is unremarkable. Musculoskeletal: No acute osseous pathology. IMPRESSION: No acute cardiopulmonary disease/process.
== END 2023-04-22 05:51 | disposition home or self-care (01) ==
LOC: EC 02:52
DX: J45.901 Unspecified asthma with (acute) exacerbation (principal); I10 Essential (primary) hypertension; F41.9 Anxiety disorder, unspecified; Z79.899 Other long term (current) drug therapy; Z88.1 Allergy status to other antibiotic agents; Z88.2 Allergy status to sulfonamides; Z91.011 Allergy to milk products; Z20.822 Contact with and (suspected) exposure to COVID-19
CPT/HCPCS: 94640 ×2; 87635; 71046; 99285; J7512

== ENCOUNTER 2024-01-13 08:10 | Emergency (ER) | payer BC, OTHER ==
[2024-01-13] MEDS: SODIUM CHLORIDE 0.9% 500 ML 500 ML IV STA (08:46)
[2024-01-13 09:20] LABS: Basophils % (A) 1 %; Eosinophils # (A) 0.4 k/uL (0-0.7); Eosinophils % (A) 5 %; HCT 41.7 % (39.0-53.0); HGB 14.3 gm/dL (13.0-17.5); Lymphocytes # (A) 1.3 k/uL (1.0-4.8); Lymphocytes % (A) 19 %; MCH 29.9 pg (25.0-35.0); MCHC 34.3 g/dL (31.0-37.0); MCV 87.3 fL (80.0-100.0); Mean Platelet Volume 8.3; Monocytes # (A) 0.4 k/uL (0-1.0); Monocytes % (A) 6 %; Neutrophils # (A) 4.6 k/uL (1.3-7.7); Neutrophils % (A) 67 %; Platelet Count 194 k/uL (150-450); RBC 4.77 m/uL (4.30-5.90); RDW 13.8 % (11.5-15.5); WBC 6.8 k/uL (3.8-10.6)
[2024-01-13 09:29] LABS: INR 1.1 (<1.2); Partial Thromboplastin Time 27.2 sec (22.0-30.0); Prothrombin Time 12.1 sec (10.0-12.5)
[2024-01-13 09:35] LABS: ALT 28 U/L (4-49); AST 20 U/L (17-59); African American GFR (CKD) 88 (>60 ml/min/1.73 sqM); Albumin 3.9 g/dL (3.5-5.0); Alkaline Phosphatase 54 U/L (38-126); Anion Gap 4 mmol/L; Blood Urea Nitrogen 22 mg/dL (9-20); Calcium 8.5 mg/dL (8.4-10.2); Carbon Dioxide 28 mmol/L (22-30); Chloride 107 mmol/L (98-107); Creatine Kinase 61 U/L (55-170); Glucose 106 mg/dL (74-99); Non-African American GFR(CKD) 76 (>60 ml/min/1.73 sqM); Sodium 139 mmol/L (137-145); Total Bilirubin 0.7 mg/dL (0.2-1.3); Total Protein 6.8 g/dL (6.3-8.2)
[2024-01-13 09:49] LABS: Bacteria,Urine Many /hpf; Hyaline Casts,Urine 95 /lpf (0-2); RBC,Urine >182 /hpf (0-5); WBC,Urine >182 /hpf (0-5)
[2024-01-13 10:17] LABS: Appearance,Urine Turbid (Clear); Color,Urine Dark Red
--- NOTE | 2024-01-13 11:00 | CT ---
EXAMINATION TYPE: CT abdomen pelvis w con CT DLP: 2079 mGycm, Automated exposure control for dose reduction was used. DATE OF EXAM: 01/13/2024 10:40 AM COMPARISON: CT abdomen pelvis most recent from CLINICAL INDICATION:Male, 58 years old with history of hematuria; hematuria, hx of urethral stricture sx TECHNIQUE: Axial CT abdomen pelvis w con;Sagittal and coronal reformats were created on a separate w orkstation. Contrast used:100 mL of Isovue 300 with IV Contrast, (none if empty) Oral contrast used: without Oral Contrast (none if empty) FINDINGS: LOWER CHEST: Multiple left-sided remote rib fractures. Left lower lobe 4 mm pulmonary nodule. Atelect asis changes in the left lung base along the diaphragm. ABDOMEN LIVER: Diffusely hypoattenuating parenchyma. GALLBLADDER AND BILE DUCTS: Layering increased densities within the lumen consistent with gallstones are present. PANCREAS: Unremarkable. SPLEEN: Unremarkable. ADRENAL GLANDS: Unremarkable. KIDNEYS AND URETERS: Mild left hydronephrosis secondary to obstructing 3 mm calculus at the ureteral pelvic brim. Additional calculus more inferiorly may also be present measuring 2 mm. No evidence of h ydronephrosis or renal calculus. The ureters are unremarkable. PELVIS BLADDER: Negative for urinary bladder wall is mildly distended. There is some eccentric wall thickeni ng in the lateral aspects bilaterally. This is favored to be physiologic. REPRODUCTIVE: Unremarkable. ABDOMEN & PELVIS STOMACH AND BOWEL: No evidence of bowel obstruction. The appendix is within normal limits. PERITONEUM/RETROPERITONEUM: No evidence of pneumoperitoneum or free fluid. VASCULATURE: No evidence of aortic aneurysm. MUSCULOSKELETAL: No acute osseous abnormalities. Moderate disc degeneration changes are present throu ghout the thoracolumbar spine. No foraminal stenosis worse at L3-L4 through L5-S1. LYMPH NODES: No gross evidence for lymphadenopathy. SOFT TISSUE/ABDOMINAL WALL: Right fat containing inguinal hernia. Fatty changes of left inguinal yadira l. IMPRESSION: 1. Mild left hydrocele versus obstructing 3 mm calculus at the ureteral pelvic brim. There may be an additional calculus also present. 2. Hepatic steatosis. 3. Right inguinal fat-containing hernia. 4. Cholelithiasis. 5. Multiple left-sided remote rib injuries.
[2024-01-13 12:06] VITALS: RESP 18
--- NOTE | 2024-01-13 12:12 | ED ---
General Adult HPI - General Chief complaint: Urogenital Stated complaint: blood in urine Time Seen by Provider: 01/13/24 08:25 Source: patient, RN notes reviewed, old records reviewed Mode of arrival: ambulatory Limitations: no limitations - History of Present Illness Initial comments: Patient is a 58-year-old male who presents emergency department complaining of hematuria. Denies any other symptoms. Denies chest pain, abdominal pain, naus ea, vomiting. No history of kidney stones. No pain when peeing. Symptoms started on Saturday night and is more obvious now. No history of recent muscle injury. Does have a knee brace on his left knee which is chronic due to poor stability of the left knee. Denies any testicular or groin pain. No other acute complaints.Presents for further evaluation at this time for isolated hematuria. Patient is not on blood thinners. No history of coagulopathies.. - Related Data Home Medications Medication Instructions Recorded Confirmed ALPRAZolam [Xanax] 0.25 mg PO BID PRN 09/22/19 03/25/20 Amitriptyline HCl [Elavil] 25 mg PO HS 09/22/19 03/25/20 Enalapril [Vasotec] 10 mg PO DAILY 09/22/19 03/25/20 Nortriptyline [Pamelor] 50 mg PO HS 09/22/19 03/25/20 Omeprazole 20 mg PO BID 09/22/19 03/25/20 Ondansetron [Zofran] 4 - 8 mg PO Q8H PRN 09/22/19 03/25/20 Tamsulosin [Flomax] 0.4 mg PO HS 09/22/19 03/25/20 buPROPion HCL [Wellbutrin XL] 300 mg PO DAILY 09/22/19 03/25/20 Albuterol Sulfate [Proair 1 puff INHALATION Q6H PRN 03/14/20 03/25/20 Digihaler] Cholecalciferol (Vitamin D3) 50 mcg PO DAILY 03/14/20 03/25/20 [Vitamin D3] Previous Rx's Medication Instructions Recorded HYDROcodone/APAP 5-325MG [[place] 1 tab PO Q6HR PRN #10 tab 09/28/19 5-325] Lidocaine 5% Patch [Lidoderm] 1 patch TOPICAL DAILY #30 patch 05/16/20 methocarbamoL [Robaxin-750] 750 mg PO TID #30 tablet 05/16/20 Amoxic-Pot Clav 875-125Mg 1 tab PO Q12HR #20 tablet 03/06/22 [Augmentin 875-125] Benzonatate [Tessalon Perles] 100 mg PO TID PRN #15 capsule 03/06/22 Albuterol Inhaler [Ventolin Hfa 2 puff INHALATION Q4HR PRN #8 gm 04/22/23 Inhaler] predniSONE 60 mg PO DAILY #30 tab 04/22/23 Albuterol Nebulized [Ventolin 2.5 mg INHALATION Q4H 8 Days #150 05/05/23 Nebulized] ml predniSONE 50 mg PO DAILY #5 tab 05/05/23 Ciprofloxacin HCl [Cipro] 500 mg PO BID 3 Days #6 tab 01/13/24 Tamsulosin [Flomax] 0.4 mg PO DAILY 14 Days #14 cap 01/13/24 Allergies Allergy/AdvReac Type Severity Reaction Status Date / Time milk Allergy Nausea & Verified 01/13/24 08:13 Vomiting Sulfa (Sulfonamide Allergy Rash/Hives Verified 01/13/24 08:13 Antibiotics) sulfamethoxazole Allergy Swelling Verified 01/13/24 08:13 [From Bactrim] trimethoprim [From Bactrim] Allergy Swelling Verified 01/13/24 08:13 Review of Systems ROS Statement: Those systems with pertinent positive or pertinent negative responses have been documented in the HPI. Review of Systems: CONST: Denies fever EYES: Denies blurry vision ENT: Denies nasal congestion C/V: Denies Chest pain RESP: Denies shortness of breath GI: Denies abdominal pain : Endorses hematuria SKIN: Denies rash. MSK: Denies joint pain. NEURO: Denies headache ROS Other: All systems not noted in ROS Statement are negative. Past Medical History Past Medical History: Asthma, Hypertension Additional Past Medical History / Comment(s): Fall from standing from ice with temporary loss of consciousness, rib fractures History of Any Multi-Drug Resistant Organisms: None Reported Past Surgical History: Tonsillectomy Additional Past Surgical History / Comment(s): (R) ankle repair, urethral strictures surgery Past Anesthesia/Blood Transfusion Reactions: No Reported Reaction Past Psychological History: Anxiety Smoking Status: Never smoker Past Alcohol Use History: None Reported Past Drug Use History: None Reported - Past Family History Father Family Medical History: Renal Disease Additional Family Medical History / Comment(s): Still living, HD patient Mother Family Medical History: No Reported History General Exam - General Exam Comments Initial Comments: General: Appears in no acute distress. HEAD: Normal with no signs of head trauma. EYES: PERRLA, EOMI, conjunctiva normal, no discharge. ENT: Hearing grossly intact, normal oropharynx. RESPIRATORY: Clear breath sounds bilaterally. No wheezes, rales, or rhonchi. C/V: Regular rate and rhythm. S1 and S2 auscultated, no edema, peripheral pulses 2+ and intact throughout ABD: Abd is soft, nontender, nondistended EXT: Normal range of motion, no obvious deformity SKIN: No rashes or lesions observed on exposed skin. NEURO: Alert and oriented x 4. Limitations: no limitations Course Vital Signs 01/13/24 01/13/24 01/13/24 08:11 11:39 12:37 Temperature 98.3 F 97.9 F 98.4 F Pulse Rate 98 83 79 Respiratory 20 18 18 Rate Blood Pressure 149/96 135/79 133/72 O2 Sat by Pulse 98 99 98 Oximetry Medical Decision Making - Medical Decision Making Was pt. sent in by a medical professional or institution (, PA, SCALP SPECIALIST, urgent care, hospital, or usp...) When possible be specific @ -No Did you speak to anyone other than the patient for history (EMS, parent, family, police, friend...)? What history was obtained from this source @ -No Did you review nursing and triage notes (agree or disagree)? Why? @ -I reviewed and agree with nursing and triage notes Were old charts reviewed (outside hosp., previous admission, EMS record, old EKG, old radiological studies, urgent care reports/EKG's, usp records)? Report findings @ -Old charts reviewed Differential Diagnosis (chest pain, altered mental status, abdominal pain women, abdominal pain men, vaginal bleeding, weakness, fever, dyspnea, syncope, headache, dizziness, GI bleed, back pain, seizure, CVA, palpatations, mental health, musculoskeletal)? @ -UTI, kidney stone, MONIAK. This list is not all inclusive. EKG interpreted by me (3pts min.). @ -None done X-rays interpreted by me (1pt min.). @ -None done CT interpreted by me (1pt min.). @ -CT reveals findings concerning for left hydrocele versus calculus at the ureteropelvic brim. In the setting of hematuria, ureteral lithiasis makes the most sense. Remainder the CT relatively unremarkable for any obvious acute process. U/S interpreted by me (1pt. min.). @ -None done What testing was considered but not performed or refused? (CT, X-rays, U/S, labs)? Why? @ -None What meds were considered but not given or refused? Why? @ -None Did you discuss the management of the patient with other professionals (professionals i.e. , PA, SCALP SPECIALIST, lab, RT, psych nurse, clinical social work therapist, clinical academic allergist, teacher, privacy officer, nurse case manager)? Give summary @ -No Was smoking cessation discussed for >3mins.? @ -No Was critical care preformed (if so, how long)? @ -No Were there social determinants of health that impacted care today? How? (Homelessness, low income, unemployed, alcoholism, drug addiction, transportat ion, low edu. Level, literacy, decrease access to med. care, correction, rehab)? @ -No Was there de-escalation of care discussed even if they declined (Discuss DNR or withdrawal of care, Hospice)? DNR status @ -No What co-morbidities impacted this encounter? (DM, HTN, Smoking, COPD, CAD, Cancer, CVA, ARF, Chemo, Hep., AIDS, mental health diagnosis, sleep apnea, morbid obesity)? @ -None Was patient admitted / discharged? Hospital course, mention meds given and route, prescriptions, significant lab abnormalities, going to OR and other pertinent info. @ -Patient presents with isolated hematuria. We will obtain generalized abdominal labs as well as CT. Patient was in agreement this plan. He will receive IV fluids. Vital signs are within acceptable limits. CT imaging shows left-sided ureterolithiasis that is suspected. Urinalysis remarkable for white blood cells as well as RBCs. This is likely also contaminated from either a stone or the blood at this time. Patient empirically started on antibiotics. Remainder the labs all within acceptable limits. Kidney function within normal limits. I discussed results with patient. He will be empirically started on antibiotics, given Flomax, Zofran and pain meds for home. He remains asymptomatic at this time. Recommended close follow-up with his PCP and he was in agreement this plan. This stone should pass on its own as they are small. Strict return precautions discussed. I will provide the patient with a prescription for ciprofloxacin. I instructed the patient to follow up with their PCP in the next 1-3 days. I provided cont act information for follow up with urology. I explained that the patient should return to the emergency department if they experience any worsening symptoms. Strict return precautions were discussed with the patient. The patient expressed understanding of these instructions. I answered all questions that the patient had. The patient was discharged home in good condition with their prescriptions and follow up information. Undiagnosed new problem with uncertain prognosis? @ -No Drug Therapy requiring intensive monitoring for toxicity (Heparin, Nitro, Insulin, Cardizem)? @ -No Were any procedures done? @ -No Diagnosis/symptom? @ -Ureterolithiasis, Hematuria Acute, or Chronic, or Acute on Chronic? @ -Acute Uncomplicated (without systemic symptoms) or Complicated (systemic symptoms)? @ -Complicated Side effects of treatment? @ -No Exacerbation, Progression, or Severe Exacerbation? @ -No Poses a threat to life or bodily function? How? (Chest pain, [place], [place], pneumonia, PE, COPD, DKA, ARF, appy, cholecystitis, CVA, Diverticulitis, Homicidal, Suicidal, threat to staff... and all critical care pts) @ -Unlikely - Lab Data Result diagrams: 01/13/24 08:47 01/13/24 08:47 Lab Results 01/13/24 01/13/24 01/13/24 Range/Units 08:47 08:47 08:47 WBC 6.8 (3.8-10.6) k/uL RBC 4.77 (4.30-5.90) m/uL Hgb 14.3 (13.0-17.5) gm/dL Hct 41.7 (39.0-53.0) % MCV 87.3 (80.0-100.0) fL MCH 29.9 (25.0-35.0) pg MCHC 34.3 (31.0-37.0) g/dL RDW 13.8 (11.5-15.5) % Plt Count 194 (150-450) k/uL MPV 8.3 Neutrophils % 67 % Lymphocytes % 19 % Monocytes % 6 % Eosinophils % 5 % Basophils % 1 % Neutrophils # 4.6 (1.3-7.7) k/uL Lymphocytes # 1.3 (1.0-4.8) k/uL Monocytes # 0.4 (0-1.0) k/uL Eosinophils # 0.4 (0-0.7) k/uL Basophils # 0.0 (0-0.2) k/uL PT 12.1 (10.0-12.5) sec INR 1.1 (<1.2) APTT 27.2 (22.0-30.0) sec Sodium (137-145) mmol/L Potassium (3.5-5.1) mmol/L Chloride (98-107) mmol/L Carbon Dioxide (22-30) mmol/L Anion Gap mmol/L BUN (9-20) mg/dL Creatinine (0.66-1.25) mg/dL Est GFR (CKD-EPI)AfAm (>60 ml/min/1.73 sqM) Est GFR (CKD-EPI)NonAf (>60 ml/min/1.73 sqM) Glucose (74-99) mg/dL Calcium (8.4-10.2) mg/dL Total Bilirubin (0.2-1.3) mg/dL AST (17-59) U/L ALT (4-49) U/L Alkaline Phosphatase (38-126) U/L Creatine Kinase (55-170) U/L Total Protein (6.3-8.2) g/dL Albumin (3.5-5.0) g/dL Urine Color Dark Red Urine Appearance Turbid (Clear) Urine RBC >182 H (0-5) /hpf Urine WBC >182 H (0-5) /hpf Urine Bacteria Many H (None) /hpf Hyaline Casts 95 H (0-2) /lpf 01/13/24 Range/Units 08:47 WBC (3.8-10.6) k/uL RBC (4.30-5.90) m/uL Hgb (13.0-17.5) gm/dL Hct (39.0-53.0) % MCV (80.0-100.0) fL MCH (25.0-35.0) pg MCHC (31.0-37.0) g/dL RDW (11.5-15.5) % Plt Count (150-450) k/uL MPV Neutrophils % % Lymphocytes % % Monocytes % % Eosinophils % % Basophils % % Neutrophils # (1.3-7.7) k/uL Lymphocytes # (1.0-4.8) k/uL Monocytes # (0-1.0) k/uL Eosinophils # (0-0.7) k/uL Basophils # (0-0.2) k/uL PT (10.0-12.5) sec INR (<1.2) APTT (22.0-30.0) sec Sodium 139 (137-145) mmol/L Potassium 4.0 (3.5-5.1) mmol/L Chloride 107 (98-107) mmol/L Carbon Dioxide 28 (22-30) mmol/L Anion Gap 4 mmol/L BUN 22 H (9-20) mg/dL Creatinine 1.07 (0.66-1.25) mg/dL Est GFR (CKD-EPI)AfAm 88 (>60 ml/min/1.73 sqM) Est GFR (CKD-EPI)NonAf 76 (>60 ml/min/1.73 sqM) Glucose 106 H (74-99) mg/dL Calcium 8.5 (8.4-10.2) mg/dL Total Bilirubin 0.7 (0.2-1.3) mg/dL AST 20 (17-59) U/L ALT 28 (4-49) U/L Alkaline Phosphatase 54 (38-126) U/L Creatine Kinase 61 (55-170) U/L Total Protein 6.8 (6.3-8.2) g/dL Albumin 3.9 (3.5-5.0) g/dL Urine Color Urine Appearance (Clear) Urine RBC (0-5) /hpf Urine WBC (0-5) /hpf Urine Bacteria (None) /hpf Hyaline Casts (0-2) /lpf Disposition Clinical Impression: Ureterolithiasis, Hematuria Disposition: HOME SELF-CARE Condition: Good Instructions (If sedation given, give patient instructions): Kidney Stones (ED) Prescriptions: Ciprofloxacin HCl [Cipro] 500 mg PO BID 3 Days #6 tab Tamsulosin [Flomax] 0.4 mg PO DAILY 14 Days #14 cap Is patient prescribed a controlled substance at d/c from ED?: No Referrals: Joseph Turner DO [Primary Care Provider] - 1-2 days Jorge Luis Ugalde MD [STAFF PHYSICIAN] - 1-2 days Time of Disposition: 12:10
[2024-01-13] MEDS: ACET/COD 300 MG/30 MG STARTER PACK 6 TAB BTL PO STA (12:22)
[2024-01-13] MEDS: ONDANSETRON 4 MG ODT STARTER PACK 2 TAB BTL PO STA (12:22)
[2024-01-13] MEDS: TAMSULOSIN 0.4 MG CAP.ER.24H PO STA (12:23)
[2024-01-13] MEDS: CIPROFLOXACIN HCL 500 MG TAB PO STA (12:25)
[2024-01-13 12:52] VITALS: BP 133/72; PULSE 79; TEMP 98.4
== END 2024-01-13 12:39 | disposition home or self-care (01) ==
LOC: EC 08:10
DX: N20.1 Calculus of ureter (principal); Z88.2 Allergy status to sulfonamides; Z88.1 Allergy status to other antibiotic agents; Z91.011 Allergy to milk products
CPT/HCPCS: 99284; 96360; 36415; 80053; 82550; 85025; 85610; 85730; 81001; 74177; S0119; Q9967